=== PATIENT | male | born 1975 | race Caucasian/White ===

== ENCOUNTER 2016-08-15 06:05 | Emergency (ER) | payer SELFPAY ==
[2016-08-15 06:21] VITALS: BP 150/93
[2016-08-15] MEDS ORDERED: TETRACAINE HCL 0.5% OPH SOLN 2 ML OD ONE (06:36)
--- NOTE | 2016-08-15 06:45 | ER Document Report ---
ED General - General Chief Complaint: Eye Problem Stated Complaint: EYE SWELLING Mode of Arrival: Ambulatory Information source: Patient Notes: 41-year-old male history of styes presents with complaints of right upper eyelid swelling of the first 5 day duration. Patient notes symptoms worsen today, had improved over the past few days. Patient denies any fevers or chills denies any specific pain but notes it irritates his eye. Patient has had some drainage TRAVEL OUTSIDE OF THE [place] IN LAST 30 DAYS: No - HPI Onset: Last week Onset/Duration: Persistent Quality of pain: Burning Severity: Mild Pain Level: 1 Associated symptoms: Other Exacerbated by: Denies Relieved by: Denies Similar symptoms previously: Yes Recently seen / treated by doctor: Yes - Related Data Allergies/Adverse Reactions: No Known Allergies Allergy (Verified 04/18/15 04:47) Past Medical History - Social History Smoking Status: Current Every Day Smoker Cigarette use (# per day): Yes Chew tobacco use (# tins/day): No Smoking Education Provided: No Family History: Reviewed & Not Pertinent Patient has suicidal ideation: No Patient has homicidal ideation: No Renal/ Medical History: Denies: Hx Peritoneal Dialysis Musculoskeltal Medical History: Reports Hx Musculoskeletal Deformity, Reports Hx Musculoskeletal Trauma Psychiatric Medical History: Reports: Hx Anxiety Past Surgical History: Reports: Hx Abdominal Surgery - hernia repair, Hx Herniorrhaphy, Hx Myringotomy - Immunizations Hx Diphtheria, Pertussis, Tetanus Vaccination: Yes Review of Systems - Review of Systems Notes: REVIEW OF SYSTEMS: CONSTITUTIONAL : Denies fever, chills, or sweats. Denies recent illness. EENT: right eyelid swelling pain CARDIOVASCULAR: Denies chest pain. Denies palpitations or racing or irregular heart beat. Denies ankle edema. RESPIRATORY: Denies cough, cold, or chest congestion. Denies shortness of breath, difficulty breathing, or wheezing. GASTROINTESTINAL: Denies abdominal pain or distention. Denies nausea, vomiting , or diarrhea. Denies blood in vomitus, stools, or per rectum. Denies black, tarry stools. Denies constipation. GENITOURINARY: Denies difficulty urinating, painful urination, burning, frequency, blood in urine, or discharge. MUSCULOSKELETAL: Denies back or neck pain or stiffness. Denies joint pain or swelling. SKIN: Denies rash, lesions or sores. HEMATOLOGIC : Denies easy bruising or bleeding. LYMPHATIC: Denies swollen, enlarged glands. NEUROLOGICAL: Denies confusion or altered mental status. Denies passing out or loss of consciousness. Denies dizziness or lightheadedness. Denies headache. Denies weakness or paralysis or loss of use of either side. Denies problems with gait or speech. Denies sensory loss, numbness, or tingling. Denies seizures. PSYCHIATRIC: Denies anxiety or stress. Denies depression, suicidal ideation, or homicidal ideation. ALL OTHER SYSTEMS REVIEWED AND NEGATIVE. Dictation was performed using [employer] voice recognition software PHYSICAL EXAMINATION: GENERAL: Well-appearing, well-nourished and in no acute distress. HEAD: Atraumatic, normocephalic. EYES: Pupils equal round extraocular movements intact, conjunctiva are normal. right upper eyelid edema, tender in the lateral aspect ENT: Nares patent NECK: Normal range of motion LUNGS: No respiratory distress Musculoskeletal: Normal range of motion NEUROLOGICAL: Normal speech, normal gait. PSYCH: Normal mood, normal affect. SKIN: Warm, Dry, normal turgor, no rashes or lesions noted. Physical Exam - Vital signs Vitals: Temp Pulse Resp BP Pulse Ox 97.9 F 81 16 150/93 H 98 08/15/16 06:16 08/15/16 06:16 08/15/16 06:16 08/15/16 06:16 08/15/16 06:16 Course - Re-evaluation Re-evalutation: 08/15/16 06:46 41-year-old male presents with eyelid swelling, area was anesthetized evaluated small styes noted on the lateral aspect. Patient encouraged to do warm compress. There may be cellulitic component of the upper eyelid which would require antibiotics at this time. Patient otherwise well-appearing afebrile and stable for discharge with ophthalmology follow-up After performing a Medical Screening Examination, I estimate there is LOW risk for a RETAINED CORNEAL or LID FOREIGN BODY, DEEP SPACE INFECTION (e.g., ORBITAL CELLULITIS OR ABSCESS), ACUTE GLAUCOMA, PENETRATING GLOBE INJURY, RETINAL DETACHMENT, or MENINGITIS thus I consider the discharge disposition reasonable. I have reevaluated this patient multiple times and no significant life threatening changes are noted. Also, there is no evidence or peritonitis, sepsis , or toxicity. The patient and I have discussed the diagnosis and risks, and we agree with discharging home with outpatient follow-up with the understanding that symptoms and presentations can change. We also discussed returning to the Emergency Department immediately if new or worsening symptoms occur. We have discussed the symptoms which are most concerning (e.g., changing or worsening pain, vision changes, neck stiffness or fever) that necessitate immediate return. - Vital Signs Vital signs: Temp Pulse Resp BP Pulse Ox 97.9 F 81 16 150/93 H 98 08/15/16 06:16 08/15/16 06:16 08/15/16 06:16 08/15/16 06:16 08/15/16 06:16 Discharge - Discharge Clinical Impression: Edema of right upper eyelid Stye external Qualifiers: Laterality: right Eyelid: upper Qualified Code(s): H00.011 - Hordeolum externum right upper eyelid Condition: Stable Disposition: HOME, SELF-CARE Instructions: Srinivasan ([facility]) Prescriptions: Cephalexin Monohydrate [Keflex 500 mg Capsule] 500 mg PO QID #40 capsule Forms: Return to Work Referrals: FRANCISCA DUFFY DO [ACTIVE STAFF] - Follow up in 3-5 days
== END 2016-08-15 06:49 | disposition home or self-care (01) ==
LOC: ER 06:05
DX: H00.011 Hordeolum externum right upper eyelid (principal); H02.841 Edema of right upper eyelid; F17.210 Nicotine dependence, cigarettes, uncomplicated
CPT/HCPCS: 99283

== ENCOUNTER 2016-09-21 10:04 | Emergency (ER) | payer SELFPAY ==
--- NOTE | 2016-09-21 11:30 | ER Document Report ---
ED Eye Complaint - General Chief Complaint: Eye Pain Stated Complaint: EYE PAIN Time Seen by Provider: 09/21/16 11:18 Information source: Patient Notes: 41-year-old male who presents today with the onset yesterday of feeling some right eye upper eyelid swelling. Patient denies any foreign bodies into the eye. Patient works as a cook. Patient feels some mild irritation to his left upper eyelid, but right much greater than left. He denies any nausea, vomiting , fevers, blurry vision, or headaches. Patient wears only reading glasses. He does not wear contacts. TRAVEL OUTSIDE OF THE [place] IN LAST 30 DAYS: No - HPI Onset: Other - The above Eye location: Right Injury: No Occurred at: Home Quality of pain: Burning Severity: Mild Pain Level: 0 Exposure: Other - See above - Related Data Allergies/Adverse Reactions: No Known Allergies Allergy (Verified 09/21/16 10:21) Past Medical History - General Information source: Patient - Social History Smoking Status: Unknown if Ever Smoked Cigarette use (# per day): No Chew tobacco use (# tins/day): No Smoking Education Provided: No Frequency of alcohol use: None Family History: Reviewed & Not Pertinent Patient has suicidal ideation: No Patient has homicidal ideation: No Renal/ Medical History: Denies: Hx Peritoneal Dialysis Musculoskeltal Medical History: Reports Hx Musculoskeletal Deformity, Reports Hx Musculoskeletal Trauma Psychiatric Medical History: Reports: Hx Anxiety Past Surgical History: Reports: Hx Abdominal Surgery - hernia repair, Hx Herniorrhaphy, Hx Myringotomy - Immunizations Hx Diphtheria, Pertussis, Tetanus Vaccination: Yes Physical Exam - Vital signs Vitals: Temp Pulse Resp BP Pulse Ox 98.4 F 77 16 134/93 H 97 09/21/16 10:22 09/21/16 10:22 09/21/16 10:22 09/21/16 10:22 09/21/16 10:22 Notes: Reviewed vital signs and nursing note as charted by RN. CONSTITUTIONAL: Alert and oriented and responds appropriately to questions. Well -appearing; well-nourished HEAD: Normocephalic; atraumatic EYES: PERRL; full extraocular range of motion; patient has some erythema and swelling to the upper eyelid margin of the right eye. There was no periorbital extension, swelling, or erythema. No foreign bodies present. Fluorescein exam is unremarkable. I everted the eyelid showing no foreign bodies or abscesses present. Patient's right eye has some very minimal crusting to the left upper eyelid. No obvious swelling present. ENT: Normal nose; no rhinorrhea; moist mucous membranes; pharynx without lesions noted NEURO: CN II through XII are intact. PSYCH: The patient's mood and manner are appropriate. Grooming and personal hygiene are appropriate. - HEENT Visual acuity- Right eye: 20/15 Visual acuity- Left eye: 20/20 Visual acuity- Both eyes: 20/15 Corrective lenses worn: No Course - Re-evaluation Re-evalutation: 09/21/16 11:26 Given the above history and physical examination I believe that the patient most likely suffering from hordeolum. I have explained warm compresses. I examination as recorded with a normal visual acuity exam. We will provide strict return precautions, ophthalmology follow-up, as well as erythromycin eye ointment for comfort. - Vital Signs Vital signs: Temp Pulse Resp BP Pulse Ox 98.4 F 77 16 134/93 H 97 09/21/16 10:22 09/21/16 10:22 09/21/16 10:22 09/21/16 10:22 09/21/16 10:22 Discharge - Discharge Clinical Impression: Hordeolum external Qualifiers: Laterality: right Eyelid: upper Qualified Code(s): H00.011 - Hordeolum externum right upper eyelid Condition: Good Disposition: HOME, SELF-CARE Instructions: Srinivasan ([facility]) Additional Instructions: Please apply warm compresses to the upper eyelid for 20 minutes on 3 times a day. Come back immediately with any facial swelling, nausea, vomiting, blurry vision, or fevers. Please follow-up with ophthalmology as we have discussed. Prescriptions: Erythromycin Base [Erythromycin] 3.5 gm OP 6XD 7 Days Referrals: DAMIR SAMUELS MD [[facility]] - Follow up as needed
[2016-09-21 11:44] VITALS: BP 138/83
== END 2016-09-21 11:42 | disposition home or self-care (01) ==
LOC: ER 10:04
DX: H00.011 Hordeolum externum right upper eyelid (principal); H57.11 Ocular pain, right eye
CPT/HCPCS: 99283

== ENCOUNTER 2016-10-13 05:56 | Emergency (ER) | payer OTHER ==
[2016-10-13] MEDS ORDERED: ASPIRIN 81 MG TABLET, CHEWABLE PO ONE (07:01)
[2016-10-13 07:52] LABS: ABSOLUTE BASOPHILS # (AUTO) 0.1 10^3/uL (0.0-0.2); ABSOLUTE EOSINOPHILS # (AUTO) 0.1 10^3/uL (0.0-0.6); ABSOLUTE LYMPHOCYTES (AUTO) 1.2 10^3/uL (0.5-4.7); ABSOLUTE MONOCYTES (AUTO) 0.8 10^3/uL (0.1-1.4); ABSOLUTE NEUT (AUTO) 3.9 10^3/uL (1.7-8.2); BASOPHILS % (AUTO) 0.9 % (0-2); EOSINOPHILS % (AUTO) 0.8 % (0-6); HEMATOCRIT 54.4 % (37.9-51.0); HEMOGLOBIN 18.4 g/dL (13.5-17.0); HGB HCT DIFFERENCE 0.8; LYMPHOCYTES % (AUTO) 19.9 % (13-45); MEAN CORPUSCULAR HGB CONC 33.8 g/dL (32.0-36.0); MEAN CORPUSCULAR VOLUME 95 fl (80-97); MONOCYTES % (AUTO) 13.2 % (3-13); RED BLOOD COUNT 5.76 10^6/uL (4.35-5.55); RED CELL DISTRIBUTION WIDTH 13.2 % (11.5-14.0); SEGMENTED NEUTROPHILS % (AUTO) 65.2 % (42-78)
[2016-10-13 08:01] LABS: PROTHROMBIN TIME 12.6 SEC (11.4-15.4)
--- NOTE | 2016-10-13 08:04 | EKG REPORT ---
SEVERITY:- NORMAL ECG - SINUS RHYTHM : Confirmed by: Remi Tipton MD 13-Oct-2016 08:03:36
[2016-10-13 08:14] LABS: ALANINE AMINOTRANSFERASE 21 U/L (21-72); ALBUMIN 4.4 g/dL (3.5-5.0); ALKALINE PHOSPHATASE 99 U/L (38-126); ANION GAP 11 (5-19); ASPARTATE AMINO TRANSFERASE 35 U/L (17-59); BILIRUBIN,DIRECT 0.4 mg/dL (0.0-0.4); BILIRUBIN,TOTAL 0.7 mg/dL (0.2-1.3); BLOOD UREA NITROGEN 13 mg/dL (7-20); CALCIUM 9.7 mg/dL (8.4-10.2); CARBON DIOXIDE 25 mmol/L (22-30); CHLORIDE 103 mmol/L (98-107); CREATINE KINASE 38 U/L (55-170); CREATININE RESULT 0.93 mg/dL (0.52-1.25); GLUCOSE 103 mg/dL (75-110); POTASSIUM 4.5 mmol/L (3.6-5.0); TOTAL PROTEIN 8.2 g/dL (6.3-8.2)
[2016-10-13 08:20] LABS: CREATINE KINASE MB 0.28 ng/mL (<4.55)
[2016-10-13] MEDS ORDERED: NORMAL SALINE 1000 ML 1,000 ML IV ONE (08:20)
[2016-10-13 08:26] LABS: TROPONIN I < 0.012 ng/mL
--- NOTE | 2016-10-13 08:28 | RADIOLOGY REPORT (SQ) ---
EXAM DESCRIPTION: CERV SP 4 OR 5 VIEWS COMPLETED DATE/TIME: 10/13/2016 8:11 am REASON FOR STUDY: cp left arm pain COMPARISON: None. NUMBER OF VIEWS: Five views. TECHNIQUE: AP, lateral, obliques and odontoid radiographic images acquired of the cervical spine. LIMITATIONS: None. FINDINGS: MINERALIZATION: Normal. ALIGNMENT: Anatomic. VERTEBRAE: Vertebral bodies of normal height. DISCS: Minimal disc space loss C4-5 with minimal osteophyte formation seen at most levels. FORAMINA: Mild neural foraminal narrowing on the left at C4-5, C5-6 and C6-7. Moderate neural forami nal narrowing on the right at C4-5 with mild narrowing on the right at C6-7. LATERAL AND POSTERIOR ELEMENTS: Status post left-sided laminectomy at C4, C5 and C6 with micro screw and plate devices being noted. HARDWARE: None in the spine. SOFT TISSUES: No masses or calcifications. Lung apices clear. OTHER: No other significant finding. IMPRESSION: Postoperative changes and mild degenerative changes. TECHNICAL DOCUMENTATION: JOB ID: [id number] [employer]- All Rights Reserved
--- NOTE | 2016-10-13 08:29 | RADIOLOGY REPORT (SQ) ---
EXAM DESCRIPTION: CHEST PA/LAT COMPLETED DATE/TIME: 10/13/2016 8:11 am REASON FOR STUDY: cp COMPARISON: None. EXAM PARAMETERS: NUMBER OF VIEWS: two views TECHNIQUE: Digital Frontal and Lateral radiographic views of the chest acquired. RADIATION DOSE: NA LIMITATIONS: none FINDINGS: LUNGS AND PLEURA: No opacities, masses or pneumothorax. No pleural effusion. MEDIASTINUM AND HILAR STRUCTURES: No masses or contour abnormalities. HEART AND VASCULAR STRUCTURES: Cardiac silhouette is of normal size. Mild vascular congestion. BONES: No acute findings. HARDWARE: None in the chest. OTHER: No other significant finding. IMPRESSION: Mild vascular congestion. TECHNICAL DOCUMENTATION: JOB ID: [id number] [employer]- All Rights Reserved
[2016-10-13] MEDS ORDERED: MAG HYDROX/AL HYDROX/SIMETH SUSP 30 ML UDCUP PO ONE (10:43)
[2016-10-13] MEDS ORDERED: METOCLOPRAMIDE HCL ORAL SOLN 10 MG/10 ML UDCUP PO ONE (10:43)
[2016-10-13] MEDS ORDERED: LIDOCAINE 2% VISCOUS SOLN 20 ML UDCUP PO ONE (10:43)
--- NOTE | 2016-10-13 14:13 | ER Document Report ---
ED General - General Chief Complaint: Chest Pain Stated Complaint: CHEST PAIN/ARM NUMBNESS Time Seen by Provider: 10/13/16 07:00 TRAVEL OUTSIDE OF THE [place] IN LAST 30 DAYS: No - HPI Patient complains to provider of: Chest pain left-sided Notes: If her left-sided chest pain started this morning upon awakening. Patient also states noticing that his left arm was numb and tingling. 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 States multiple surgeries. Unclear if the numbness and tingling is new. Patient states pressure in the chest rating 2 out of 5. Denies any fevers chills nausea vomiting shortness of breath recent travel denies any trauma denies any past medical history patient does smoke denies any family medical history. - Related Data Allergies/Adverse Reactions: No Known Allergies Allergy (Verified 09/21/16 10:21) Past Medical History - Social History Smoking Status: Unknown if Ever Smoked Family History: Reviewed & Not Pertinent Patient has suicidal ideation: No Patient has homicidal ideation: No Renal/ Medical History: Denies: Hx Peritoneal Dialysis Musculoskeltal Medical History: Reports Hx Musculoskeletal Deformity, Reports Hx Musculoskeletal Trauma Psychiatric Medical History: Reports: Hx Anxiety Past Surgical History: Reports: Hx Abdominal Surgery - hernia repair, Hx Herniorrhaphy, Hx Myringotomy - Immunizations Hx Diphtheria, Pertussis, Tetanus Vaccination: Yes Review of Systems - Review of Systems Constitutional: No symptoms reported EENT: No symptoms reported Cardiovascular: Chest pain Respiratory: No symptoms reported Gastrointestinal: No symptoms reported Genitourinary: No symptoms reported Male Genitourinary: No symptoms reported Musculoskeletal: No symptoms reported Skin: No symptoms reported Hematologic/Lymphatic: No symptoms reported Neurological/Psychological: No symptoms reported Physical Exam - Vital signs Vitals: Pulse Resp BP Pulse Ox 89 19 139/87 H 100 10/13/16 06:00 10/13/16 06:00 10/13/16 06:00 10/13/16 06:00 Interpretation: Normal - General General appearance: Appears well, Alert - HEENT Head: Normocephalic, Atraumatic Eyes: Normal Pupils: PERRL - Respiratory Respiratory status: No respiratory distress Chest status: Nontender Breath sounds: Normal Chest palpation: Normal - Cardiovascular Rhythm: Regular Heart sounds: Normal auscultation Murmur: No - Abdominal Inspection: Normal Distension: No distension Bowel sounds: Normal Tenderness: Nontender Organomegaly: No organomegaly - Back Back: Normal, Nontender - Extremities General upper extremity: Normal inspection, Nontender, Normal color, Normal ROM , Normal temperature General lower extremity: Normal inspection, Nontender, Normal color, Normal ROM , Normal temperature, Normal weight bearing. No: Brisa's sign - Neurological Neuro grossly intact: Yes Cognition: Normal Orientation: AAOx4 [place] Coma Scale Eye Opening: Spontaneous [place] Coma Scale Verbal: Oriented [place] Coma Scale Motor: Obeys Commands [place] Coma Scale Total: 15 Speech: Normal Motor strength normal: LUE, RUE, LLE, RLE Sensory: Normal - Psychological Associated symptoms: Normal affect, Normal mood - Skin Skin Temperature: Warm Skin Moisture: Dry Skin Color: Normal Course - Re-evaluation Re-evalutation: 10/13/16 15:13 The patient has atypical chest pain as the patient's chest pain is not suggestive of pulmonary embolus, cardiac ischemia, aortic dissection, or other serious etiology. Given the extremely low risk of these diagnoses further testing and evaluation for these possibilities does not appear to be indicated at this time. The patient has been instructed to return if the symptoms worsen or change in any way. Heart score is 1 discussed with assistant account manager socorro agrees with outpatient workup - Vital Signs Vital signs: Temp Pulse Resp BP Pulse Ox 98.1 F 87 19 142/91 H 98 10/13/16 11:00 10/13/16 06:11 10/13/16 14:01 10/13/16 14:01 10/13/16 14:01 - Laboratory Result Diagrams: 10/13/16 07:40 10/13/16 07:40 Laboratory results interpreted by me: 10/13/16 10/13/16 07:40 07:40 RBC 5.76 H Hgb 18.4 H Hct 54.4 H Monocytes % 13.2 H Creatine Kinase 38 L Discharge - Discharge Clinical Impression: Chest pain Qualifiers: Chest pain type: unspecified Qualified Code(s): R07.9 - Chest pain, unspecified Condition: Good Disposition: HOME, SELF-CARE Instructions: Aspirin (Cardiac) ([facility]), Chest Pain of Unclear Cause ([facility]), Chest Wall Pain ([facility]) Additional Instructions: Your chest x-ray and laboratory studies today do not show any significant signs of cardiac damage no signs or clear etiology for your chest pain. He follow-up with the assistant account manager provided tomorrow. Return to the ER symptoms worsen Forms: Return to Work Referrals: NAI HYED MD [ACTIVE STAFF] - Follow up as needed
[2016-10-13 14:39] VITALS: BP 142/91
--- NOTE | 2016-10-13 18:10 | EKG REPORT ---
SEVERITY:- NORMAL ECG - SINUS RHYTHM : Confirmed by: Remi Tipton MD 13-Oct-2016 18:09:33
--- NOTE | 2016-10-15 16:38 | EKG REPORT ---
SEVERITY:- NORMAL ECG - SINUS RHYTHM : Confirmed by: Remi Tipton MD 15-Oct-2016 16:38:04
== END 2016-10-13 14:48 | disposition home or self-care (01) ==
LOC: ER 05:56
DX: R07.9 Chest pain, unspecified (principal); R20.0 Anesthesia of skin
CPT/HCPCS: 93005 ×2; 99285; 96360; 36415; 82553; 82550; 85025; 85610; 80053; 84484; 72050; 71020; 93010; J3490; J7030

== ENCOUNTER 2016-10-15 14:34 | Emergency (ER) | payer OTHER ==
--- NOTE | 2016-10-15 15:01 | ER Document Report ---
ED Medical Screen (RME) - General Chief Complaint: Chest Pain Stated Complaint: CHEST PAIN Time Seen by Provider: 10/15/16 15:01 Mode of Arrival: Ambulatory Information source: Patient Notes: 41-year-old man who presents to the emergency room with episode of left-sided chest pain associated with shortness of breath. Patient was apparently evaluated for chest pain on . TRAVEL OUTSIDE OF THE [place] IN LAST 30 DAYS: No - Related Data Allergies/Adverse Reactions: No Known Allergies Allergy (Verified 10/15/16 14:45) Past Medical History Renal/ Medical History: Denies: Hx Peritoneal Dialysis Musculoskeltal Medical History: Reports Hx Musculoskeletal Deformity, Reports Hx Musculoskeletal Trauma Psychiatric Medical History: Reports: Hx Anxiety Past Surgical History: Reports: Hx Abdominal Surgery - hernia repair, Hx Herniorrhaphy, Hx Myringotomy - Immunizations Hx Diphtheria, Pertussis, Tetanus Vaccination: Yes Physical Exam - Vital signs Vitals: Temp Pulse Resp BP Pulse Ox 98.1 F 82 18 136/87 H 98 10/15/16 14:45 10/15/16 14:45 10/15/16 14:45 10/15/16 14:45 10/15/16 14:45 Course - Vital Signs Vital signs: Temp Pulse Resp BP Pulse Ox 98.1 F 82 18 136/87 H 98 10/15/16 14:45 10/15/16 14:45 10/15/16 14:45 10/15/16 14:45 10/15/16 14:45
[2016-10-15 15:41] LABS: ABSOLUTE EOSINOPHILS # (AUTO) 0.1 10^3/uL (0.0-0.6); ABSOLUTE LYMPHOCYTES (AUTO) 1.8 10^3/uL (0.5-4.7); ABSOLUTE MONOCYTES (AUTO) 0.5 10^3/uL (0.1-1.4); ABSOLUTE NEUT (AUTO) 3.7 10^3/uL (1.7-8.2); BASOPHILS % (AUTO) 0.5 % (0-2); EOSINOPHILS % (AUTO) 2.4 % (0-6); HEMATOCRIT 52.6 % (37.9-51.0); HEMOGLOBIN 17.7 g/dL (13.5-17.0); HGB HCT DIFFERENCE 0.5; LYMPHOCYTES % (AUTO) 29.6 % (13-45); MEAN CORPUSCULAR HGB CONC 33.7 g/dL (32.0-36.0); MEAN CORPUSCULAR VOLUME 95 fl (80-97); MONOCYTES % (AUTO) 8.3 % (3-13); RED BLOOD COUNT 5.54 10^6/uL (4.35-5.55); RED CELL DISTRIBUTION WIDTH 12.9 % (11.5-14.0); SEGMENTED NEUTROPHILS % (AUTO) 59.2 % (42-78); WHITE BLOOD COUNT 6.2 10^3/uL (4.0-10.5)
[2016-10-15 15:58] LABS: ALANINE AMINOTRANSFERASE 25 U/L (21-72); ALBUMIN 4.4 g/dL (3.5-5.0); ALKALINE PHOSPHATASE 82 U/L (38-126); ANION GAP 13 (5-19); ASPARTATE AMINO TRANSFERASE 27 U/L (17-59); BILIRUBIN,DIRECT 0.3 mg/dL (0.0-0.4); BILIRUBIN,TOTAL 0.6 mg/dL (0.2-1.3); BLOOD UREA NITROGEN 14 mg/dL (7-20); CALCIUM 9.4 mg/dL (8.4-10.2); CARBON DIOXIDE 25 mmol/L (22-30); CHLORIDE 102 mmol/L (98-107); CREATINE KINASE 36 U/L (55-170); CREATININE RESULT 0.89 mg/dL (0.52-1.25); GLUCOSE 133 mg/dL (75-110); POTASSIUM 4.3 mmol/L (3.6-5.0); TOTAL PROTEIN 7.7 g/dL (6.3-8.2)
[2016-10-15 16:10] LABS: CREATINE KINASE MB 0.37 ng/mL (<4.55); TROPONIN I < 0.012 ng/mL
--- NOTE | 2016-10-15 16:17 | RADIOLOGY REPORT (SQ) ---
EXAM DESCRIPTION: CTA CHEST COMPLETED DATE/TIME: 10/15/2016 3:55 pm REASON FOR STUDY: cp COMPARISON: Chest radiograph 10/13/2016 TECHNIQUE: CT scan of the chest performed using helical scanning technique with dynamic intravenous contrast injection. Images reviewed with lung, soft tissue and bone windows. Reconstructed coronal and sagittal MPR images reviewed. Additional 3 dimensional post-processing performed to develop Maximal Intensity Projection images (CO P). All images stored on PACS. All CT scanners at this facility use dose modulation, iterative reconstruction, and/or weight based d osing when appropriate to reduce radiation dose to as low as reasonably achievable (ALARA). [facility]: Dose Right [facility]: CareDose [facility]: Dose Right [facility]: Teradose 4D [facility]: [employer] CONTRAST TYPE AND DOSE: contrast/concentration: Isovue 370.00 mg/ml; Total Contrast Delivered: 68.0 ml; Total Saline Delivered: 80.0 ml RENAL FUNCTION: None required. The patient is less than 50 years old. RADIATION DOSE: 39.42 . LIMITATIONS: None. FINDINGS: LUNGS AND PLEURA: No masses, infiltrates, pneumothorax. No pleural effusions, calcificati ons. A 6 x 5 x 4 mm parenchymal based pulmonary nodule is seen within the right middle lobe (axial i mage 64). A 3 mm rounded parenchymal based pulmonary nodule is seen within the right middle lobe (ax ial image 72). A 3 mm triangular shaped subpleural pulmonary nodule is seen within the right middle lobe (axial image 74). AORTA AND GREAT VESSELS: No aneurysm or dissection. HEART: No pericardial effusion. PULMONARY ARTERIES: No emboli visualized in the main pulmonary arteries or the segmental branches. HILAR AND MEDIASTINAL STRUCTURES: No identified masses or abnormal nodes. HARDWARE: None in the chest. UPPER ABDOMEN: No significant findings. Limited exam. THYROID AND OTHER SOFT TISSUES: No masses. No adenopathy. BONES: No acute or significant finding. 3D MIPS: Confirm above findings. OTHER: No other significant finding. IMPRESSION: NORMAL CTA OF THE CHEST. NO PULMONARY EMBOLI. INCIDENTAL NOTE IS MADE OF RIGHT MIDDLE L OBE PULMONARY NODULES DETAILED ABOVE. RECOMMEND RISK STRATIFICATION AND FOLLOW-UP IMAGING IN ACCO RDANCE WITH CURRENT [employer] SOCIETY GUIDELINES. COMMENT: [employer] CRITERIA FOR FOLLOW-UP OF PULMONARY NODULES Incidentally detected new nodules in persons 35 or older. HIGH RISK: History of smoking or other known risk factors. TECHNICAL DOCUMENTATION: JOB ID: [id number] Quality ID # [id number]: Final reports with documentation of one or more dose reduction techniques (e.g., Au tomated exposure control, adjustment of the mA and/or kV according to patient size, use of iterative reconstruction technique) 2010 [employer]- All Rights Reserved
[2016-10-15] MEDS ORDERED: NITROGLYCERIN 0.4 MG/TAB 25 TAB/BOTTLE SL PRN (16:18)
--- NOTE | 2016-10-15 16:20 | ER Document Report ---
ED General - General Chief Complaint: Chest Pain Stated Complaint: CHEST PAIN Time Seen by Provider: 10/15/16 15:01 Mode of Arrival: Ambulatory Notes: 41-year-old male with a [id number] smoking history presents to the ED with chest pain. Described as central. Started 3 days ago after her morning shower with central substernal, and was accompanied by left arm numbness in the upper arm and the fourth and fifth fingers. He was seen in the ED had a negative workup and was diagnosed with cervical radiculopathy. Since then the chest pain has persisted and worsened today and is now accompanied by shortness of breath. No nausea vomiting. No leg swelling. Other than smoking he has no risk factors for pulmonary embolism. Provider at triage ordered an EKG which is normal, set of labs showing a normal troponin, and a CT pulmonary angiogram results of which are pending on my evaluation. TRAVEL OUTSIDE OF THE [place] IN LAST 30 DAYS: No - Related Data Allergies/Adverse Reactions: No Known Allergies Allergy (Verified 10/15/16 14:45) Past Medical History - General Information source: Patient - Social History Smoking Status: Current Every Day Smoker Chew tobacco use (# tins/day): No Smoking Education Provided: Yes - The patient ED visit today was directly related to their abuse of tobacco. Frequency of alcohol use: Occasional Drug Abuse: None Family History: Reviewed & Not Pertinent Patient has suicidal ideation: No Patient has homicidal ideation: No Renal/ Medical History: Denies: Hx Peritoneal Dialysis Musculoskeltal Medical History: Reports Hx Musculoskeletal Deformity, Reports Hx Musculoskeletal Trauma Psychiatric Medical History: Reports: Hx Anxiety Past Surgical History: Reports: Hx Abdominal Surgery - hernia repair, Hx Herniorrhaphy, Hx Myringotomy - Immunizations Hx Diphtheria, Pertussis, Tetanus Vaccination: Yes Review of Systems - Review of Systems Notes: REVIEW OF SYSTEMS GEN: Denies fever, chills, weight loss ENT: Denies sore throat, nasal discharge, ear pain EYES: Denies blurry vision, eye pain, discharge CV: \ RESP: Denies cough, shortness of breath, wheezing GI: Denies abdominal pain, nausea, vomiting, diarrhea MSK: Denies joint pain/swelling, edema, SKIN: Denies rash, skin lesions LYMPH: Denies swollen glands/lymph nodes NEURO: Denies headache, focal weakness, PSYCH: Denies depression, suicidal or homicidal ideation PHYSICAL EXAMINATION General: No acute distress, well-nourished Head: Atraumatic, normocephalic ENT: Mouth normal, oropharynx moist, no exudates or tonsillar enlargement Eyes: Conjunctiva normal, pupils equal, lids normal Neck: No JVD, supple, no guarding CVS: Normal rate, regular rhythm, no murmurs Resp: No resp distress, equal and normal breath sounds bilaterally GI: Nondistended, soft, no tenderness to palpation, no rebound or guarding Ext: No deformities, no edema, normal range of motion in upper and lower ext Back: No CVA or midline TTP Skin: No rash, warm Lymphatic: No lymphadeopathy noted Neuro: Awake, alert. Face symmetric. GCS 15. Physical Exam - Vital signs Vitals: Temp Pulse Resp BP Pulse Ox 98.1 F 82 18 136/87 H 98 10/15/16 14:45 10/15/16 14:45 10/15/16 14:45 10/15/16 14:45 10/15/16 14:45 Course - Re-evaluation Re-evalutation: 10/15/16 16:19 41-year-old male presents with 2-1/2-3 days of substernal pressure-like chest pain radiating to left arm with numbness. His initial workup a few days ago in the ED was negative. He returns here with a normal EKG and a negative troponin which would rule out an STEMI, he also had a CT pulmonary angiogram ordered in triage which is normal. Given his symptoms I will try some nitroglycerin, his heart score is 4 and he is not able to follow up as an outpatient he will be admitted for stress testing tomorrow. 10/15/16 16:[address] pulmonary angiographic. Will give aspirin and nitro. Discussed case with Dr. Guo will admit overnight for a positive stress test. - Vital Signs Vital signs: Temp Pulse Resp BP Pulse Ox 98.1 F 82 18 136/87 H 100 10/15/16 14:45 10/15/16 14:45 10/15/16 14:45 10/15/16 14:45 10/15/16 16:00 - Laboratory Result Diagrams: 10/15/16 15:05 10/15/16 15:05 Laboratory results interpreted by me: 10/15/16 10/15/16 15:05 15:05 Hgb 17.7 H Hct 52.6 H Glucose 133 H Creatine Kinase 36 L - EKG Interpretation by Me EKG shows normal: Sinus rhythm Rate: Normal - Ischemic change normal ST and T waves Discharge - Discharge Clinical Impression: Chest pain Qualifiers: Chest pain type: unspecified Qualified Code(s): R07.9 - Chest pain, unspecified Condition: Good Disposition: ADMITTED OBSERVATION Admitting Provider: Hospitalist Unit Admitted: Telemetry
[2016-10-15] MEDS ORDERED: ASPIRIN 325 MG TABLET PO ONE (16:29)
[2016-10-15 17:38] VITALS: BP 135/81
--- NOTE | 2016-10-15 18:04 | PDOC CONSULTATION ---
Consultation Consult Date: 10/15/16 Attending physician:: BAILEY MAE Consult reason:: Chest pain History of Present Illness Admission Date/PCP: 10/15/16 16:39 OBI SPANGLER DO History of Present Illness: SANTI GUERRERO II is a 41 year old male with a [id number] smoking history presents to the ED with chest pain. Described as left sided parasternal. This is a dull ache and now has some sharp quality to it. Chest pain started 3 days ago after morning shower with central substernal, and was accompanied by left arm numbness in the upper arm and the fourth and fifth fingers. He was seen in the ED had a negative workup and was diagnosed with cervical radiculopathy. Since then the chest pain has persisted and worsened today and is now accompanied by shortness of breath. No nausea, vomiting, diaphoresis. No leg swelling. Other than smoking he has no risk factors. CTA was negative for PE and for pneumonia. Past Medical History Medical History: None Past Surgical History Past Surgical History: Reports: Herniorrhaphy Social History Smoking Status: Current Every Day Smoker Cigarettes Packs Per Day: 1 Frequency of Alcohol Use: Occasional Hx Recreational Drug Use: No Hx Prescription Drug Abuse: No Family History Family History: COPD, DM Parental Family History Reviewed: Yes Children Family History Reviewed: Yes Sibling(s) Family History Reviewed.: Yes Medication/Allergy Home Medications: No Home Medications 02/06/11 Amoxicillin 500 mg PO TID #21 tablet 05/11/12 Antipyrine/Benzocaine/Glycerin [Aurodex Otic Soln 10 ml] 1 dropperful AD ASDIR PRN #1 bottle 05/11/12 Ciprofloxacin HCl/Hc [Cipro Hc Otic Suspension 10 Ml Bottle] 100 drop AD BID #1 bottle 05/11/12 Ondansetron [Zofran Odt 4 mg Tablet] 1 - 2 tab PO Q4H PRN #15 tab.rapdis Cyclobenzaprine HCl [Flexeril 10 Mg Tablet] 10 mg PO TID #15 tablet 05/27/14 Hydrocodone/Acetaminophen [[place] 5-325 Tablet] 1 each PO Q4 PRN #15 tablet 05/27 Penicillin V Potassium [Penicillin Vk 500 mg Tablet] 500 mg PO BID #20 tablet Oxycodone HCl/Acetaminophen [Percocet 5-325 mg Tablet] 1 - 2 tab PO ASDIR PRN # 15 tablet 04/18/15 Cephalexin Monohydrate [Keflex 500 mg Capsule] 500 mg PO QID #40 capsule Erythromycin Base [Erythromycin] 3.5 gm OP 6XD 7 Days 09/21/16 Esomeprazole Strontium 1 cap PO DAILY #30 capsule. 10/15/16 Allergies/Adverse Reactions: No Known Allergies Allergy (Verified 10/15/16 14:45) Review of Systems Constitutional: PRESENT: weight loss. ABSENT: chills, fever(s), headache(s), weight gain Eyes: ABSENT: visual disturbances Ears: ABSENT: hearing changes Cardiovascular: PRESENT: chest pain. ABSENT: dyspnea on exertion, edema, orthropnea, palpitations Respiratory: PRESENT: as per HPI, dyspnea. ABSENT: cough, hemoptysis, sputum Gastrointestinal: PRESENT: heartburn. ABSENT: abdominal pain, coffee ground emesis, constipation, diarrhea, dysphagia, hematemesis, hematochezia, melena, nausea, vomiting Genitourinary: ABSENT: dysuria, hematuria Musculoskeletal: ABSENT: joint swelling Integumentary: ABSENT: rash, wounds Neurological: ABSENT: abnormal gait, abnormal speech, confusion, dizziness, focal weakness, syncope Psychiatric: ABSENT: anxiety, depression, homidical ideation, suicidal ideation Endocrine: PRESENT: polyuria. ABSENT: cold intolerance, heat intolerance, polydipsia Hematologic/Lymphatic: ABSENT: easy bleeding, easy bruising Physical Exam Vital Signs: Temp Pulse Resp BP Pulse Ox 98.1 F 76 21 H 135/81 H 98 10/15/16 14:45 10/15/16 16:53 10/15/16 17:00 10/15/16 17:01 10/15/16 17:01 General appearance: PRESENT: no acute distress, well-developed, well-nourished Head exam: PRESENT: atraumatic, normocephalic Eye exam: PRESENT: conjunctiva pink, EOMI, PERRLA, other - bilateral stye. ABSENT: scleral icterus Ear exam: PRESENT: normal external ear exam Mouth exam: PRESENT: moist, tongue midline Throat exam: PRESENT: other - posterior pharyngeal injection Neck exam: ABSENT: carotid bruit, JVD, lymphadenopathy, thyromegaly Respiratory exam: PRESENT: clear to auscultation cassandra, prolonged expiratory phas , unlabored. ABSENT: crackles, rales, rhonchi, tachypnea, wheezes Cardiovascular exam: PRESENT: RRR, +S1, +S2. ABSENT: diastolic murmur, rubs, systolic murmur Pulses: PRESENT: normal dorsalis pedis pul Vascular exam: PRESENT: normal capillary refill GI/Abdominal exam: PRESENT: normal bowel sounds, soft. ABSENT: distended, guarding, mass, organolmegaly, rebound, tenderness Rectal exam: PRESENT: deferred Extremities exam: PRESENT: full ROM. ABSENT: calf tenderness, clubbing, pedal edema Neurological exam: PRESENT: alert, awake, oriented to person, oriented to place , oriented to time, oriented to situation, CN II-XII grossly intact. ABSENT: motor sensory deficit Psychiatric exam: PRESENT: appropriate affect, normal mood. ABSENT: homicidal ideation, suicidal ideation Skin exam: PRESENT: dry, intact, warm. ABSENT: cyanosis, rash Results Laboratory Results: 10/13/16 10/13/16 10/15/16 07:40 11:10 15:05 WBC 6.2 Hgb 17.7 H Hct 52.6 H Plt Count 167 Creatinine Glucose Creatine Kinase CK-MB (CK-2) Troponin I < 0.012 < 0.012 10/15/16 10/15/16 15:05 15:05 WBC Hgb Hct Plt Count Creatinine 0.89 Glucose 133 H Creatine Kinase 36 L CK-MB (CK-2) 0.37 Troponin I < 0.012 Impressions: Chest/Abdomen CTA 10/15/16 15:02 IMPRESSION: NORMAL CTA OF THE CHEST. NO PULMONARY EMBOLI. INCIDENTAL NOTE IS MADE OF RIGHT MIDDLE LOBE PULMONARY NODULES DETAILED ABOVE. RECOMMEND RISK STRATIFICATION AND FOLLOW-UP IMAGING IN ACCORDANCE WITH CURRENT [employer] GUIDELINES. Assessment & Plan - Diagnosis (1) Chest pain Qualifiers: Chest pain type: unspecified Qualified Code(s): R07.9 - Chest pain, unspecified Is this a current diagnosis for this admission?: YesPlan: Patient's only risk factor for cardiac disease is smoking beyond his gender. Patient has no diagnosis of hypertension, hyperlipidemia, family history, diabetes mellitus. Had 3 negative troponins over the last 2 days. Patient has had no change in his EKG and has normal sinus rhythm without any ST segment elevation or depression. Patient does have a likely source of cervical radiculopathy. Will attempt to get outpatient stress test for patient through cardiology. Patient has been advised to undergo risk stratification with his primary care physician. Patient is also been avoiding advised to stop smoking. He is advised to continue to take 81 mg aspirin. Also suspect a possible GI source as he does some indigestion. (2) Pulmonary nodule Is this a current diagnosis for this admission?: YesPlan: Advised that he will need to follow on these within the next 3-6 months for a repeat CTA. (3) Tobacco abuse Is this a current diagnosis for this admission?: YesPlan: Been advised to stop smoking. Counseling lasted greater than 3 minutes. 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
== END 2016-10-15 17:48 | disposition home or self-care (01) ==
LOC: ER 14:34 → EH 16:39 → UNDOADMOB 16:39 → UNDODISOB 17:47
PROC: HZ31ZZZ Individual Counseling for Substance Abuse Treatment, Behavioral (ICD-10-PCS; principal; 2016-10-15)
DX: R07.9 Chest pain, unspecified (principal); R91.1 Solitary pulmonary nodule; F17.210 Nicotine dependence, cigarettes, uncomplicated; D75.1 Secondary polycythemia; R63.4 Abnormal weight loss; R35.8 Other polyuria; R06.02 Shortness of breath; M54.12 Radiculopathy, cervical region; Z68.29 Body mass index [BMI] 29.0-29.9, adult; Z79.899 Other long term (current) drug therapy; Z82.5 Family history of asthma and other chronic lower respiratory diseases
CPT/HCPCS: 36415; 71275; 80053; 82550; 82553; 84484; 85025; 99285

== ENCOUNTER → 2016-10-20 | Outpatient (CLI) | payer OTHER ==
[2016-10-20 07:23] LABS: ABSOLUTE BASOPHILS # (AUTO) 0.1 10^3/uL (0.0-0.2); ABSOLUTE EOSINOPHILS # (AUTO) 0.3 10^3/uL (0.0-0.6); ABSOLUTE LYMPHOCYTES (AUTO) 2.2 10^3/uL (0.5-4.7); ABSOLUTE MONOCYTES (AUTO) 0.6 10^3/uL (0.1-1.4); ABSOLUTE NEUT (AUTO) 5.7 10^3/uL (1.7-8.2); BASOPHILS % (AUTO) 0.9 % (0-2); EOSINOPHILS % (AUTO) 3.2 % (0-6); HEMATOCRIT 51.3 % (37.9-51.0); HEMOGLOBIN 17.2 g/dL (13.5-17.0); HGB HCT DIFFERENCE 0.3; LYMPHOCYTES % (AUTO) 24.7 % (13-45); MEAN CORPUSCULAR HEMOGLOBIN 31.7 pg (27.0-33.4); MEAN CORPUSCULAR HGB CONC 33.6 g/dL (32.0-36.0); MEAN CORPUSCULAR VOLUME 94 fl (80-97); MONOCYTES % (AUTO) 7.2 % (3-13); RED BLOOD COUNT 5.44 10^6/uL (4.35-5.55); RED CELL DISTRIBUTION WIDTH 12.8 % (11.5-14.0); WHITE BLOOD COUNT 8.8 10^3/uL (4.0-10.5)
[2016-10-20 07:41] LABS: ALANINE AMINOTRANSFERASE 33 U/L (21-72); ALBUMIN 4.5 g/dL (3.5-5.0); ALKALINE PHOSPHATASE 100 U/L (38-126); ANION GAP 12 (5-19); ASPARTATE AMINO TRANSFERASE 29 U/L (17-59); BILIRUBIN,DIRECT 0.3 mg/dL (0.0-0.4); BILIRUBIN,TOTAL 0.4 mg/dL (0.2-1.3); BLOOD UREA NITROGEN 18 mg/dL (7-20); CALCIUM 9.6 mg/dL (8.4-10.2); CARBON DIOXIDE 24 mmol/L (22-30); CHLORIDE 107 mmol/L (98-107); CHOLESTEROL 188.03 mg/dL (0-200); CREATININE RESULT 0.95 mg/dL (0.52-1.25); Direct HDL 36 mg/dL (>40); GLUCOSE 99 mg/dL (75-110); POTASSIUM 4.3 mmol/L (3.6-5.0); SODIUM 142.5 mmol/L (137-145); TOTAL PROTEIN 7.9 g/dL (6.3-8.2); TRIGLYCERIDES 294 mg/dL (<150)
[2016-10-20 07:52] LABS: DIRECT LDL 128 mg/dL (<100)
[2016-10-20 07:55] LABS: C-REACTIVE PROTEIN < 5.0 mg/L (<10.0); VLDL CHOLESTEROL 58.8 mg/dL (10-31)
[2016-10-20 08:16] LABS: ERYTHROCYTE SEDIMENTATION RATE 10 mm/hr (0-15)
[2016-10-20 08:46] LABS: THYROID STIMULATING HORMONE 3.52 uIU/mL (0.47-4.68)
== END ==
LOC: LAB 07:00
PROVIDERS: ATTEND Nurse Practitioner Family
DX: F17.210 Nicotine dependence, cigarettes, uncomplicated (principal); M94.0 Chondrocostal junction syndrome [Tietze]; R03.0 Elevated blood-pressure reading, without diagnosis of hypertension; R07.89 Other chest pain
CPT/HCPCS: 36415; 80053; 80061; 83036; 84439; 84443; 85025; 85652; 86140

== ENCOUNTER → 2016-10-26 | Outpatient (CLI) | payer OTHER ==
--- NOTE | 2016-10-30 15:11 | XCELERA REPORT ---
[address] [address] Transthoracic Echocardiogram Report Name: SANTI GUERRERO II Age: 41 yrs Gender: Male : 1975 Patient Status: Outpatient Patient Location: Study Date: 10/26/2016 12:55 PM Height: 62 in Weight: 160 lb BSA: 1.7 m2 Procedure: A complete two-dimensional transthoracic echocardiogram was performed (2D, M-mode, spectral and color flow Doppler). The study was technically adequate with some images being suboptimal in quality. Reason For Study: CP R07.9 Ordering Physician: NAI HYDE Performed By: Aggie Linn Interpretation Summary The Ejection Fraction estimate is 55-60% Doppler measurements suggest pseudonormalized left ventricular relaxation, which is associated with grade II/IV or mild to moderate diastolic dysfunction The left ventricle is grossly normal size. Wall motion cannot be accurately commented on, but no definite regional wall motion abnormalities noted. The right ventricular systolic function is normal. The left atrial size is normal. The right atrium is normal in size There is a trace amount of mitral regurgitation There is no mitral valve stenosis. No aortic regurgitation is present. There is no aortic valve stenosis There is a trace or physiologic amount of tricuspid regurgitation Tricuspid regurgitation jet envelope not well defined to measure RV systolic pressure accurately. The aortic root is not well visualized but is probably normal size. The inferior vena cava appeared normal and decreased < 50% with respiration (RAP 10-15 mmHg) There is no pericardial effusion. MMode/2D Measurements \T\ Calculations RVDd: 2.5 cm LVIDd: 5.1 cm FS: 33.0 % Ao root diam: 2.3 cm IVSd: 0.88 cm LVIDs: 3.4 cm EDV(Teich): 123.2 ml LVPWd: 0.91 cmESV(Teich): 47.7 ml Ao root area: 4.1 cm2 EF(Teich): 61.3 % LA dimension: 3.0 cm LVOT diam: 2.0 cm LVOT area: 3.0 cm2 Doppler Measurements \T\ Calculations MV E max farooq: MV P1/2t max farooq: Ao V2 max: LV V1 max P.4 cm/sec 81.4 cm/sec 117.3 cm/sec 2.8 mmHg MV A max farooq: MV P1/2t: 50.1 msec Ao max PG: LV V1 max: 49.9 cm/sec MVA(P1/2t): 4.4 cm2 5.5 mmHg 82.9 cm/sec MV E/A: 1.7 MV dec slope: DEVANG(V,D): 2.1 cm2 476.0 cm/sec2 PA V2 max: TR max farooq: 76.5 cm/sec 210.4 cm/sec PA max PG: TR max P.7 mmHg 2.3 mmHg Left Ventricle The left ventricle is grossly normal size. The Ejection Fraction estimate is 55-60%. Doppler measurements suggest pseudonormalized left ventricular relaxation, which is associated with grade II/IV or mild to moderate diastolic dysfunction. Wall motion cannot be accurately commented on, but no definite regional wall motion abnormalities noted. Right Ventricle The right ventricle is grossly normal size. There is normal right ventricular wall thickness. The right ventricular systolic function is normal. Atria The right atrium is normal in size. The left atrial size is normal. There is no Doppler evidence for an interatrial shunt. Mitral Valve The mitral valve is grossly normal. There is no mitral valve stenosis. There is a trace amount of mitral regurgitation. Aortic Valve The aortic valve is grossly normal. There is no aortic valve stenosis. No aortic regurgitation is present. Tricuspid Valve The tricuspid valve is not well visualized, but is grossly normal. There is no tricuspid stenosis. There is a trace or physiologic amount of tricuspid regurgitation. Tricuspid regurgitation jet envelope not well defined to measure RV systolic pressure accurately. Pulmonic Valve The pulmonic valve is not well visualized. Great Vessels The aortic root is not well visualized but is probably normal size. The inferior vena cava appeared normal and decreased < 50% with respiration (RAP 10-15 mmHg). Effusions There is no pericardial effusion. : NAI HYDE > Dang Awan
== END ==
LOC: SP 12:45
PROVIDERS: ATTEND Specialist
DX: R07.9 Chest pain, unspecified (principal)
CPT/HCPCS: 93306

== ENCOUNTER 2016-10-31 11:23 | Emergency (ER) | payer OTHER ==
[2016-10-31] MEDS ORDERED: KETOROLAC TROMETHAMINE INJ/PF 30 MG/1 ML SDV IV ONE (11:42)
[2016-10-31] MEDS ORDERED: NORMAL SALINE 1000 ML 1,000 ML IV ONE (11:42)
[2016-10-31] MEDS ORDERED: ONDANSETRON HCL INJ/PF 4 MG/2 ML SDV IV ONE (11:42)
--- NOTE | 2016-10-31 11:45 | ER Document Report ---
ED Medical Screen (RME) - General Chief Complaint: Headache Stated Complaint: HEADACHE,BLURRED VISION Time Seen by Provider: 10/31/16 11:40 Mode of Arrival: Ambulatory Information source: Patient - pt normally doesn't set MOODY but has had severe MOODY for the past 3 days -- today developed blurry vision and some neck stiffness. Went to see PCP earlier today and was referred here for further evaluation. TRAVEL OUTSIDE OF THE [place] IN LAST 30 DAYS: No - Related Data Allergies/Adverse Reactions: No Known Allergies Allergy (Verified 10/31/16 11:31) Past Medical History Renal/ Medical History: Denies: Hx Peritoneal Dialysis Musculoskeltal Medical History: Reports Hx Musculoskeletal Deformity, Reports Hx Musculoskeletal Trauma Psychiatric Medical History: Reports: Hx Anxiety Past Surgical History: Reports: Hx Abdominal Surgery - hernia repair, Hx Herniorrhaphy, Hx Myringotomy - Immunizations Hx Diphtheria, Pertussis, Tetanus Vaccination: Yes Physical Exam - Vital signs Vitals: Temp Pulse Resp BP Pulse Ox 98.1 F 85 16 120/89 H 98 10/31/16 11:32 10/31/16 11:32 10/31/16 11:32 10/31/16 11:32 10/31/16 11:32 Course - Vital Signs Vital signs: Temp Pulse Resp BP Pulse Ox 98.1 F 85 16 120/89 H 98 10/31/16 11:32 10/31/16 11:32 10/31/16 11:32 10/31/16 11:32 10/31/16 11:32
[2016-10-31 12:10] LABS: ABSOLUTE BASOPHILS # (AUTO) 0.1 10^3/uL (0.0-0.2); ABSOLUTE EOSINOPHILS # (AUTO) 0.1 10^3/uL (0.0-0.6); ABSOLUTE LYMPHOCYTES (AUTO) 1.3 10^3/uL (0.5-4.7); ABSOLUTE MONOCYTES (AUTO) 0.4 10^3/uL (0.1-1.4); ABSOLUTE NEUT (AUTO) 2.6 10^3/uL (1.7-8.2); EOSINOPHILS % (AUTO) 1.6 % (0-6); HEMATOCRIT 50.8 % (37.9-51.0); HEMOGLOBIN 17.8 g/dL (13.5-17.0); HGB HCT DIFFERENCE 2.6; LYMPHOCYTES % (AUTO) 29.9 % (13-45); MEAN CORPUSCULAR HEMOGLOBIN 33.1 pg (27.0-33.4); MEAN CORPUSCULAR VOLUME 95 fl (80-97); MONOCYTES % (AUTO) 8.6 % (3-13); RED BLOOD COUNT 5.37 10^6/uL (4.35-5.55); RED CELL DISTRIBUTION WIDTH 12.8 % (11.5-14.0); SEGMENTED NEUTROPHILS % (AUTO) 57.9 % (42-78); WHITE BLOOD COUNT 4.5 10^3/uL (4.0-10.5)
[2016-10-31 12:26] LABS: ALANINE AMINOTRANSFERASE 21 U/L (21-72); ALBUMIN 4.5 g/dL (3.5-5.0); ALKALINE PHOSPHATASE 84 U/L (38-126); ANION GAP 11 (5-19); ASPARTATE AMINO TRANSFERASE 38 U/L (17-59); BILIRUBIN,DIRECT 0.4 mg/dL (0.0-0.4); BILIRUBIN,TOTAL 0.7 mg/dL (0.2-1.3); BLOOD UREA NITROGEN 12 mg/dL (7-20); CALCIUM 9.6 mg/dL (8.4-10.2); CARBON DIOXIDE 25 mmol/L (22-30); CHLORIDE 104 mmol/L (98-107); GLUCOSE 104 mg/dL (75-110); POTASSIUM 4.6 mmol/L (3.6-5.0); SODIUM 139.7 mmol/L (137-145)
--- NOTE | 2016-10-31 12:26 | RADIOLOGY REPORT (SQ) ---
EXAM DESCRIPTION: CT HEAD WITHOUT COMPLETED DATE/TIME: 10/31/2016 12:11 pm REASON FOR STUDY: MOODY COMPARISON: None. TECHNIQUE: Axial images acquired through the brain without intravenous contrast. Images reviewed wi th bone, brain and subdural windows. Images stored on PACS. All CT scanners at this facility use dose modulation, iterative reconstruction, and/or weight based d osing when appropriate to reduce radiation dose to as low as reasonably achievable (ALARA). [facility]: Dose Right [facility]: CareDose [facility]: Dose Right [facility]: Teradose 4D [facility]: Smart [employer] RADIATION DOSE: Up-to-date CT equipment and radiation dose reduction techniques were employed. CTDIv ol: 64.6 mGy. DLP: 1163 mGy-cm. mGy. LIMITATIONS: None. FINDINGS: VENTRICLES: Normal size and contour. CEREBRUM: No masses. No hemorrhage. No midline shift. Normal srivastava/white matter differentiation. N o evidence for acute infarction. CEREBELLUM: No masses. No hemorrhage. No alteration of density. No evidence for acute infarction. EXTRAAXIAL SPACES: No fluid collections. No masses. ORBITS AND GLOBE: No intra- or extraconal masses. Normal contour of globe without masses. CALVARIUM: No fracture. PARANASAL SINUSES: No fluid or mucosal thickening. SOFT TISSUES: No mass or hematoma. OTHER: No other significant finding. IMPRESSION: NORMAL BRAIN CT WITHOUT CONTRAST. TECHNICAL DOCUMENTATION: JOB ID: [id number] Quality ID # [id number]: Final reports with documentation of one or more dose reduction techniques (e.g., Au tomated exposure control, adjustment of the mA and/or kV according to patient size, use of iterative reconstruction technique) 2010 [employer]- All Rights Reserved
[2016-10-31] MEDS ORDERED: DIPHENHYDRAMINE HCL 50 MG/ML VIAL IV ONE (13:43)
[2016-10-31] MEDS ORDERED: PROCHLORPERAZINE EDISYLATE INJ 10 MG/2 ML VIAL IV ONE (13:43)
--- NOTE | 2016-10-31 13:48 | ER Document Report ---
ED Headache - General Mode of Arrival: Ambulatory Information source: Patient TRAVEL OUTSIDE OF THE [place] IN LAST 30 DAYS: No - HPI Patient complains to provider of: Headache Associated symptoms: Other - See above <TINO WORTHY - Last Filed: 10/31/16 13:43> <KATINA DYSON - Last Filed: 10/31/16 15:54> - General Chief Complaint: Headache Stated Complaint: HEADACHE Time Seen by Provider: 10/31/16 11:40 Notes: Patient is a 41 year old male, with a past medical history including spinal stenosis, who presents to the emergency department complaining of a headache onset 3 days ago. Patient reports the headache came on suddenly with around a 3 out of 5 pain and gradually worsened into a 4 the following day. Patient reports that today it was around a 3 again but he started getting shooting pain into his temples that brought it back up to a 4. Patient states that the pain was so bad he had difficulty sleeping last night, states that it is exacerbated by coughing and is accompanied by some neck pain. Patient was told by his PCP, who he saw today, to come to the ED. Patient denies nausea and vomiting. (TINO WORTHY) - Related Data Allergies/Adverse Reactions: No Known Allergies Allergy (Verified 10/31/16 11:31) Home Medications: Current Home Medications Aspirin [Ecotrin 81 mg EC Tablet] 81 mg PO DAILY 10/31/16 [History] Lisinopril [Prinivil 2.5 mg Tablet] 1 tab PO DAILY 10/31/16 [History] Past Medical History - General Information source: Patient - pt normally doesn't set MOODY but has had severe MOODY for the past 3 days -- today developed blurry vision and some neck stiffness. Went to see PCP earlier today and was referred here for further evaluation. - Social History Smoking Status: Current Every Day Smoker Chew tobacco use (# tins/day): No Frequency of alcohol use: Occasional Drug Abuse: None Family History: Reviewed & Not Pertinent, COPD, DM - Past Medical History Cardiac Medical History: Reports: Hx Hypercholesterolemia Musculoskeltal Medical History: Reports Hx Musculoskeletal Deformity, Reports Hx Musculoskeletal Trauma Psychiatric Medical History: Reports: Hx Anxiety Past Surgical History: Reports: Hx Abdominal Surgery - hernia repair, Hx Herniorrhaphy, Hx Myringotomy - Immunizations Hx Diphtheria, Pertussis, Tetanus Vaccination: Yes <TINO WORTHY - Last Filed: 10/31/16 13:43> Review of Systems - Review of Systems Constitutional: No symptoms reported EENT: No symptoms reported Cardiovascular: No symptoms reported Respiratory: No symptoms reported Gastrointestinal: No symptoms reported Genitourinary: No symptoms reported Male Genitourinary: No symptoms reported Musculoskeletal: See HPI, Neck pain Skin: No symptoms reported Hematologic/Lymphatic: No symptoms reported Neurological/Psychological: See HPI, Headaches -: Yes All other systems reviewed and negative <TINO WORTHY - Last Filed: 10/31/16 13:43> Physical Exam - Vital signs Interpretation: Normal - General General appearance: Appears well, Alert - HEENT Head: Atraumatic, Tenderness - Tenderness to palpation of left frontal forehead , less tenderness in the right mormon than the left Neck: Normal - supple, chin to chest normal, Other - minimal tenderness to palpation of the cervical muscles. No: Carotid bruit - Respiratory Respiratory status: No respiratory distress Chest status: Nontender Breath sounds: Normal Chest palpation: Normal - Cardiovascular Rhythm: Regular Heart sounds: Normal auscultation Murmur: No - Back Back: Normal, Nontender - Extremities General upper extremity: Normal inspection General lower extremity: Normal inspection - Neurological Neuro grossly intact: Yes Cognition: Normal Orientation: AAOx4 [place] Coma Scale Eye Opening: Spontaneous [place] Coma Scale Verbal: Oriented [place] Coma Scale Motor: Obeys Commands [place] Coma Scale Total: 15 Speech: Normal - Psychological Associated symptoms: Normal affect, Normal mood - Skin Skin Temperature: Warm Skin Moisture: Dry Skin Color: Normal <TINO WORTHY - Last Filed: 10/31/16 13:43> Course - Laboratory Result Diagrams: 10/31/16 12:01 10/31/16 12:01 <TINO WORTHY - Last Filed: 10/31/16 13:43> - Laboratory Result Diagrams: 10/31/16 12:01 10/31/16 12:01 <KATINA DYSON - Last Filed: 10/31/16 15:54> - Re-evaluation Re-evalutation: 10/31/16 15:51 Patient reports he feels much better after the Benadryl and Compazine was administered. (KATINA DYSON) - Vital Signs Vital signs: Temp Pulse Resp BP Pulse Ox 98.2 F 78 18 113/92 H 99 10/31/16 15:41 10/31/16 15:41 10/31/16 15:41 10/31/16 15:41 10/31/16 15:41 - Laboratory Laboratory results interpreted by me: 10/31/16 12:01 Hgb 17.8 H Discharge <TINO WORTHY - Last Filed: 10/31/16 13:43> <KATINA DYSON - Last Filed: 10/31/16 15:54> - Discharge Clinical Impression: Muscle tension headache Condition: Stable Disposition: HOME, SELF-CARE Additional Instructions: Headache: The physician does not feel that the headache you are experiencing has a serious underlying cause. Most headaches are due to emotional stress, with resultant muscle tension (tension headache). Occasionally, headaches are secondary to changes in the blood vessels of the scalp (vascular headache and migraine headache). Sometimes, a headache is the first symptom of another developing illness, such as a viral infection. You have no evidence of stroke, bleeding, meningitis, or other serious cause of your headache. The treatment of headaches varies with the severity and cause of the pain. Not all headaches need pain shots. In fact, there is evidence that using narcotics for headaches may make them worse in the long run. The physician will determine the therapy that's in your best interest. If you develop a fever, if the headache is different from any you've previously experienced, or if the headache progressively worsens, then call your physician at once or go to the emergency room. TAKE TYLENOL, MOTRIN AND BENADRYL FOR HEADACHE IF NEEDED. REST TODAY. DRINK PLENTY OF FLUIDS. FOLLOW UP WITH A LOCAL MEDICAL DOCTOR IF NOT IMPROVING. RETURN TO THE EMERGENCY ROOM IF ANY NEW OR WORSENING SYMPTOMS. Forms: Return to Work, Special Work Note Scribe Attestation: 10/31/16 15:54 I personally performed the services described in the documentation, reviewed and edited the documentation which was dictated to the scribe in my presence, and it accurately records my words and actions. (KATINA DYSON) Scribe Documentation - Scribe Written by Iglesia:: iglesia Donnelly, 10/31/16, 1350 acting as scribe for :: Bill <TINO WORTHY - Last Filed: 10/31/16 13:43>
[2016-10-31 15:41] VITALS: BP 113/92
== END 2016-10-31 16:01 | disposition home or self-care (01) ==
LOC: ER 11:23
DX: G44.209 Tension-type headache, unspecified, not intractable (principal); M54.2 Cervicalgia; H53.8 Other visual disturbances; M43.6 Torticollis; F17.200 Nicotine dependence, unspecified, uncomplicated
CPT/HCPCS: 99284; 96374; 96375; 36415; 85025; 80053; 70450; J1200; J1885; J0780; J2405; J7030

== ENCOUNTER 2017-01-30 01:38 | Emergency (ER) | payer OTHER ==
[2017-01-30] MEDS ORDERED: ASPIRIN 81 MG TABLET, CHEWABLE PO ONE (03:17)
[2017-01-30] MEDS ORDERED: FAMOTIDINE 20 MG TABLET PO ONE (03:18)
[2017-01-30 03:38] LABS: ABSOLUTE BASOPHILS # (AUTO) 0.1 10^3/uL (0.0-0.2); ABSOLUTE EOSINOPHILS # (AUTO) 0.2 10^3/uL (0.0-0.6); ABSOLUTE LYMPHOCYTES (AUTO) 2.4 10^3/uL (0.5-4.7); ABSOLUTE MONOCYTES (AUTO) 0.7 10^3/uL (0.1-1.4); ABSOLUTE NEUT (AUTO) 4.6 10^3/uL (1.7-8.2); BASOPHILS % (AUTO) 0.8 % (0-2); HEMATOCRIT 46.2 % (37.9-51.0); HEMOGLOBIN 16.6 g/dL (13.5-17.0); HGB HCT DIFFERENCE 3.6; MEAN CORPUSCULAR HEMOGLOBIN 33.4 pg (27.0-33.4); MEAN CORPUSCULAR VOLUME 93 fl (80-97); MONOCYTES % (AUTO) 8.8 % (3-13); RED BLOOD COUNT 4.97 10^6/uL (4.35-5.55); RED CELL DISTRIBUTION WIDTH 12.9 % (11.5-14.0); SEGMENTED NEUTROPHILS % (AUTO) 57.4 % (42-78); WHITE BLOOD COUNT 7.9 10^3/uL (4.0-10.5)
--- NOTE | 2017-01-30 04:14 | RADIOLOGY REPORT (SQ) ---
EXAM DESCRIPTION: CHEST SINGLE VIEW COMPLETED DATE/TIME: 01/30/2017 3:42 am REASON FOR STUDY: chest pain COMPARISON: Chest x-ray 10/13/2016. CT chest 10/15/2016. EXAM PARAMETERS: NUMBER OF VIEWS: One view. TECHNIQUE: Single frontal radiographic view of the chest acquired. RADIATION DOSE: NA LIMITATIONS: None. FINDINGS: LUNGS AND PLEURA: No consolidation, pneumothorax or pleural effusion. MEDIASTINUM AND HILAR STRUCTURES: No masses. Contour normal. HEART AND VASCULAR STRUCTURES: Heart normal in size. Normal vasculature. BONES: No acute findings. HARDWARE: None in the chest. IMPRESSION: No acute radiographic finding in the chest. TECHNICAL DOCUMENTATION: JOB ID: [id number]
[2017-01-30 04:31] LABS: ALANINE AMINOTRANSFERASE 25 U/L (21-72); ALBUMIN 4.4 g/dL (3.5-5.0); ALKALINE PHOSPHATASE 95 U/L (38-126); ANION GAP 12 (5-19); ASPARTATE AMINO TRANSFERASE 25 U/L (17-59); BILIRUBIN,DIRECT 0.3 mg/dL (0.0-0.4); BILIRUBIN,TOTAL 0.4 mg/dL (0.2-1.3); BLOOD UREA NITROGEN 21 mg/dL (7-20); CALCIUM 9.9 mg/dL (8.4-10.2); CARBON DIOXIDE 25 mmol/L (22-30); CHLORIDE 106 mmol/L (98-107); CREATINE KINASE 41 U/L (55-170); CREATININE RESULT 0.89 mg/dL (0.52-1.25); GLUCOSE 103 mg/dL (75-110); POTASSIUM 4.5 mmol/L (3.6-5.0); SODIUM 143.1 mmol/L (137-145); TOTAL PROTEIN 7.2 g/dL (6.3-8.2)
--- NOTE | 2017-01-30 04:40 | ER Document Report ---
ED Cardiac - General Chief Complaint: Chest Pain Stated Complaint: CHEST PAIN Time Seen by Provider: 01/30/17 03:08 Notes: Patient is a 41-year-old male comes emergency department for chief complaint of chest pain. He states he has been having it for several days, intermittently, feels a little worse tonight, he states he feels a tickling sensation under" the left boob". He states he is taking naproxen for this, states he had a stress test within the past 3 months and it was negative, he states he was diagnosed as pain around the sternum in his chest wall. He states he has occasional cough, denies fever, he does smoke. He states he has not stopped smoking it. No first-degree family members with heart disease or OR. Denies history of family history of pulmonary embolism. Denies recent travel, surgery , lower extremity swelling. He states when the pain is sharper he feels a little bit short of breath but otherwise denies shortness of breath or dyspnea on exertion. He denies history of hypertension, diabetes, hyperlipidemia. TRAVEL OUTSIDE OF THE [place] IN LAST 30 DAYS: No - Related Data Allergies/Adverse Reactions: No Known Allergies Allergy (Verified 10/31/16 11:31) Past Medical History - General Information source: Patient - Social History Smoking Status: Current Every Day Smoker Chew tobacco use (# tins/day): No Smoking Education Provided: Yes - <3 min Frequency of alcohol use: None Drug Abuse: None Lives with: Family Family History: Reviewed & Not Pertinent, COPD, DM Patient has suicidal ideation: No Patient has homicidal ideation: No Renal/ Medical History: Denies: Hx Peritoneal Dialysis Musculoskeltal Medical History: Reports Hx Musculoskeletal Deformity, Reports Hx Musculoskeletal Trauma Psychiatric Medical History: Reports: Hx Anxiety Past Surgical History: Reports: Hx Abdominal Surgery - hernia repair, Hx Herniorrhaphy, Hx Myringotomy - Immunizations Hx Diphtheria, Pertussis, Tetanus Vaccination: Yes Review of Systems - Review of Systems Constitutional: No symptoms reported EENT: No symptoms reported Cardiovascular: See HPI Respiratory: No symptoms reported Gastrointestinal: No symptoms reported Genitourinary: No symptoms reported Male Genitourinary: No symptoms reported Musculoskeletal: See HPI Skin: No symptoms reported Hematologic/Lymphatic: No symptoms reported Neurological/Psychological: No symptoms reported Physical Exam - Vital signs Vitals: Pulse Ox 97 01/30/17 02:52 Interpretation: Normal - General General appearance: Appears well, Alert In distress: None - HEENT Head: Normocephalic, Atraumatic Eyes: Normal Pupils: PERRL - Respiratory Respiratory status: No respiratory distress Chest status: Tender - Very specific reproducible tenderness mainly over the left sternal border at the inferior aspect, otherwise very mild chest wall tenderness over the anterior chest generally, no other abnormalities noted on examination Breath sounds: Normal Chest palpation: Normal - Cardiovascular Rhythm: Regular. No: Tachycardia Heart sounds: Normal auscultation, S1 appreciated, S2 appreciated Murmur: No - Abdominal Inspection: Normal Distension: No distension Bowel sounds: Normal Tenderness: Nontender Organomegaly: No organomegaly - Back Back: Normal, Nontender - Extremities General upper extremity: Normal inspection, Nontender, Normal color, Normal ROM , Normal temperature General lower extremity: Normal inspection, Nontender, Normal color, Normal ROM , Normal temperature, Normal weight bearing. No: Brisa's sign - Neurological Neuro grossly intact: Yes Cognition: Normal Orientation: AAOx4 [place] Coma Scale Eye Opening: Spontaneous [place] Coma Scale Verbal: Oriented [place] Coma Scale Motor: Obeys Commands [place] Coma Scale Total: 15 Speech: Normal Motor strength normal: LUE, RUE, LLE, RLE Sensory: Normal - Psychological Associated symptoms: Normal affect, Normal mood - Skin Skin Temperature: Warm Skin Moisture: Dry Skin Color: Normal Course - Re-evaluation Re-evalutation: EKG sinus rhythm with no T-wave inversions or ST segment changes in consecutive leads. Normal axis. No significant change from prior. Chest x-ray unremarkable. CBC, chemistry, initial troponin unremarkable. Patient with reproducible chest wall pain on examination. His heart score is only 1 (smoking and a male less than 45 without any concerning story and no other risk factors). Troponin cycled and negative. Patient has had a recent stress test which was normal. His only risk factor smoking, he has no indicators of pulmonary embolism including no tachycardia, shortness of breath, he now has no pain unless I palpate over his chest wall. No lower extremity swelling, recent travel, surgeries, personal or family history of DVT. Discussed with patient. He states he is ready to leave, he requests prednisone, states he had prednisone for similar symptoms in the past, states this worked better than the naproxen. Giving Pepcid to avoid stomach upset while taking prednisone. I did discuss smoking cessation, patient states agreement with this plan, he states that he needs rest and he needs a couple of days off. He does agree to return if he worsens in any way. Low suspicion of ACS. Patient discharged with return precautions. - Vital Signs Vital signs: Temp Pulse Resp BP Pulse Ox 22 H 126/88 H 97 01/30/17 06:01 01/30/17 06:01 01/30/17 06:01 - Laboratory Result Diagrams: 01/30/17 03:25 01/30/17 03:25 Laboratory results interpreted by me: 01/30/17 03:25 BUN 21 H Creatine Kinase 41 L Discharge - Discharge Clinical Impression: Chest wall pain Chest pain Qualifiers: Chest pain type: unspecified Qualified Code(s): R07.9 - Chest pain, unspecified Condition: Stable Disposition: HOME, SELF-CARE Additional Instructions: Your workup today does not show any concerning abnormalities. Examination indicates chest wall pain, stop the naproxen, take the prednisone instead, apply heat to the chest wall area. Stop smoking. Follow-up closely with primary care for additional evaluation and management. Return to the emergency department for any concerning or worsening symptoms including worsening pain, difficulty breathing, fever, or any other concerning symptoms. Prescriptions: Famotidine [Pepcid 20 mg Tablet] 20 mg PO DAILY #12 tablet Prednisone [Deltasone 10 mg Tablet] 10 mg PO ASDIR PRN #21 tablet PRN Reason: Forms: Smoking Cessation Education, Return to Work Referrals: JOANN ALBERT DO [Primary Care Provider] - Follow up in 3-5 days
[2017-01-30 04:50] LABS: CREATINE KINASE MB < 0.22 ng/mL (<4.55); TROPONIN I < 0.012 ng/mL
[2017-01-30 06:48] VITALS: BP 126/88
[2017-01-30] MEDS ORDERED: PREDNISONE 20 MG TABLET PO ONE (07:07)
--- NOTE | 2017-01-30 21:42 | EKG REPORT ---
SEVERITY:- NORMAL ECG - SINUS RHYTHM : Confirmed by: Dang Awan 30-Jan-2017 21:41:13
== END 2017-01-30 07:19 | disposition home or self-care (01) ==
LOC: ER 01:38
DX: R07.89 Other chest pain (principal); R07.9 Chest pain, unspecified; F17.200 Nicotine dependence, unspecified, uncomplicated
CPT/HCPCS: 93005; 99285; 36415; 82553; 82550; 85025; 80053; 84484; 71010; 93010; J7512

== ENCOUNTER 2017-02-01 20:20 | Emergency (ER) | payer OTHER ==
[2017-02-01] MEDS ORDERED: ASPIRIN 81 MG TABLET, CHEWABLE PO ONE (23:48)
[2017-02-02 00:03] LABS: ALANINE AMINOTRANSFERASE 33 U/L (21-72); ALBUMIN 4.7 g/dL (3.5-5.0); ALKALINE PHOSPHATASE 78 U/L (38-126); ANION GAP 13 (5-19); ASPARTATE AMINO TRANSFERASE 28 U/L (17-59); BILIRUBIN,DIRECT 0.4 mg/dL (0.0-0.4); BILIRUBIN,TOTAL 0.5 mg/dL (0.2-1.3); BLOOD UREA NITROGEN 16 mg/dL (7-20); CALCIUM 9.9 mg/dL (8.4-10.2); CARBON DIOXIDE 26 mmol/L (22-30); CHLORIDE 105 mmol/L (98-107); CREATINE KINASE 37 U/L (55-170); CREATININE RESULT 0.84 mg/dL (0.52-1.25); GLUCOSE 85 mg/dL (75-110); POTASSIUM 4.3 mmol/L (3.6-5.0); SODIUM 143.5 mmol/L (137-145); TOTAL PROTEIN 7.8 g/dL (6.3-8.2)
[2017-02-02 00:14] LABS: CREATINE KINASE MB 0.47 ng/mL (<4.55)
[2017-02-02 00:17] LABS: ABSOLUTE EOSINOPHILS # (AUTO) 0.1 10^3/uL (0.0-0.6); ABSOLUTE MONOCYTES (AUTO) 0.9 10^3/uL (0.1-1.4); ABSOLUTE NEUT (AUTO) 7.5 10^3/uL (1.7-8.2); BASOPHILS % (AUTO) 0.4 % (0-2); EOSINOPHILS % (AUTO) 0.6 % (0-6); HEMATOCRIT 47.8 % (37.9-51.0); HGB HCT DIFFERENCE 3.2; LYMPHOCYTES % (AUTO) 25.9 % (13-45); MEAN CORPUSCULAR HEMOGLOBIN 33.4 pg (27.0-33.4); MEAN CORPUSCULAR HGB CONC 35.6 g/dL (32.0-36.0); MEAN CORPUSCULAR VOLUME 94 fl (80-97); MONOCYTES % (AUTO) 8.1 % (3-13); RED CELL DISTRIBUTION WIDTH 13.4 % (11.5-14.0); TROPONIN I < 0.012 ng/mL; WHITE BLOOD COUNT 11.6 10^3/uL (4.0-10.5)
--- NOTE | 2017-02-02 01:47 | ER Document Report ---
ED General - General Chief Complaint: Chest Pain Stated Complaint: FLUTTERS IN CHEST Time Seen by Provider: 02/02/17 01:06 Mode of Arrival: Ambulatory Information source: Patient Notes: 41-year-old male presents with complaints of palpitations of one-week duration. Patient denies any chest pain shortness breath difficulty breathing. He does note that he was seen here recently for chest pain which has since resolved after he took the Pepcid and prednisone as prescribed to him. Patient notes putting pressure on his chest seems to resolve the palpitations Patient notes ambulating and running did not cause any worsening symptoms Patient has had a recent normal stress test TRAVEL OUTSIDE OF THE [place] IN LAST 30 DAYS: No - HPI Onset: Last week Onset/Duration: Persistent Quality of pain: No pain Severity: Mild Pain Level: Denies Associated symptoms: Other Exacerbated by: Denies Relieved by: Other Similar symptoms previously: No Recently seen / treated by doctor: No - Related Data Allergies/Adverse Reactions: No Known Allergies Allergy (Verified 10/31/16 11:31) Past Medical History - Social History Smoking Status: Never Smoker Cigarette use (# per day): No Chew tobacco use (# tins/day): No Smoking Education Provided: No Family History: Reviewed & Not Pertinent, COPD, DM Patient has suicidal ideation: No Patient has homicidal ideation: No - Past Medical History Cardiac Medical History: Reports: Hx Hypercholesterolemia Renal/ Medical History: Denies: Hx Peritoneal Dialysis Musculoskeltal Medical History: Reports Hx Musculoskeletal Deformity, Reports Hx Musculoskeletal Trauma Psychiatric Medical History: Reports: Hx Anxiety Past Surgical History: Reports: Hx Abdominal Surgery - hernia repair, Hx Herniorrhaphy, Hx Myringotomy - Immunizations Hx Diphtheria, Pertussis, Tetanus Vaccination: Yes Review of Systems - Review of Systems Notes: REVIEW OF SYSTEMS: CONSTITUTIONAL : Denies fever, chills, or sweats. Denies recent illness. EENT: Denies eye, ear, throat, or mouth pain or symptoms. Denies nasal or sinus congestion or discharge. Denies throat, tongue, or mouth swelling or difficulty swallowing. CARDIOVASCULAR: Denies chest pain. Admits palpitations or racing or irregular heart beat. Denies ankle edema. RESPIRATORY: Denies cough, cold, or chest congestion. Denies shortness of breath, difficulty breathing, or wheezing. GASTROINTESTINAL: Denies abdominal pain or distention. Denies nausea, vomiting , or diarrhea. Denies blood in vomitus, stools, or per rectum. Denies black, tarry stools. Denies constipation. GENITOURINARY: Denies difficulty urinating, painful urination, burning, frequency, blood in urine, or discharge. MUSCULOSKELETAL: Denies back or neck pain or stiffness. Denies joint pain or swelling. SKIN: Denies rash, lesions or sores. HEMATOLOGIC : Denies easy bruising or bleeding. LYMPHATIC: Denies swollen, enlarged glands. NEUROLOGICAL: Denies confusion or altered mental status. Denies passing out or loss of consciousness. Denies dizziness or lightheadedness. Denies headache. Denies weakness or paralysis or loss of use of either side. Denies problems with gait or speech. Denies sensory loss, numbness, or tingling. Denies seizures. PSYCHIATRIC: Denies anxiety or stress. Denies depression, suicidal ideation, or homicidal ideation. ALL OTHER SYSTEMS REVIEWED AND NEGATIVE. Dictation was performed using [employer] voice recognition software PHYSICAL EXAMINATION: GENERAL: Well-appearing, well-nourished and in no acute distress. HEAD: Atraumatic, normocephalic. EYES: Pupils equal round and reactive to light, extraocular movements intact, sclera anicteric, conjunctiva are normal. ENT: Nares patent, oropharynx clear without exudates. Moist mucous membranes. NECK: Normal range of motion, supple without lymphadenopathy LUNGS: Breath sounds clear to auscultation bilaterally and equal. No wheezes rales or rhonchi. HEART: Regular rate and rhythm without murmurs ABDOMEN: Soft, nontender, nondistended abdomen. No guarding, no rebound. No masses appreciated. Musculoskeletal: Normal range of motion, no pitting or edema. No cyanosis. NEUROLOGICAL: Cranial nerves grossly intact. Normal speech, normal gait. Normal sensory, motor exams PSYCH: Normal mood, normal affect. SKIN: Warm, Dry, normal turgor, no rashes or lesions noted. Physical Exam - Vital signs Vitals: Temp Pulse Resp BP Pulse Ox 98.1 F 68 18 138/93 H 99 02/01/17 21:35 02/01/17 21:35 02/01/17 21:35 02/01/17 21:35 02/01/17 21:35 Course - Re-evaluation Re-evalutation: 02/02/17 02:20 Patient's lab work workup was quite benign, he was placed on monitor and watched continuously in the room for approximately 5 minutes and no palpitations were noted but patient continuously states that he feels like something is tickling his heart and that is racing when in fact the heart rates between 58-61 Since workup was negative I will have him follow-up with cardiology for further evaluation and care After performing a Medical Screening Examination, I estimate there is LOW risk for RUPTURED ESOPHAGUS, PNEUMOTHORAX, PULMONARY EMBOLISM, ACUTE CORONARY SYNDROME, OR THORACIC AORTIC DISSECTION, thus I consider the discharge disposition reasonable. I have reevaluated this patient multiple times and no significant life threatening changes are noted. The patient and I have discussed the diagnosis and risks, and we agree with discharging home with close follow-up. We also discussed returning to the Emergency Department immediately if new or worsening symptoms occur. We have discussed the symptoms which are most concerning (e.g., bloody sputum, worsening pain or shortness of breath) that necessitate immediate return. - Vital Signs Vital signs: Temp Pulse Resp BP Pulse Ox 98.1 F 68 18 138/93 H 99 02/01/17 21:35 02/01/17 21:35 02/01/17 21:35 02/01/17 21:35 02/01/17 21:35 - Laboratory Result Diagrams: 02/01/17 22:30 02/01/17 22:30 Laboratory results interpreted by me: 02/01/17 02/01/17 22:30 22:30 WBC 11.6 H Creatine Kinase 37 L - Diagnostic Test Radiology reviewed: Image reviewed, Reports reviewed - EKG Interpretation by Me EKG shows normal: Sinus rhythm, [place], Intervals, QRS Complexes Discharge - Discharge Clinical Impression: Palpitations Condition: Stable Disposition: HOME, SELF-CARE Instructions: Palpitations (Irregular or Rapid Heartrate) ([facility]) Additional Instructions: Please follow-up with your java jsf developer for evaluation of your palpitations. Return immediately if there is any signs of chest pain or any other concerns at all
[2017-02-02 03:17] VITALS: BP 139/94
--- NOTE | 2017-02-02 09:08 | EKG REPORT ---
SEVERITY:- ABNORMAL ECG - SINUS RHYTHM PROBABLE LEFT VENTRICULAR HYPERTROPHY : Confirmed by: Dang Awan 02-Feb-2017 09:07:55
== END 2017-02-02 03:27 | disposition home or self-care (01) ==
LOC: ER 20:20
DX: R00.2 Palpitations (principal); R07.9 Chest pain, unspecified; E78.00 Pure hypercholesterolemia, unspecified
CPT/HCPCS: 36415; 80053; 82550; 82553; 84484; 85025; 93005; 93010; 99285

== ENCOUNTER 2017-02-21 09:00 | Emergency (ER) | payer OTHER ==
[2017-02-21 09:05] VITALS: BP 145/87
--- NOTE | 2017-02-21 09:27 | ER Document Report ---
HPI - HPI Pain Level: 2 Notes: Patient is a 41-year-old male who presents the ED complaining of mild redness and swelling to the distal right posterior digit 1 day. Patient states that he did bump it on something at work which did start making it throb, but the swelling and redness was already there prior. Patient has not noticed any obvious abscess or purulent discharge or streaks. Patient states he has a medical history significant for hypertension. He denies any history of MRSA. He denies any drug allergies. Patient states he is still able to use his finger without any difficulties otherwise. Denies any headache, fever, URI, sore throat, chest pain, palpitations, syncope, cough, shortness of breath, wheeze, dyspnea, abdominal pain, nausea/vomiting/diarrhea, numbness/tingling, muscle paralysis/weakness. - ROS Notes: REVIEW OF SYSTEMS: CONSTITUTIONAL : Denies fever, chills, or sweats. Denies recent illness. EENT: Denies eye, ear, throat, or mouth pain or symptoms. Denies nasal or sinus congestion or discharge. Denies throat, tongue, or mouth swelling or difficulty swallowing. CARDIOVASCULAR: Denies chest pain. Denies palpitations or racing or irregular heart beat. RESPIRATORY: Denies cough, cold, or chest congestion. Denies shortness of breath, difficulty breathing, or wheezing. GASTROINTESTINAL: Denies abdominal pain or distention. Denies nausea, vomiting , or diarrhea. GENITOURINARY: Denies difficulty urinating, painful urination, burning, frequency, blood in urine, or discharge. MUSCULOSKELETAL: see hpi SKIN: see hpi NEUROLOGICAL: Denies confusion or altered mental status. Denies passing out or loss of consciousness. Denies dizziness or lightheadedness. Denies headache. Denies weakness or paralysis or loss of use of either side. Denies problems with gait or speech. Denies sensory loss, numbness, or tingling. ALL OTHER SYSTEMS REVIEWED AND NEGATIVE. Dictation was performed using [employer] voice recognition software - DERM Skin Color: Normal Past Medical History - Social History Smoking Status: Never Smoker Family History: Reviewed & Not Pertinent, COPD, DM Patient has suicidal ideation: No Patient has homicidal ideation: No - Past Medical History Cardiac Medical History: Reports: Hx Hypercholesterolemia Renal/ Medical History: Denies: Hx Peritoneal Dialysis Musculoskeltal Medical History: Reports Hx Musculoskeletal Deformity, Reports Hx Musculoskeletal Trauma Psychiatric Medical History: Reports: Hx Anxiety Past Surgical History: Reports: Hx Abdominal Surgery - hernia repair, Hx Herniorrhaphy, Hx Myringotomy - Immunizations Hx Diphtheria, Pertussis, Tetanus Vaccination: Yes Vertical Provider Document - CONSTITUTIONAL Agree With Documented VS: Yes Notes: PHYSICAL EXAMINATION: GENERAL: Well-appearing, well-nourished and in no acute distress. LUNGS: Breath sounds clear to auscultation bilaterally and equal. No wheezes rales or rhonchi. HEART: Regular rate and rhythm without murmurs, rubs, gallops. Musculoskeletal: Rt hand/4th digit: FROM to passive/active. Strength 5+/5. + erythema, mild swelling w/o abscess/streaks/discharge near the base of the nail. Extremities: No cyanosis, clubbing, or edema b/l. Peripheral pulses 2+. Capillary refill less than 3 seconds. NEUROLOGICAL: Normal speech, normal gait. Normal sensory, motor exams PSYCH: Normal mood, normal affect. SKIN: see MSK exam. Warm, Dry, normal turgor, no rashes or lesions noted. - INFECTION CONTROL TRAVEL OUTSIDE OF THE [place] IN LAST 30 DAYS: No - RESPIRATORY O2 Sat by Pulse Oximetry: 99 Course - Re-evaluation Re-evalutation: 02/21/17 09:30 Patient is an afebrile, well-hydrated, 41-year-old male who presents the ED with a cellulitis to the distal posterior fourth digit, possible early paronychia without any obvious abscess or incision and drainage warranted at this time. Vitals are stable. PE is otherwise unremarkable for any neurovascular compromise, obvious fx/dislocation, tenosynovitis, septic joint, sepsis, or other systemic emergent condition at this time. Conservative measures for symptoms. I will send him home with a prescription for Bactrim to take as directed. Recheck with your PCM in 3-5 days. Consider consult orthopedics and physical therapy. Return to the ED with any worsening/ concerning symptoms otherwise as reviewed in discharge. Patient is in agreement. - Vital Signs Vital signs: Temp Pulse Resp BP Pulse Ox 97.4 F 78 18 145/87 H 99 02/21/17 09:04 02/21/17 09:04 02/21/17 09:04 02/21/17 09:04 02/21/17 09:04 Discharge - Discharge Clinical Impression: Cellulitis of finger of right hand Condition: Stable Disposition: HOME, SELF-CARE Instructions: Cellulitis ([facility]), Epsom Salt Soaks ([facility]) Additional Instructions: Tylenol/ibuprofen as needed Light stretches daily Strength exercises as able Moist heat compresses Take meds as directed F/u with your PCP in 3-5 days for a recheck Consider consult(s) with Orthopedics/physical therapy for ongoing/worsening symptoms Return to the ED with any worsening symptoms and/or development of fever, headache, chest pain, palpitations, syncope, shortness of breath, trouble breathing, abdominal pain, n/v/d, muscle weakness/paralysis, numbness/tingling, swelling, redness, or other worsening symptoms that are concerning to you. Prescriptions: Sulfamethoxazole/Trimethoprim [Bactrim Ds Tablet] 1 each PO BID #20 tablet Forms: Elevated Blood Pressure, Return to Work Referrals: [facility] [Provider Group] - Follow up as needed
== END 2017-02-21 09:50 | disposition home or self-care (01) ==
LOC: ER 09:00
DX: L03.011 Cellulitis of right finger (principal); I10 Essential (primary) hypertension
CPT/HCPCS: 99283

== ENCOUNTER 2017-02-22 05:43 | Emergency (ER) | payer OTHER ==
[2017-02-22] MEDS ORDERED: NORMAL SALINE 1000 ML 1,000 ML IV ONE (06:21)
[2017-02-22 06:43] LABS: ABSOLUTE EOSINOPHILS # (AUTO) 0.2 10^3/uL (0.0-0.6); ABSOLUTE MONOCYTES (AUTO) 0.6 10^3/uL (0.1-1.4); ABSOLUTE NEUT (AUTO) 4.8 10^3/uL (1.7-8.2); BASOPHILS % (AUTO) 0.7 % (0-2); EOSINOPHILS % (AUTO) 3.1 % (0-6); HEMATOCRIT 47.7 % (37.9-51.0); HGB HCT DIFFERENCE 3.3; LYMPHOCYTES % (AUTO) 15.4 % (13-45); MEAN CORPUSCULAR HEMOGLOBIN 33.1 pg (27.0-33.4); MEAN CORPUSCULAR HGB CONC 35.7 g/dL (32.0-36.0); MEAN CORPUSCULAR VOLUME 93 fl (80-97); MONOCYTES % (AUTO) 8.9 % (3-13); RED BLOOD COUNT 5.14 10^6/uL (4.35-5.55); RED CELL DISTRIBUTION WIDTH 13.2 % (11.5-14.0); SEGMENTED NEUTROPHILS % (AUTO) 71.9 % (42-78); WHITE BLOOD COUNT 6.7 10^3/uL (4.0-10.5)
--- NOTE | 2017-02-22 06:56 | ER Document Report ---
ED GI/ - General Mode of Arrival: Ambulatory Information source: Patient TRAVEL OUTSIDE OF THE [place] IN LAST 30 DAYS: No <MAYA LUI - Last Filed: 02/22/17 12:54> <CRISTHIAN ROE - Last Filed: 02/22/17 13:57> - General Chief Complaint: Nausea/Vomiting/Diarrhea Stated Complaint: NAUSEA Time Seen by Provider: 02/22/17 06:20 Notes: Patient is a 41 year old male that presents to the emergency department today with complaints of nausea and vomiting. Patient states he was started a few days ago on Bactrim for a skin infection on his right ring finger and he isn't sure if his symptoms today are from the abx. Patient states he woke up for work at 0450 and was eating breakfast and he vomited twice. He took a shower and had multiple episodes of diarrhea after. Patient denies any focal abdominal pain. ( MAYA LUI) - Related Data Allergies/Adverse Reactions: No Known Allergies Allergy (Verified 02/21/17 09:04) Past Medical History - General Information source: Patient - Social History Smoking Status: Current Some Day Smoker Cigarette use (# per day): Yes - "quit yesterday" Chew tobacco use (# tins/day): No Frequency of alcohol use: None Drug Abuse: None Lives with: Family Family History: Reviewed & Not Pertinent, COPD, DM Patient has suicidal ideation: No Patient has homicidal ideation: No - Past Medical History Cardiac Medical History: Reports: Hx Hypercholesterolemia, Hx Hypertension Pulmonary Medical History: Reports: Hx COPD Musculoskeltal Medical History: Reports Hx Musculoskeletal Deformity, Reports Hx Musculoskeletal Trauma Psychiatric Medical History: Reports: Hx Anxiety Past Surgical History: Reports: Hx Abdominal Surgery - hernia repair, Hx Herniorrhaphy, Hx Myringotomy - Immunizations Hx Diphtheria, Pertussis, Tetanus Vaccination: Yes <MAYA LUI - Last Filed: 02/22/17 12:54> Review of Systems - Review of Systems Constitutional: No symptoms reported EENT: No symptoms reported Cardiovascular: No symptoms reported Respiratory: No symptoms reported Gastrointestinal: See HPI, Nausea, Vomiting. denies: Abdominal pain Genitourinary: No symptoms reported Male Genitourinary: No symptoms reported Musculoskeletal: No symptoms reported Skin: No symptoms reported Hematologic/Lymphatic: No symptoms reported Neurological/Psychological: No symptoms reported -: Yes All other systems reviewed and negative <MAYA LUI - Last Filed: 02/22/17 12:54> Physical Exam <SANIAMAYA MAY - Last Filed: 02/22/17 12:54> <CRISTHIAN ROE - Last Filed: 02/22/17 13:57> - Vital signs Vitals: Temp Pulse Resp BP Pulse Ox 97.7 F 91 18 150/91 H 99 02/22/17 05:52 02/22/17 05:52 02/22/17 05:52 02/22/17 05:52 02/22/17 05:52 - Notes Notes: Physical Exam: General: Alert, appears well. HEENT: Normocephalic. Atraumatic. PERRL. Extraocular movements intact. Oropharynx clear. Dry mucous membranes. Neck: Supple. Non-tender. Respiratory: No respiratory distress. Clear and equal breath sounds bilaterally. Cardiovascular: Regular rate and rhythm. Abdominal: Normal Inspection. Non-tender. No distension. Normal Bowel Sounds. Back: Non-tender. No deformity or step off. Extremities: Moves all four extremities. Upper extremities: Normal inspection. Normal ROM. Lower extremities: Normal inspection. No edema. Normal ROM. Neurological: Normal cognition. AAOx4. Normal speech. Psychological: Normal affect. Normal Mood. Skin: Warm. Dry. Normal color. (MAYA LUI) Course - Laboratory Result Diagrams: 02/22/17 06:32 02/22/17 06:32 <MAYA LUI - Last Filed: 02/22/17 12:54> - Laboratory Result Diagrams: 02/22/17 06:32 02/22/17 06:32 <CRISTHIAN ROE - Last Filed: 02/22/17 13:57> - Re-evaluation Re-evalutation: 02/22/17 Patient is a 41-year-old male who comes in with vomiting and diarrhea. Patient states that it is slowing down but he still feels nauseated. Patient was fluid resuscitated and given nausea medication. He is currently feeling much better. Patient states that he vomited his Bactrim this morning which she is taking for a paronychia. Patient was given Bactrim here to make sure he gets tolerated which she can. Finger is showing very minimal erythema at this time the patient states that it is improving. Given Zofran for discharge. Follow- up with PMD. Return if any worsening or concerning symptoms. Patient understands and agrees with plan. (CRISTHIAN ROE) - Vital Signs Vital signs: Temp Pulse Resp BP Pulse Ox 97.9 F 94 18 149/88 H 95 02/22/17 09:08 02/22/17 09:08 02/22/17 09:08 02/22/17 09:08 02/22/17 09:08 - Laboratory Laboratory results interpreted by me: 02/22/17 02/22/17 06:32 06:37 Sodium 145.5 H Chloride 109 H Carbon Dioxide 21 L Urine Urobilinogen 2.0 H Discharge <MAYA LUI - Last Filed: 02/22/17 12:54> <CRISTHIAN ROE - Last Filed: 02/22/17 13:57> - Discharge Clinical Impression: Vomiting Qualifiers: Vomiting type: unspecified Vomiting Intractability: non-intractable Nausea presence: with nausea Qualified Code(s): R11.2 - Nausea with vomiting, unspecified Diarrhea Qualifiers: Diarrhea type: unspecified type Qualified Code(s): R19.7 - Diarrhea, unspecified Condition: Stable Disposition: HOME, SELF-CARE Instructions: Diarrhea, Nonspecific ([facility]), Vomiting ([facility]) Forms: Return to Work Scribe Attestation: 02/22/17 13:57 I personally performed the services described in the documentation, reviewed and edited the documentation which was dictated to the scribe in my presence, and it accurately records my words and actions. (CRISTHIAN ROE)
[2017-02-22] MEDS ORDERED: ONDANSETRON HCL INJ/PF 4 MG/2 ML SDV IV ONE (07:00)
[2017-02-22 07:14] LABS: ALANINE AMINOTRANSFERASE 29 U/L (21-72); ALBUMIN 4.6 g/dL (3.5-5.0); ALKALINE PHOSPHATASE 114 U/L (38-126); ANION GAP 16 (5-19); ASPARTATE AMINO TRANSFERASE 30 U/L (17-59); BILIRUBIN,DIRECT 0.4 mg/dL (0.0-0.4); BILIRUBIN,TOTAL 0.5 mg/dL (0.2-1.3); BLOOD UREA NITROGEN 18 mg/dL (7-20); CALCIUM 9.9 mg/dL (8.4-10.2); CARBON DIOXIDE 21 mmol/L (22-30); CHLORIDE 109 mmol/L (98-107); CREATININE RESULT 1.15 mg/dL (0.52-1.25); GLUCOSE 106 mg/dL (75-110); LIPASE 142.8 U/L (23-300); POTASSIUM 4.5 mmol/L (3.6-5.0); SODIUM 145.5 mmol/L (137-145); TOTAL PROTEIN 7.4 g/dL (6.3-8.2)
[2017-02-22 07:17] LABS: APPEARANCE,URINE CLEAR; BILIRUBIN,URINE NEGATIVE (NEGATIVE); GLUCOSE, URINE NEGATIVE (NEGATIVE); KETONES,URINE NEGATIVE (NEGATIVE); LEUKOCYTE ESTERASE,URINE NEGATIVE (NEGATIVE); NITRITE,URINE NEGATIVE (NEGATIVE); PROTEIN,URINE NEGATIVE (NEGATIVE); URINE SPECIFIC GRAVITY 1.024
[2017-02-22] MEDS ORDERED: SULFAMETHOXAZOLE/TRIMETHOPRIM 800-160 MG TABLET PO ONE (08:15)
[2017-02-22] MEDS ORDERED: ONDANSETRON ODT 4 MG TAB (6 TAB/DSPK) PO PRN (08:38)
[2017-02-22 09:09] VITALS: BP 149/88
== END 2017-02-22 09:09 | disposition home or self-care (01) ==
LOC: ER 05:43
DX: R11.2 Nausea with vomiting, unspecified (principal); R19.7 Diarrhea, unspecified; F17.210 Nicotine dependence, cigarettes, uncomplicated
CPT/HCPCS: 99284; 96361; 96374; 36415; 83690; 85025; 80053; 81001; J2405; J7030

== ENCOUNTER → 2017-04-20 | Outpatient (CLI) | payer OTHER ==
--- NOTE | 2017-04-20 16:45 | RADIOLOGY REPORT (SQ) ---
EXAM DESCRIPTION: CT CHEST WITHOUT COMPLETED DATE/TIME: 04/20/2017 4:34 pm REASON FOR STUDY: R91.8 OTHER NONSPECIFIC ABNORMAL FINDING OF LUNG FIELD R91.8 OTHER NONSPECIFIC AB NORMAL FINDING OF LUNG FIELD COMPARISON: CT angio chest 10/15/2016 TECHNIQUE: CT scan performed of the chest without intravenous contrast. Images reviewed with lung, soft tissue and bone windows. Reconstructed coronal and sagittal MPR images reviewed. All images st ored on PACS. All CT scanners at this facility use dose modulation, iterative reconstruction, and/or weight based d osing when appropriate to reduce radiation dose to as low as reasonably achievable (ALARA). [facility]: Dose Right [facility]: CareDose [facility]: Dose Right [facility]: Teradose 4D [facility]: Smart NPM RADIATION DOSE: CT Rad equipment meets quality standard of care and radiation dose reduction techniq ues were employed. CTDIvol: 10.8 mGy. DLP: 430 mGy-cm. mGy. LIMITATIONS: No technical limitations. FINDINGS: LUNGS AND PLEURA: Tiny noncalcified 5 to 6 mm granuloma is present in the right middle lob e near the minor fissure. This is unchanged. A tiny 3 mm noncalcified granuloma is present in the right middle lobe on axial image 38 unchanged. A less than 2 mm subpleural density is present on axial image 39, of doubtful clinical significance. Remainder of the lungs are remarkable. No pleural effusions. No pneumothorax. HILAR AND MEDIASTINAL STRUCTURES: No identified masses or abnormal nodes. No obvious aneurysm. HEART AND VASCULAR STRUCTURES: No aneurysm. No pericardial effusion. UPPER ABDOMEN: No significant findings. Limited exam. THYROID AND OTHER SOFT TISSUES: No masses. No adenopathy. BONES: No significant finding. HARDWARE: None in the chest. OTHER: No other significant findings. IMPRESSION: Benign-appearing postinflammatory nodules in the right middle lobe of doubtful clinical significance. Repeat CT chest October 2018 recommended to document stability. TECHNICAL DOCUMENTATION: JOB ID: [id number] Quality ID # [id number]: Final reports with documentation of one or more dose reduction techniques (e.g., Au tomated exposure control, adjustment of the mA and/or kV according to patient size, use of iterative reconstruction technique) 2010 [employer]- All Rights Reserved
== END ==
LOC: RAD 16:52
PROVIDERS: ATTEND Internal Medicine Pulmonary Disease
DX: R91.8 Other nonspecific abnormal finding of lung field (principal)
CPT/HCPCS: 71250

== ENCOUNTER 2017-06-12 12:49 | Emergency (ER) | payer OTHER ==
--- NOTE | 2017-06-12 15:14 | RADIOLOGY REPORT (SQ) ---
EXAM DESCRIPTION: CERV SP 3 VIEW OR LESS COMPLETED DATE/TIME: 06/12/2017 2:50 pm REASON FOR STUDY: fall/pain COMPARISON: 10/13/2016 NUMBER OF VIEWS: Three views. TECHNIQUE: AP, lateral and odontoid radiographic images acquired of the cervical spine. LIMITATIONS: None. FINDINGS: MINERALIZATION: Normal. ALIGNMENT: Anatomic. VERTEBRAE: Vertebral bodies of normal height. DISCS: There is narrowing of the C4-5 disc space HARDWARE: Hardware is present on the left side of the posterior C-spine from C4-C6. SOFT TISSUES: No masses or calcifications. Lung apices clear. OTHER: No other significant finding. IMPRESSION: Stable surgical changes with no acute abnormality. TECHNICAL DOCUMENTATION: JOB ID: [id number] [employer]- All Rights Reserved Reading location - IP/workstation name: [email or web address]
--- NOTE | 2017-06-12 15:31 | ER Document Report ---
ED General - General Chief Complaint: Neck Problem Stated Complaint: NECK PAIN/ RIGHT SHOULDER PAIN/ Time Seen by Provider: 06/12/17 14:41 Mode of Arrival: Ambulatory Information source: Patient Notes: Patient states several days ago he had a fall in which he injured his right arm and neck. He states he has a previous neck surgery with some "hinges" placed in his neck by a neurosurgeon. He states that he has been having some left arm numbness and tingling as well as the left hand. He states he went to an urgent care where x-rays were obtained. He states that he was told by the provider there that she is not a radiologist but did not see anything abnormal. Patient states he tried to get into see orthopedics but could not have an appointment until tomorrow. They told him of these have any problems he should come to the emergency department. His symptoms are moderate. They are intermittent. He states they occur randomly about every 10 minutes. He states they are better when he shakes his hand and get worse when his hand is still. The sensation does not seem to radiate. TRAVEL OUTSIDE OF THE [place] IN LAST 30 DAYS: No - Related Data Allergies/Adverse Reactions: No Known Allergies Allergy (Verified 06/12/17 12:53) Past Medical History - General Information source: Patient - Social History Smoking Status: Current Every Day Smoker Chew tobacco use (# tins/day): No Frequency of alcohol use: None Drug Abuse: None Family History: Reviewed & Not Pertinent, COPD, DM Patient has suicidal ideation: No Patient has homicidal ideation: No - Past Medical History Cardiac Medical History: Reports: Hx Hypercholesterolemia, Hx Hypertension Pulmonary Medical History: Reports: Hx COPD - sleep apnea-doesn't wear machine Renal/ Medical History: Denies: Hx Peritoneal Dialysis Musculoskeltal Medical History: Reports Hx Musculoskeletal Deformity, Reports Hx Musculoskeletal Trauma Psychiatric Medical History: Reports: Hx Anxiety Past Surgical History: Reports: Hx Abdominal Surgery - hernia repair, Hx Herniorrhaphy, Hx Myringotomy, Hx Orthopedic Surgery - 06/2015, neck hinges - Immunizations Hx Diphtheria, Pertussis, Tetanus Vaccination: Yes Review of Systems - Review of Systems Constitutional: denies: Chills, Fever Cardiovascular: denies: Chest pain, Palpitations Respiratory: denies: Cough, Short of breath -: Yes All other systems reviewed and negative Physical Exam - Vital signs Vitals: Temp Pulse Resp BP Pulse Ox 98.7 F 73 16 141/91 H 98 06/12/17 13:08 06/12/17 13:08 06/12/17 13:08 06/12/17 13:08 06/12/17 13:08 Interpretation: Normal - General General appearance: Appears well, Alert - HEENT Head: Normocephalic, Atraumatic Eyes: Normal Pupils: PERRL Neck: Other - Patient C-spine is nontender to palpation without step-off or deformity - Respiratory Respiratory status: No respiratory distress Chest status: Nontender Breath sounds: Normal Chest palpation: Normal - Cardiovascular Rhythm: Regular Heart sounds: Normal auscultation Murmur: No - Abdominal Inspection: Normal Distension: No distension Bowel sounds: Normal Tenderness: Nontender Organomegaly: No organomegaly - Back Back: Normal, Nontender - Extremities General upper extremity: Normal inspection, Nontender, Normal color, Normal ROM , Normal temperature General lower extremity: Normal inspection, Nontender, Normal color, Normal ROM , Normal temperature, Normal weight bearing, Other - No apparent focal weakness could be ascertained in the left forearm hand or wrist. There is no significant color or temperature change about the hand or wrist on the left. Patient has normal capillary refill in all fingers on the left. He has a 2+ radial pulse on the left.. No: Brisa's sign - Neurological Neuro grossly intact: Yes Cognition: Normal Orientation: AAOx4 Murtaza Coma Scale Eye Opening: Spontaneous [place] Coma Scale Verbal: Oriented Murtaza Coma Scale Motor: Obeys Commands [place] Coma Scale Total: 15 Speech: Normal Motor strength normal: LUE, RUE, LLE, RLE Sensory: Normal - Psychological Associated symptoms: Normal affect, Normal mood - Skin Skin Temperature: Warm Skin Moisture: Dry Skin Color: Normal Course - Vital Signs Vital signs: Temp Pulse Resp BP Pulse Ox 98.7 F 73 16 141/91 H 98 06/12/17 13:08 06/12/17 13:08 06/12/17 13:08 06/12/17 13:08 06/12/17 13:08 - Diagnostic Test Radiology reviewed: Image reviewed, Reports reviewed - X-ray show no evidence of acute abnormality Discharge - Discharge Clinical Impression: Left hand paresthesia Condition: Stable Disposition: HOME, SELF-CARE Instructions: Numbness or Paresthesia ([facility]) Additional Instructions: Please follow-up with neurosurgery tomorrow as scheduled Prescriptions: Prednisone [Deltasone 20 mg Tablet] 3 tab PO DAILY 5 Days tablet Forms: Return to Work
[2017-06-12 15:51] VITALS: BP 145/90
== END 2017-06-12 15:50 | disposition home or self-care (01) ==
LOC: ER 12:49
DX: R20.2 Paresthesia of skin (principal); R20.0 Anesthesia of skin; I10 Essential (primary) hypertension; J44.9 Chronic obstructive pulmonary disease, unspecified; F17.200 Nicotine dependence, unspecified, uncomplicated
CPT/HCPCS: 72040; 99283

== ENCOUNTER → 2017-06-21 | Outpatient (CLI) | payer OTHER ==
--- NOTE | 2017-06-21 10:44 | RADIOLOGY REPORT (SQ) ---
EXAM DESCRIPTION: MRI CERVICAL SPINE COMBO COMPLETED DATE/TIME: 06/21/2017 10:03 am REASON FOR STUDY: CERVICALGIA M54.2 CERVICALGIA COMPARISON: Cervical spine plain films 06/12/2017, 10/13/2016 CT cervical spine 08/26/2014 TECHNIQUE: Sagittal and Axial imaging includes T1, T2, STIR and gradient echo sequences. T1 post rodrick olinium sequences. CONTRAST TYPE AND DOSE: 15 mL Multihance. RENAL FUNCTION: GFR > 60. LIMITATIONS: None. FINDINGS: ALIGNMENT: Normal. VERTEBRAE: Intact. BONE MARROW: Normal. No marrow replacement or reactive changes. DISCS: Decreased T2 weighted intervertebral disc signal from C2-3 through C6-7. No significant disc space loss of height. 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 CORD AND BASE OF BRAIN: Normal in size and signal intensity. SOFT TISSUES: No soft tissue masses. C1-C2: No significant spinal stenosis. C2-C3: No significant spinal stenosis or exit foraminal stenosis. C3-C4: Minimal posterior disc bulging, mild bilateral facet hypertrophy. No significant central or f oraminal encroachment. C4-C5: Post left laminectomy with left lamina microplate and screws. No central stenosis. High-grad e right, moderate left foraminal narrowing. C5-C6: Post left laminectomy with left lamina microplate and screws. No central stenosis. Mild righ t, moderate to high-grade left foraminal narrowing. C6-C7: Post left laminectomy with left lamina microplate and screws. No central stenosis. Mild righ t, moderate left foraminal narrowing. C7-T1: No significant spinal stenosis or exit foraminal stenosis. UPPER THORACIC: Incompletely imaged. No significant spinal stenosis or exit foraminal stenosis. ENHANCEMENT: No abnormal cervical cord, cervical nerve root, or bony enhancement. OTHER: No other significant finding. IMPRESSION: Multilevel foraminal narrowing from facet arthropathy as above. COMMENT: None. TECHNICAL DOCUMENTATION: JOB ID: [id number] [employer]- All Rights Reserved Reading location - IP/workstation name: [email or web address]
== END ==
LOC: RAD 08:51
PROVIDERS: ATTEND Family Medicine
DX: M54.2 Cervicalgia (principal); M12.88 Other specific arthropathies, not elsewhere classified, other specified site
CPT/HCPCS: 82565; 72156; A9577

== ENCOUNTER → 2017-07-08 | Outpatient (CLI) | payer OTHER | LOC: RAD 07:45 | PROVIDERS: ATTEND Family Medicine | DX: D49.2 Neoplasm of unspecified behavior of bone, soft tissue, and skin (principal) | CPT/HCPCS: 73220; A9576 ==

== ENCOUNTER 2017-10-29 21:14 | Emergency (ER) | payer OTHER ==
[2017-10-29 21:21] VITALS: BP 135/86
[2017-10-29] MEDS ORDERED: PREGABALIN 100 MG CAPSULE PO ONE (22:19)
--- NOTE | 2017-10-29 22:28 | ER Document Report ---
HPI - HPI Patient complains to provider of: Left hand pain, hand numbness Pain Level: 3 Context: Patient is a 42-year-old male comes emergency department for chief complaint of pain and numbness to his left hand. Numbness and pain are intermittent, he states he occasionally drops items. Patient has had this ongoing for months, he originally had a C4 through C6 repair in 2014, he had a fall injury in May and since that time he has had intermittently but worsening symptoms. He was seen by primary, started on Lyrica but ran out, he was supposed to have a follow-up and based guarded on 100 mg of Lyrica twice a day along with initial starting dose of Cymbalta, he has a close follow-up for this. He states that he needed to be seen because of work and he needed work release, he is to be seen tomorrow which he did not realize until he denies reinjury, numbness continues to be intermittent, denies any other complaints. Past Medical History - General Information source: Patient - Social History Smoking Status: Never Smoker Drug Abuse: None Lives with: Family Family History: Reviewed & Not Pertinent, COPD, DM - Past Medical History Cardiac Medical History: Reports: Hx Hypercholesterolemia, Hx Hypertension Pulmonary Medical History: Reports: Hx COPD - sleep apnea-doesn't wear machine Renal/ Medical History: Denies: Hx Peritoneal Dialysis Musculoskeletal Medical History: Reports Hx Musculoskeletal Deformity, Reports Hx Musculoskeletal Trauma Psychiatric Medical History: Reports: Hx Anxiety Past Surgical History: Reports: Hx Abdominal Surgery - hernia repair, Hx Herniorrhaphy, Hx Myringotomy, Hx Orthopedic Surgery - 06/2015, neck hinges - Immunizations Hx Diphtheria, Pertussis, Tetanus Vaccination: Yes Vertical Provider Document - CONSTITUTIONAL General Appearance: WD/WN, No Apparent Distress - INFECTION CONTROL TRAVEL OUTSIDE OF THE [place] IN LAST 30 DAYS: No - HEENT HEENT: Atraumatic, Normocephalic - NECK Neck: Normal Inspection - RESPIRATORY Respiratory: Breath Sounds Normal, No Respiratory Distress - CARDIOVASCULAR Cardiovascular: Regular Rate, Regular Rhythm - GI/ABDOMEN Gastrointestinal: Abdomen Soft, Abdomen Non-Tender - BACK Back: Normal Inspection - Non-tender back generally on palpation. No midline tenderness, no saddle anesthesia, no signs of trauma. Normal upper and lower extremity range of motion, normal strength, normal distal neurovascular exam. 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 Normal arm strength. Normal upper extremity examination otherwise. - NEURO Level of Consciousness: Awake, Alert, Appropriate - DERM Integumentary: Warm, Dry, No Rash Course - Re-evaluation Re-evalutation: Patient on patient's reported symptoms, intermittent symptoms, and chronic worsening symptoms I have low suspicion of acute CVA. I do not suspect WI based on his evaluation and symptoms either. Appears to be ongoing paresthesias secondary to his cervical abnormalities. Patient reporting medications that he needs, he was provided with these. Patient was surprised to find out that his follow-up was tomorrow, he will follow-up then, he will discuss repeat MRI at that time. MRI at this time does not seem indicated emergently because of no concerning deficits that have developed compared to prior. Patient was provided with a copy of his old MRI CD on request. No fever , no other concerning abnormalities. Discharged with return precautions. Patient states understanding and agreement. - Vital Signs Vital signs: Temp Pulse Resp BP Pulse Ox 98.5 F 102 H 18 135/86 H 96 10/29/17 21:20 10/29/17 21:20 10/29/17 21:20 10/29/17 21:20 10/29/17 21:20 Discharge - Discharge Clinical Impression: Numbness of left hand Condition: Stable Disposition: HOME, SELF-CARE Additional Instructions: You have been started on higher dose Lyrica and Cymbalta for your impingement pain. You have been provided with a copy of your MRI in June, because of your worsening symptoms I recommend close follow-up and possibly another MRI. Return to the emergency department for any concerning or worsening symptoms including severe headache, new numbness, fever, or any other concerning symptoms. Prescriptions: Duloxetine HCl [Cymbalta] 60 mg PO DAILY #30 capsule. Pregabalin [Lyrica 100 Mg Capsule] 100 mg PO TID #30 capsule Forms: Return to Work
== END 2017-10-29 22:35 | disposition home or self-care (01) ==
LOC: ER 21:14
DX: R20.0 Anesthesia of skin (principal); M79.642 Pain in left hand; I10 Essential (primary) hypertension; J44.9 Chronic obstructive pulmonary disease, unspecified; Z87.81 Personal history of (healed) traumatic fracture; Z98.890 Other specified postprocedural states; Z79.899 Other long term (current) drug therapy
CPT/HCPCS: 99283

== ENCOUNTER 2018-01-23 04:38 | Emergency (ER) | payer OTHER ==
[2018-01-23 04:53] VITALS: BP 133/84
[2018-01-23] MEDS ORDERED: CIPROFLOXACIN HCL 0.3% OPH SOLN 2.5 ML OU ONE (06:15)
--- NOTE | 2018-01-23 06:17 | ER Document Report ---
ED General - General Chief Complaint: Drainage from Eye Stated Complaint: BLURRY VISION Time Seen by Provider: 01/23/18 06:03 Notes: Patient is a 42-year-old male that presents to the emergency department for chief complaint of eye redness. Patient states that he thought he might of had a stye last week, and was applying warm compresses, and that seemed to get better, but he woke up this morning, he had crusty drainage in his right eye, and then did seem to move over to his left eye. Denies having any pain in his eyes. Just some crusting and drainage. He had some mild blurry vision in his right eye, he usually wears reading glasses, but does not wear contacts. Denies any recent fevers, chills, night sweats, runny nose, sore throat or cough. Denies having any seasonal allergies that he is aware of. Past Medical History: Denies chronic medical conditions Past Surgical History: Neck surgery Social History: Admits to smoking cigarettes daily, and occasional alcohol use, denies illicit drug use Family History: Reviewed and noncontributory for presenting illness Allergies: Reviewed, see documented allergy list. REVIEW OF SYSTEMS: Unless otherwise stated in this report the patient's positive and negative responses for review of systems for constitutional, eyes, ENT, cardiovascular, respiratory, gastrointestinal, neurological, genitourinary, musculoskeletal, and integumentary systems and related systems to the presenting problem are either as stated in the HPI or were not pertinent or were negative for the symptoms and/or complaints related to the presenting medical problem. PHYSICAL EXAMINATION: Vital signs reviewed, nursing noted reviewed. GENERAL: Well-appearing, well-nourished and in no acute distress. HEAD: Atraumatic, normocephalic. EYES: extraocular movements intact, sclera anicteric, mild bilateral conjunctival injection, and upper lid edema, no tenderness with palpation, no periorbital edema or injection. PERRLA, no pain with extraocular eye movement. ENT: nares patent, oropharynx clear without exudates. Moist mucous membranes. NECK: Normal range of motion, supple without lymphadenopathy LUNGS: Breath sounds clear to auscultation bilaterally and equal. No wheezes rales or rhonchi. HEART: Regular rate and rhythm without murmurs ABDOMEN: Soft, nontender, normoactive bowel sounds. No rebound, guarding, or rigidity. No masses appreciated. EXTREMITIES: Nontender, good range of motion, no pitting or edema. NEUROLOGICAL: No focal neurological deficits. Moves all extremities spontaneously Motor and sensory grossly intact on exam. PSYCH: Normal mood, normal affect. SKIN: Warm, Dry, normal turgor, no rashes or lesions noted on exposed skin TRAVEL OUTSIDE OF THE [place] IN LAST 30 DAYS: No - Related Data Allergies/Adverse Reactions: No Known Allergies Allergy (Verified 06/12/17 12:53) Past Medical History - Social History Smoking Status: Current Every Day Smoker Frequency of alcohol use: Rare Drug Abuse: None Family History: Reviewed & Not Pertinent, COPD, DM Patient has suicidal ideation: No Patient has homicidal ideation: No - Past Medical History Cardiac Medical History: Reports: Hx Hypercholesterolemia, Hx Hypertension Pulmonary Medical History: Reports: Hx COPD - sleep apnea-doesn't wear machine Renal/ Medical History: Denies: Hx Peritoneal Dialysis Musculoskeletal Medical History: Reports Hx Musculoskeletal Deformity, Reports Hx Musculoskeletal Trauma Psychiatric Medical History: Reports: Hx Anxiety Past Surgical History: Reports: Hx Abdominal Surgery - hernia repair, Hx Herniorrhaphy, Hx Myringotomy, Hx Orthopedic Surgery - 06/2015, neck hinges - Immunizations Hx Diphtheria, Pertussis, Tetanus Vaccination: Yes Physical Exam - Vital signs Vitals: Temp Pulse BP Pulse Ox 97.8 F 84 133/84 H 96 01/23/18 04:48 01/23/18 04:48 01/23/18 04:48 01/23/18 04:48 Course - Re-evaluation Re-evalutation: Patient seen and examined vital signs reviewed. Patient was evaluated and treated as appropriate for the patient's presenting symptoms and complaint, with consideration of any critical or life threatening conditions that may be associated with their obtained history and exam as noted above. Patient was treated with ciprofloxacin eyedrops The patient was re-evaluated and was stable Evaluation was most consistent with conjunctivitis, possible allergic, but will treat with ciprofloxacin eyedrops for 7 days, advised Zyrtec, allergy eyedrops for the next 7 days as well, patient was agreeable and discharged. Plan of care was discussed with the patient at this point, after careful consideration I feel that that patient can be discharged from the emergency department, the patient was educated treatments and reasons to return to the emergency department based on their presumed diagnosis as noted above, they were advised to followup with a primary care physician in 2-3 days. Patient was agreeable to plan of care. *Note is created using voice recognition software and may contain spelling, syntax or grammatical errors. - Vital Signs Vital signs: Temp Pulse Resp BP Pulse Ox 97.8 F 84 133/84 H 96 01/23/18 04:48 01/23/18 04:48 01/23/18 04:48 01/23/18 04:48 Discharge - Discharge Clinical Impression: Conjunctivitis Qualifiers: Conjunctivitis type: acute Acute conjunctivitis type: unspecified Laterality: bilateral Qualified Code(s): H10.33 - Unspecified acute conjunctivitis, bilateral Condition: Stable Disposition: HOME, SELF-CARE Instructions: Conjunctivitis ([facility]), Eyedrop Use ([facility]) Additional Instructions: PLACE 1 drop of the antibiotic eyedrop, ciprofloxacin, in each eye every 4 hours for 5 days and then stop. Please take the over the counter antihistamine such as claritin/zytec/mario. Please also consider trying the eye drop Naph-Con-A as directed on Forms: Return to Work Referrals: ANITA LARIOS MD [ACTIVE STAFF] - Follow up as needed (or your primary care)
== END 2018-01-23 06:46 | disposition home or self-care (01) ==
LOC: ER 04:38
DX: H10.33 Unspecified acute conjunctivitis, bilateral (principal); F17.210 Nicotine dependence, cigarettes, uncomplicated; I10 Essential (primary) hypertension; J44.9 Chronic obstructive pulmonary disease, unspecified
CPT/HCPCS: 99282; J3490

== ENCOUNTER 2018-01-26 05:55 | Emergency (ER) | payer OTHER ==
[2018-01-26 06:03] VITALS: BP 137/84
[2018-01-26] MEDS ORDERED: TETRACAINE HCL 0.5% OPH SOLN 4 ML OU ONE (06:09)
--- NOTE | 2018-01-26 06:33 | ER Document Report ---
ED Eye Complaint - General Chief Complaint: Eye Pain Stated Complaint: EYE PAIN Time Seen by Provider: 01/26/18 06:03 TRAVEL OUTSIDE OF THE [place] IN LAST 30 DAYS: No - HPI Patient complains to provider of: eye redness Onset: Other - 42-year-old man that presents for evaluation of eye redness in the left eye, he was evaluated 4 days prior for redness in the right eye at which time he was prescribed ciprofloxacin eyedrops as well as told to initiate treatment with an antihistamine. Since that time the vision in that eye has seemed to improve however his left eye now seems affected over the last day and yesterday he noted some blurring of his vision which improved over time. He does not wear contact lenses does wear reading glasses. - Related Data Allergies/Adverse Reactions: No Known Allergies Allergy (Verified 01/26/18 05:59) Past Medical History - General Information source: Patient - Social History Smoking Status: Current Every Day Smoker Chew tobacco use (# tins/day): No Frequency of alcohol use: Occasional Drug Abuse: None Family History: Reviewed & Not Pertinent, COPD, DM Patient has suicidal ideation: No Patient has homicidal ideation: No - Past Medical History Cardiac Medical History: Reports: Hx Hypercholesterolemia, Hx Hypertension Pulmonary Medical History: Reports: Hx COPD - sleep apnea-doesn't wear machine Renal/ Medical History: Denies: Hx Peritoneal Dialysis Musculoskeletal Medical History: Reports Hx Musculoskeletal Deformity, Reports Hx Musculoskeletal Trauma Psychiatric Medical History: Reports: Hx Anxiety Past Surgical History: Reports: Hx Abdominal Surgery - hernia repair, Hx Herniorrhaphy, Hx Myringotomy, Hx Orthopedic Surgery - 06/2015, neck hinges - Immunizations Hx Diphtheria, Pertussis, Tetanus Vaccination: Yes Review of Systems - Review of Systems -: Yes All other systems reviewed and negative Physical Exam - Vital signs Vitals: Temp Pulse Resp BP Pulse Ox 97.4 F 97 16 137/84 H 98 01/26/18 06:01 01/26/18 06:01 01/26/18 06:01 01/26/18 06:01 01/26/18 06:01 - General General appearance: Appears well In distress: None - HEENT Head: Normocephalic Conjunctiva: Injected - bilateral Cornea: Normal Extraocular movements intact: Yes Eyelashes: Normal Pupils: PERRL Visual acuity- Right eye: 20/20 Visual acuity- Left eye: 20/20 Corrective lenses worn: No Right intraocular pressure: limited exam Left intraocular pressure: limited exam Lids everted for exam: bilateral: Normal Anterior chamber: Normal - Respiratory Respiratory status: No respiratory distress Chest status: Nontender Breath sounds: Normal Chest palpation: Normal - Cardiovascular Rhythm: Regular Heart sounds: Normal auscultation Murmur: No - Abdominal Inspection: Normal Distension: No distension Tenderness: Nontender Organomegaly: No organomegaly - Back Back: Normal - Extremities General upper extremity: Normal inspection, Nontender, Normal ROM, Normal strength General lower extremity: Normal inspection, Nontender, Normal ROM, Normal strength - Neurological Neuro grossly intact: Yes Cognition: Normal Orientation: AAOx4 [place] Coma Scale Eye Opening: Spontaneous [place] Coma Scale Verbal: Oriented [place] Coma Scale Motor: Obeys Commands [place] Coma Scale Total: 15 Speech: Normal Cranial nerves: Normal Motor strength normal: LUE, RUE, LLE, RLE - Psychological Associated symptoms: Normal affect Course - Re-evaluation Re-evalutation: 01/26/18 06:41 Is a 42-year-old man that presents for injection tearing and some drainage from his left eye after previously having been evaluated for similar symptoms in the right eye and started on Cipro drops. His right eye improved then irrigated to have symptoms in his left eye. He denies any fevers or chills, denies any headache, notes that his vision seems somewhat blurred as if via film. Grossly the eyes do appear to have slight swelling in the soft tissues around the eyes. Bilaterally the eyes are injected, more prominent on the left than the right Visual acuity is intact Extraocular movements are intact staining of the eye does not demonstrate any obvious uptake of dye, there is no appreciable abrasions, no dendritic lesions, no punctate lesions. There is no appreciable hyphema. Believe this patient likely has a conjunctivitis as it is been refractory to treatment and switched eyes likely it is a viral conjunctivitis as opposed to a bacterial conjunctivitis however will transition the patient from Ciprodex drops to erythromycin ointment for coverage. He was given a work note and instructions for aggressive hand hygiene as well as a referral to an electronic data interchange specialist. - Vital Signs Vital signs: Temp Pulse Resp BP Pulse Ox 97.4 F 97 16 137/84 H 98 01/26/18 06:01 01/26/18 06:01 01/26/18 06:01 01/26/18 06:01 01/26/18 06:01 Discharge - Discharge Clinical Impression: Tobacco abuse Conjunctivitis Qualifiers: Conjunctivitis type: acute Acute conjunctivitis type: unspecified Laterality: left Qualified Code(s): H10.32 - Unspecified acute conjunctivitis, left eye Condition: Good Disposition: HOME, SELF-CARE Instructions: Conjunctivitis ([facility]) Additional Instructions: Your seen today in the emergency department for your red and itchy eye. You had an evaluation including a physical exam, dye staining of your eye. He should follow-up with the doctor provided the, or an electronic data interchange specialist of your choosing. Use the antibiotic prescribed to use as directed. Return for worsening fevers, chills, headaches or change in any other symptoms. Continue to use warm compresses twice daily. Prescriptions: Erythromycin Base [Erythromycin Oph 1 gm Oint Ud] 1 applic OP QID 5 Days #1 tube Forms: Return to Work Referrals: TIMOTEO JACQUES MD [CONSULTING STAFF] - Follow up as needed
[2018-01-26] MEDS ORDERED: ERYTHROMYCIN 0.5% OPH OINT 1 GM UNIT DOSE OU ONE (06:37)
== END 2018-01-26 06:50 | disposition home or self-care (01) ==
LOC: ER 05:55
DX: H10.32 Unspecified acute conjunctivitis, left eye (principal); H57.12 Ocular pain, left eye; J44.9 Chronic obstructive pulmonary disease, unspecified; I10 Essential (primary) hypertension; F17.200 Nicotine dependence, unspecified, uncomplicated
CPT/HCPCS: 99283; J3490

== ENCOUNTER 2018-01-28 23:06 | Emergency (ER) | payer OTHER ==
--- NOTE | 2018-01-28 23:29 | RADIOLOGY REPORT (SQ) ---
EXAM DESCRIPTION: XR CHEST 1 VIEW COMPLETED DATE/TME: 01/28/2018 23:13 CLINICAL HISTORY: 42 years, Male, CP Compared to 01/30/2017. FINDINGS: The heart is not enlarged. Aorta is within normal limits. No consolidation or pleural effusion. No pulmonary edema or pneumothorax. IMPRESSION: No acute disease.
[2018-01-28 23:40] LABS: ALANINE AMINOTRANSFERASE 25 U/L (21-72); ALBUMIN 4.7 g/dL (3.5-5.0); ALKALINE PHOSPHATASE 76 U/L (38-126); ANION GAP 13 (5-19); ASPARTATE AMINO TRANSFERASE 32 U/L (17-59); BILIRUBIN,DIRECT 0.2 mg/dL (0.0-0.4); BILIRUBIN,TOTAL 0.5 mg/dL (0.2-1.3); BLOOD UREA NITROGEN 10 mg/dL (7-20); CALCIUM 9.3 mg/dL (8.4-10.2); CARBON DIOXIDE 26 mmol/L (22-30); CHLORIDE 106 mmol/L (98-107); CREATINE KINASE 51 U/L (55-170); GLUCOSE 104 mg/dL (75-110); POTASSIUM 4.7 mmol/L (3.6-5.0); TOTAL PROTEIN 7.7 g/dL (6.3-8.2)
--- NOTE | 2018-01-28 23:41 | ER Document Report ---
ED Cardiac - General Chief Complaint: Chest Pain Stated Complaint: CHEST PAIN Time Seen by Provider: 01/28/18 23:18 Mode of Arrival: Medic Information source: Patient, Emergency Med Personnel, [facility] Records Notes: 42-year-old male patient comes emergency room by EMS complaining of left-sided chest pain going into the left upper extremity. He was sitting around when the pain started about 10 PM this evening. It has been constant since then for the past 1-1/2 hours. The pain is mostly in the left lateral chest wall and the posterior left upper arm. He describes it as a sharp tingling discomfort. He also reports mild shortness of breath with the pain. He does have a history of hypertension hyperlipidemia, does not have a history of coronary artery disease. TRAVEL OUTSIDE OF THE [place] IN LAST 30 DAYS: No - Related Data Allergies/Adverse Reactions: No Known Allergies Allergy (Verified 01/28/18 23:22) Past Medical History - General Information source: Patient, Emergency Med Personnel, [facility] Records - Social History Smoking Status: Current Every Day Smoker Cigarette use (# per day): Yes Chew tobacco use (# tins/day): No Smoking Education Provided: No Frequency of alcohol use: Occasional Drug Abuse: None Lives with: Alone Family History: Reviewed & Not Pertinent, COPD, DM Patient has suicidal ideation: No Patient has homicidal ideation: No - Past Medical History Cardiac Medical History: Reports: Hx Hypercholesterolemia, Hx Hypertension Pulmonary Medical History: Reports: Hx Sleep Apnea EENT Medical History: Reports: None Neurological Medical History: Reports: None Endocrine Medical History: Reports: None Renal/ Medical History: Reports: None GI Medical History: Reports: None Musculoskeletal Medical History: Reports Hx Musculoskeletal Deformity, Reports Hx Musculoskeletal Trauma Psychiatric Medical History: Reports: Hx Anxiety Past Surgical History: Reports: Hx Herniorrhaphy, Hx Myringotomy, Hx Orthopedic Surgery - L cervical laminectomies C4-5,5-6,6-7 with micro plates and screws 2015 - Immunizations Hx Diphtheria, Pertussis, Tetanus Vaccination: Yes Review of Systems - Review of Systems Constitutional: No symptoms reported EENT: No symptoms reported Cardiovascular: No symptoms reported Respiratory: No symptoms reported Gastrointestinal: No symptoms reported Genitourinary: No symptoms reported Musculoskeletal: Neck pain Skin: No symptoms reported Hematologic/Lymphatic: No symptoms reported Neurological/Psychological: Anxiety Physical Exam - Vital signs Vitals: Resp 9 L 01/28/18 23:12 Interpretation: Normal - General General appearance: Appears well, Alert In distress: None - HEENT Head: Normocephalic, Atraumatic Eyes: Normal Pupils: PERRL Neck: Normal - Respiratory Respiratory status: No respiratory distress Breath sounds: Normal Chest palpation: Tender - Some tenderness to the left anterior chest wall, more tender to the left lateral ribs - Cardiovascular Rhythm: Regular Heart sounds: Normal auscultation Murmur: No - Abdominal Inspection: Normal - Back Back: Normal - Extremities General upper extremity: Other - Tender to palpate the left posterior upper arm muscles General lower extremity: Normal inspection - Neurological Neuro grossly intact: Yes - Psychological Associated symptoms: Normal affect, Normal mood - Skin Skin Temperature: Warm Skin Moisture: Dry Skin Color: Normal Course - Vital Signs Vital signs: Temp Pulse Resp BP Pulse Ox 98.1 F 16 126/76 H 94 01/28/18 23:36 01/28/18 23:15 01/28/18 23:15 01/28/18 23:15 - Laboratory Result Diagrams: 01/28/18 23:07 01/28/18 23:07 Laboratory results interpreted by me: 01/28/18 01/28/18 23:07 23:07 Hgb 17.8 H Hct 51.4 H Creatine Kinase 51 L - Diagnostic Test Radiology reviewed: Image reviewed, Reports reviewed - Chest x-ray is unremarkable - EKG Interpretation by Me EKG shows normal: Sinus rhythm, Larue, Intervals, QRS Complexes. abnormal: ST-T Waves - Inferior T abnormalities Rate: Normal - 83 Rhythm: NSR Voltage: Consistant with LVH When compared to previous EKG there are: Changes noted - The T wave in leads III is inverted compared to EKG from 1 year ago Discharge - Discharge Clinical Impression: Chest wall pain Condition: Stable Disposition: HOME, SELF-CARE Additional Instructions: Chest Pain of Unclear Cause The exact cause of your chest pain isn't clear. Fortunately, there is no evidence of a dangerous medical condition. Further testing may be required to find the source of the pain. Most often, we find that this pain is coming from the chest wall -- the muscles or rib joints in the chest. But chest pain can come from the lung and lung lining, the esophagus, the heart valves or heart lining, and even the stomach or gallbladder. Rest. Eat lightly until the pain is gone. We may prescribe medicine for pain and inflammation. You should call the physician immediately if the pain radiates to the shoulder, jaw or arms; if you start to run a fever or develop a cough; or if you develop shortness of breath, or other new or alarming symptoms. Your x-ray, EKG and lab work were all unremarkable. Your examination suggest the pain is coming from the ribs and muscles in your chest wall, and the muscles in the back of your upper arm. You should take Tylenol and ibuprofen for the discomfort and rest. Follow-up with your primary care provider in the next 1-2 days if not improving. RETURN TO THE EMERGENCY ROOM IF ANY NEW OR WORSENING SYMPTOMS.
[2018-01-28 23:47] LABS: ABSOLUTE BASOPHILS # (AUTO) 0.1 10^3/uL (0.0-0.2); ABSOLUTE EOSINOPHILS # (AUTO) 0.2 10^3/uL (0.0-0.6); ABSOLUTE LYMPHOCYTES (AUTO) 2.4 10^3/uL (0.5-4.7); ABSOLUTE MONOCYTES (AUTO) 0.6 10^3/uL (0.1-1.4); ABSOLUTE NEUT (AUTO) 5.5 10^3/uL (1.7-8.2); BASOPHILS % (AUTO) 0.7 % (0-2); EOSINOPHILS % (AUTO) 2.3 % (0-6); HEMATOCRIT 51.4 % (37.9-51.0); HEMOGLOBIN 17.8 g/dL (13.5-17.0); LYMPHOCYTES % (AUTO) 27.8 % (13-45); MEAN CORPUSCULAR HEMOGLOBIN 32.7 pg (27.0-33.4); MEAN CORPUSCULAR HGB CONC 34.6 g/dL (32.0-36.0); MEAN CORPUSCULAR VOLUME 95 fl (80-97); MONOCYTES % (AUTO) 6.5 % (3-13); PLATELET COUNT 206 10^3/uL (150-450); RED BLOOD COUNT 5.43 10^6/uL (4.35-5.55); RED CELL DISTRIBUTION WIDTH 13.1 % (11.5-14.0); SEGMENTED NEUTROPHILS % (AUTO) 62.7 % (42-78); TOTAL CELLS COUNTED % (AUTO) 100 %; WHITE BLOOD COUNT 8.8 10^3/uL (4.0-10.5)
[2018-01-28 23:51] LABS: CREATINE KINASE MB 0.81 ng/mL (<4.55)
[2018-01-28 23:52] LABS: TROPONIN I < 0.012 ng/mL
[2018-01-29 01:57] VITALS: BP 127/77
--- NOTE | 2018-01-29 08:10 | EKG REPORT ---
SEVERITY:- ABNORMAL ECG - SINUS RHYTHM PROBABLE LEFT VENTRICULAR HYPERTROPHY BORDERLINE T ABNORMALITIES, INFERIOR LEADS : Confirmed by: Dang Awan 29-Jan-2018 08:09:46
== END 2018-01-29 01:57 | disposition home or self-care (01) ==
LOC: ER 23:06
DX: R07.89 Other chest pain (principal); R06.02 Shortness of breath; I10 Essential (primary) hypertension; E78.5 Hyperlipidemia, unspecified; I25.10 Atherosclerotic heart disease of native coronary artery without angina pectoris; F17.210 Nicotine dependence, cigarettes, uncomplicated
CPT/HCPCS: 36415; 71045; 80053; 82550; 82553; 84484; 85025; 93005; 93010; 99285

== ENCOUNTER 2018-02-22 20:44 | Emergency (ER) | payer OTHER ==
--- NOTE | 2018-02-22 22:22 | ER Document Report ---
ED General - General Chief Complaint: Neck and Upper Back Pain Stated Complaint: NECK PAIN/STIFFNESS Time Seen by Provider: 02/22/18 22:22 Notes: Patient with a history of cervical fusion/prosthetic disks presents with abrupt onset neck pain and stiffness worse when looking up while doing the dishes today nonradiating with no neurologic symptoms. He has no headache no fever no photophobia, and has not expressed pain like this before. He did not take anything. TRAVEL OUTSIDE OF THE [place] IN LAST 30 DAYS: No - Related Data Allergies/Adverse Reactions: No Known Allergies Allergy (Verified 01/28/18 23:22) Past Medical History - Social History Smoking Status: Never Smoker Family History: Reviewed & Not Pertinent, COPD, DM - Past Medical History Cardiac Medical History: Reports: Hx Hypercholesterolemia, Hx Hypertension Pulmonary Medical History: Reports: Hx COPD - sleep apnea-doesn't wear machine, Hx Sleep Apnea Renal/ Medical History: Denies: Hx Peritoneal Dialysis Musculoskeletal Medical History: Reports Hx Musculoskeletal Deformity, Reports Hx Musculoskeletal Trauma Psychiatric Medical History: Reports: Hx Anxiety Past Surgical History: Reports: Hx Abdominal Surgery - hernia repair, Hx Herniorrhaphy, Hx Myringotomy, Hx Orthopedic Surgery - L cervical laminectomies C4-5,5-6,6-7 with micro plates and screws 06/2015 - Immunizations Hx Diphtheria, Pertussis, Tetanus Vaccination: Yes Review of Systems - Review of Systems Notes: REVIEW OF SYSTEMS GEN: Denies fever, chills, weight loss ENT: Denies sore throat, nasal discharge, ear pain EYES: Denies blurry vision, eye pain, discharge CV: Denies chest pain, palpitations, edema RESP: Denies cough, shortness of breath, wheezing GI: Denies abdominal pain, nausea, vomiting, diarrhea MSK: Denies joint pain/swelling, edema, positive neck pain SKIN: Denies rash, skin lesions LYMPH: Denies swollen glands/lymph nodes NEURO: Denies headache, focal weakness or numbness, dizziness PSYCH: Denies depression, suicidal or homicidal ideation PHYSICAL EXAMINATION General: No acute distress, well-nourished Head: Atraumatic, normocephalic ENT: Mouth normal, oropharynx moist, no exudates or tonsillar enlargement Eyes: Conjunctiva normal, pupils equal, lids normal Neck: No JVD, supple, no guarding, posterior surgical scar well-healed, patient voluntarily moves the neck without guarding, nodding his head and shaking his head to my questions, no tenderness. CVS: Normal rate, regular rhythm, no murmurs Resp: No resp distress, equal and normal breath sounds bilaterally GI: Nondistended, soft, no tenderness to palpation, no rebound or guarding Ext: No deformities, no edema, normal range of motion in upper and lower ext Back: No CVA or midline TTP Skin: No rash, warm Lymphatic: No lymphadeopathy noted Neuro: Awake, alert. Face symmetric. GCS 15. 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 He has no neurologic deficits to suggest stroke or radiculopathy or cord compression. He is no fever or meningismus to suggest meningitis his range of motion is normal. Head CT ordered as stress protocol is negative. Patient be discharged with Robaxin after receiving Motrin in ED, he drove himself here. Follow-up primary care. I have discussed with the patient there likely diagnosis, aftercare plan, follow-up plans and my usual and customary return precautions. They verbalized understanding of this. - Vital Signs Vital signs: Temp Pulse Resp BP Pulse Ox 97.7 F 84 18 130/84 H 97 02/22/18 20:53 02/22/18 20:53 02/22/18 20:53 02/22/18 20:53 02/22/18 20:53 - Diagnostic Test Radiology reviewed: Image reviewed, Reports reviewed Discharge - Discharge Clinical Impression: Neck stiffness Condition: Good Disposition: HOME, SELF-CARE Instructions: Neck Injury (Cervical Strain) ([facility]) Prescriptions: Methocarbamol [Robaxin 500 mg Tablet] 500 mg PO BIDP PRN #14 tablet PRN Reason:
--- NOTE | 2018-02-22 22:54 | RADIOLOGY REPORT (SQ) ---
EXAM DESCRIPTION: CT HEAD WITHOUT IV CONTRAST COMPLETED DATE/TME: 02/22/2018 22:23 CLINICAL HISTORY: 42 years, Male, MOODY, atraumatic COMPARISON: 10/31/2016 CT. TECHNIQUE: 191 Images stored on PACS. All CT scanners at this facility use dose modulation, iterative reconstruction, and/or weight based dosing when appropriate to reduce radiation dose to as low as reasonably achievable (ALARA). [facility]: Dose Right [facility]: CareDose [facility]: Dose Right [facility]: Teradose 4D [facility]: [employer] LIMITATIONS: None. FINDINGS: The globes are intact. The paranasal sinuses and right mastoid air cells are unremarkable. Opacification of the left mastoid air cells with coalescence, suggesting what may be chronic left mastoiditis/otomastoiditis. Similar findings were present previously. No displaced or depressed skull fracture. No intra or extra-axial hemorrhage. CT is limited for evaluation of acute infarct. No CT evidence for large or territorial acute infarct. No mass or midline shift. IMPRESSION: Chronic opacification and coalescence of the left mastoid air cells. Otherwise unremarkable CT brain. TECHNICAL DOCUMENTATION: Quality ID # [id number]: Final reports with documentation of one or more dose reduction techniques (e.g., Automated exposure control, adjustment of the mA and/or kV according to patient size, use of iterative reconstruction technique) 2010 [employer]- All Rights Reserved
[2018-02-22] MEDS ORDERED: IBUPROFEN 600 MG TABLET PO ONE (23:00)
[2018-02-22 23:06] VITALS: BP 139/85
== END 2018-02-22 23:16 | disposition home or self-care (01) ==
LOC: ER 20:44
DX: M43.6 Torticollis (principal); M54.2 Cervicalgia; M54.9 Dorsalgia, unspecified; E78.00 Pure hypercholesterolemia, unspecified; I10 Essential (primary) hypertension
CPT/HCPCS: 70450; 99284

== ENCOUNTER 2018-05-20 19:07 | Emergency (ER) | payer OTHER ==
--- NOTE | 2018-05-20 21:10 | ER Document Report ---
Addendum entered and electronically signed by SHANELL HELM PA-C 05/20/18 21:11: Discharge - Discharge Clinical Impression: Strain of calf muscle Qualifiers: Encounter type: initial encounter Laterality: left Qualified Code(s): S86.812A - Strain of other muscle(s) and tendon(s) at lower leg level, left leg, initial encounter Disposition: HOME, SELF-CARE Instructions: Use of Crutches ([facility]), Muscle Strain ([facility]) Prescriptions: Tramadol HCl/Acetaminophen [Tramadol-Acetaminophn 37.5-325] 1 each PO Q6HP PRN #12 tablet PRN Reason: Forms: Return to Work Referrals: JUNO SHAFFER DO [ACTIVE STAFF] - Follow up in 1 week Original Note: ED General - General Chief Complaint: Leg Pain Stated Complaint: LEFT LEG PAIN Time Seen by Provider: 05/20/18 20:48 Mode of Arrival: Ambulatory Information source: Patient TRAVEL OUTSIDE OF THE [place] IN LAST 30 DAYS: No - HPI Onset: Yesterday Onset/Duration: Sudden Quality of pain: Cramping, Sharp Severity: Moderate Associated symptoms: None Exacerbated by: Movement, Walking Relieved by: Remaining still Similar symptoms previously: No Recently seen / treated by doctor: No Notes: 43-year-old male coming in today with left calf pain. Yesterday he was walking down a couple stairs at work and felt a sharp pain in his left calf. He is able to ambulate on it but it hurts. He denies having any swelling or bruising. No previous injuries - Related Data Allergies/Adverse Reactions: No Known Allergies Allergy (Verified 01/28/18 23:22) Past Medical History - General Information source: Patient - Social History Smoking Status: Current Every Day Smoker Frequency of alcohol use: Occasional Drug Abuse: None Family History: Reviewed & Not Pertinent, COPD, DM Patient has suicidal ideation: No Patient has homicidal ideation: No - Past Medical History Cardiac Medical History: Reports: Hx Hypercholesterolemia, Hx Hypertension Pulmonary Medical History: Reports: Hx COPD - sleep apnea-doesn't wear machine, Hx Sleep Apnea Renal/ Medical History: Denies: Hx Peritoneal Dialysis Musculoskeletal Medical History: Reports Hx Musculoskeletal Deformity, Reports Hx Musculoskeletal Trauma Psychiatric Medical History: Reports: Hx Anxiety Past Surgical History: Reports: Hx Abdominal Surgery - hernia repair, Hx Herniorrhaphy, Hx Myringotomy, Hx Orthopedic Surgery - L cervical laminectomies C4-5,5-6,6-7 with micro plates and screws 06/2015 - Immunizations Hx Diphtheria, Pertussis, Tetanus Vaccination: Yes Review of Systems - Review of Systems Notes: Constitutional: No fevers. No chills. EENT: Atraumatic Cardiovascular: No chest pain. No palpitations. Respiratory: No cough. No shortness of breath. No respiratory distress. Gastrointestinal: No abdominal pain. No nausea, vomiting, or diarrhea. Genitourinary: Atraumatic. No lesions. No pain. No discharge. Musculoskeletal: Left calf pain Skin: No rash or lesions. Lymphatic: No swollen lymph nodes. Neurologic: No headache. No syncope. Psychiatric: No suicidal or homicidal ideation. Physical Exam - Vital signs Vitals: Temp Pulse Resp BP Pulse Ox 97.9 F 80 18 137/91 H 98 05/20/18 19:46 05/20/18 19:46 05/20/18 19:46 05/20/18 19:46 05/20/18 19:46 - Notes Notes: General: Well-developed, well-nourished. In no acute distress. Non-toxic appearing. Cardiac: Well-perfused. Regular rate and rhythm. No murmurs, rubs, or gallops. Pulmonary: No respiratory distress. No cyanosis. Bilateral lung fiels are clear to auscultation. Abdominal: Non-distended. Non-rigid. Bowels sounds are present in all four quadrants. No guarding or rebound. HEENT: Head is atraumatic. Conjunctivae not reddened. No tearing. PERRL. EOMI. Orbits atraumatic. No periorbital swelling or erythema. Oropharynx is without erythema, swelling, or exudates. Neck: Supple. No adenopathy. No meningismus. Dermatologic: Warm with good turgor. No rash. Atraumatic. Chest: Atraumatic. No chest wall tenderness to palpation. Musculoskeletal: Left calf is not swollen or erythematous. It is slightly tender to squeeze. Distal pulses intact. Full range of motion Genitourinary: Examination deferred Neurologic: No gross neurologic deficits. Psychiatric: Normal mood. Course - Re-evaluation Re-evalutation: 05/20/18 21:08 Calf strain. Will give patient crutches a few days of pain medication and follow-up - Vital Signs Vital signs: Temp Pulse Resp BP Pulse Ox 97.9 F 80 18 137/91 H 98 05/20/18 19:46 05/20/18 19:46 05/20/18 19:46 05/20/18 19:46 05/20/18 19:46 Discharge - Discharge Clinical Impression: Strain of calf muscle Qualifiers: Encounter type: initial encounter Laterality: left Qualified Code(s): S86.812A - Strain of other muscle(s) and tendon(s) at lower leg level, left leg, initial encounter Disposition: HOME, SELF-CARE Instructions: Muscle Strain ([facility]), Use of Crutches ([facility]) Prescriptions: Tramadol HCl/Acetaminophen [Tramadol-Acetaminophn 37.5-325] 1 each PO Q6HP PRN #12 tablet PRN Reason: Referrals: JUNO SHAFFER DO [ACTIVE STAFF] - Follow up in 1 week
[2018-05-20 21:30] VITALS: BP 130/89
== END 2018-05-20 21:31 | disposition home or self-care (01) ==
LOC: ER 19:07
DX: S86.912A Strain of unspecified muscle(s) and tendon(s) at lower leg level, left leg, initial encounter (principal); X58.XXXA Exposure to other specified factors, initial encounter; M79.662 Pain in left lower leg; F17.200 Nicotine dependence, unspecified, uncomplicated; I10 Essential (primary) hypertension; J44.9 Chronic obstructive pulmonary disease, unspecified
CPT/HCPCS: 99283

== ENCOUNTER 2018-09-25 05:44 | Emergency (ER) | payer OTHER ==
[2018-09-25 06:14] LABS: APPEARANCE,URINE SLIGHTLY-CLOUDY; BILIRUBIN,URINE NEGATIVE (NEGATIVE); COLOR,URINE YELLOW; GLUCOSE, URINE NEGATIVE (NEGATIVE); KETONES,URINE NEGATIVE (NEGATIVE); LEUKOCYTE ESTERASE,URINE NEGATIVE (NEGATIVE); NITRITE,URINE NEGATIVE (NEGATIVE); PROTEIN,URINE NEGATIVE (NEGATIVE); URINE SPECIFIC GRAVITY 1.014; UROBILINOGEN,URINE NEGATIVE mg/dL (<2.0)
--- NOTE | 2018-09-25 08:48 | ER Document Report ---
ED General - General Chief Complaint: Urinary Problem Stated Complaint: URINARY COMPLAINTS Time Seen by Provider: 09/25/18 08:29 Primary Care Provider: FRANCISCA WEAVER MD [[facility]] - Follow up in 1 week (For follow up of blood in your urine) Information source: Patient TRAVEL OUTSIDE OF THE [place] IN LAST 30 DAYS: No - HPI Notes: 43-year-old male to the emergency department with complaints of dark urine, vomiting, nausea, and headache that began this morning at 4:30 AM. States that he was concerned that perhaps he was dehydrated. 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 States that since he has been here in the emergency department has headache, vomiting, and dark urine have resolved. Denies pain with urination, abdominal pain, diarrhea, chest pain, shortness of breath, leg pain, frequent urination. He does smoke - Related Data Allergies/Adverse Reactions: No Known Allergies Allergy (Verified 09/25/18 05:45) Past Medical History - General Information source: Patient - Social History Smoking Status: Current Every Day Smoker Chew tobacco use (# tins/day): No Frequency of alcohol use: Occasional Drug Abuse: None Family History: Reviewed & Not Pertinent, COPD, DM Patient has suicidal ideation: No Patient has homicidal ideation: No - Past Medical History Cardiac Medical History: Reports: Hx Hypercholesterolemia, Hx Hypertension Pulmonary Medical History: Reports: Hx COPD - sleep apnea-doesn't wear machine, Hx Sleep Apnea Renal/ Medical History: Denies: Hx Peritoneal Dialysis Musculoskeletal Medical History: Reports Hx Musculoskeletal Deformity, Reports Hx Musculoskeletal Trauma Psychiatric Medical History: Reports: Hx Anxiety Past Surgical History: Reports: Hx Abdominal Surgery - hernia repair, Hx Herniorrhaphy, Hx Myringotomy, Hx Orthopedic Surgery - L cervical laminectomies C4-5,5-6,6-7 with micro plates and screws 06/2015 - Immunizations Hx Diphtheria, Pertussis, Tetanus Vaccination: Yes Review of Systems - Review of Systems Constitutional: denies: Chills, Fever EENT: No symptoms reported Cardiovascular: denies: Chest pain, Palpitations, Heart racing, Dizziness, Lightheaded Respiratory: denies: Cough, Short of breath Gastrointestinal: Nausea, Vomiting. denies: Abdominal pain Genitourinary: Other - Urine. denies: Dysuria, Frequency, Flank pain, Pain, Urgency, Retention Musculoskeletal: No symptoms reported Skin: No symptoms reported Neurological/Psychological: No symptoms reported -: Yes All other systems reviewed and negative Physical Exam - Vital signs Vitals: Temp Pulse Resp BP Pulse Ox 97.8 F 93 18 123/88 H 97 09/25/18 05:47 09/25/18 05:47 09/25/18 05:47 09/25/18 05:47 09/25/18 05:47 Interpretation: Normal - General General appearance: Appears well, Alert In distress: None - HEENT Head: Normocephalic, Atraumatic Eyes: Normal Pupils: PERRL - Respiratory Respiratory status: No respiratory distress Chest status: Nontender Breath sounds: Normal Chest palpation: Normal - Cardiovascular Rhythm: Regular Heart sounds: Normal auscultation Murmur: No - Abdominal Inspection: Normal Distension: No distension Bowel sounds: Normal Tenderness: Nontender Organomegaly: No organomegaly - Back Back: Normal, Nontender. No: CVA tenderness - Extremities General upper extremity: Normal inspection, Nontender, Normal color, Normal ROM, Normal temperature General lower extremity: Normal inspection, Nontender, Normal color, Normal ROM, Normal temperature, Normal weight bearing. No: Brisa's sign - Neurological Neuro grossly intact: Yes Cognition: Normal Orientation: AAOx4 Dexter Coma Scale Eye Opening: Spontaneous Dexter Coma Scale Verbal: Oriented Murtaza Coma Scale Motor: Obeys Commands Dexter Coma Scale Total: 15 Speech: Normal Motor strength normal: LUE, RUE, LLE, RLE Sensory: Normal - Psychological Associated symptoms: Normal affect, Normal mood - Skin Skin Temperature: Warm Skin Moisture: Dry Skin Color: Normal Course - Vital Signs Vital signs: Temp Pulse Resp BP Pulse Ox 97.9 F 90 16 126/89 H 99 09/25/18 08:58 09/25/18 08:58 09/25/18 08:58 09/25/18 08:58 09/25/18 08:58 - Laboratory Laboratory results interpreted by me: 09/25/18 05:50 Urine Blood MODERATE H 09/25/18 09/25/18 05:50 Urine Blood MODERATE H Urine WBC (Auto) 3 Urine RBC (Auto) 11 - Transfer of Care Notes: 09/25/18 Impression: Hematuria. States he feels better now that he has been in the ER. Offered blood work but he does not believe he needs any. Did discuss hematuria in his blood. He has no pain with this. Will have him follow with Urology for follow up of this blood in his urine as he is a smoker. Patient agrees with the plan. Discharge - Discharge Clinical Impression: Hematuria, Headache Condition: Good Disposition: HOME, SELF-CARE Instructions: Headache ([facility]), Hematuria ([facility]) Additional Instructions: PUSH FLUIDS. FOLLOW UP WITH UROLOGY FOR PAINLESS BLOOD IN YOUR URINE. DECREASE SMOKING. RETURN IF WORSE. Forms: Return to Work Referrals: FRANCISCA WEAVER MD [[facility]] - Follow up in 1 week (For follow up of blood in your urine)
[2018-09-25 08:59] VITALS: BP 126/89
== END 2018-09-25 08:59 | disposition home or self-care (01) ==
LOC: ER 05:44
DX: R31.9 Hematuria, unspecified (principal); R51 Headache; R11.2 Nausea with vomiting, unspecified; E78.00 Pure hypercholesterolemia, unspecified; I10 Essential (primary) hypertension; J44.9 Chronic obstructive pulmonary disease, unspecified; F17.200 Nicotine dependence, unspecified, uncomplicated
CPT/HCPCS: 81001; 99283

== ENCOUNTER 2018-09-27 05:07 | Emergency (ER) | payer OTHER ==
--- NOTE | 2018-09-27 09:56 | ER Document Report ---
ED General - General Chief Complaint: Nausea/Vomiting/Diarrhea Stated Complaint: DIAHRREA/VOMITING Time Seen by Provider: 09/27/18 09:50 Notes: Patient presents with nausea vomiting diarrhea. He woke up this morning at 4 AM had one episode of vomiting and 4 episodes of loose stool. No blood no mucus. No belly pain. No fever. No one about to travel. Recent episode of dark urine with some blood microscopic Wesley referred to urology but had back pain yesterday for several seconds but that is now gone. TRAVEL OUTSIDE OF THE [place] IN LAST 30 DAYS: No - Related Data Allergies/Adverse Reactions: No Known Allergies Allergy (Verified 09/27/18 05:11) Past Medical History - Social History Smoking Status: Current Every Day Smoker Family History: Reviewed & Not Pertinent, COPD, DM Patient has suicidal ideation: No Patient has homicidal ideation: No - Past Medical History Cardiac Medical History: Reports: Hx Hypercholesterolemia, Hx Hypertension Pulmonary Medical History: Reports: Hx COPD - sleep apnea-doesn't wear machine, Hx Sleep Apnea Renal/ Medical History: Denies: Hx Peritoneal Dialysis Musculoskeletal Medical History: Reports Hx Musculoskeletal Deformity, Reports Hx Musculoskeletal Trauma Psychiatric Medical History: Reports: Hx Anxiety Past Surgical History: Reports: Hx Abdominal Surgery - hernia repair, Hx Herniorrhaphy, Hx Myringotomy, Hx Orthopedic Surgery - L cervical laminectomies C4-5,5-6,6-7 with micro plates and screws 06/2015 - Immunizations Hx Diphtheria, Pertussis, Tetanus Vaccination: Yes Review of Systems - Review of Systems Notes: REVIEW OF SYSTEMS REVIEW OF SYSTEMS GEN: Denies fever, chills, weight loss positive fatigue. ENT: Denies sore throat, nasal discharge, ear pain EYES: Denies blurry vision, eye pain, discharge CV: Denies chest pain, palpitations, edema RESP: Denies cough, shortness of breath, wheezing GI: vomiting, diarrhea MSK: Resolved back pain SKIN: Denies rash, skin lesions LYMPH: Denies swollen glands/lymph nodes NEURO: Denies headache, focal weakness or numbness, dizziness PSYCH: Denies depression, suicidal or homicidal ideation PHYSICAL EXAMINATION General: No acute distress, well-nourished Head: Atraumatic, normocephalic ENT: Mouth normal, oropharynx moist, no exudates or tonsillar enlargement Eyes: Conjunctiva normal, pupils equal, lids normal Neck: No JVD, supple, no guarding CVS: Normal rate, regular rhythm, no murmurs Resp: No resp distress, equal and normal breath sounds bilaterally GI: Nondistended, soft, no tenderness to palpation, no rebound or guarding Ext: No deformities, no edema, normal range of motion in upper and lower ext Back: No CVA or midline TTP Skin: No rash, warm Lymphatic: No lymphadeopathy noted Neuro: Awake, alert. Face symmetric. GCS 15. Physical Exam - Vital signs Vitals: Temp Pulse Resp BP Pulse Ox 97.8 F 86 18 147/89 H 96 09/27/18 05:13 09/27/18 05:13 09/27/18 05:13 09/27/18 05:13 09/27/18 05:13 Course - Re-evaluation Re-evalutation: 09/27/18 10:02 Well-appearing patient presents with resolved vomiting and diarrhea no abdominal tenderness, had a small amount of back pain yesterday but that is gone so I doubt stone. Does not appear dry and is tolerating p.o. Stable for discharge home with Zofran prescription. I have discussed with the patient there likely diagnosis, aftercare plan, follow-up plans and my usual and customary return precautions. They verbalized understanding of this. - Vital Signs Vital signs: Temp Pulse Resp BP Pulse Ox 97.8 F 86 18 147/89 H 96 09/27/18 05:13 09/27/18 05:13 09/27/18 05:13 09/27/18 05:13 09/27/18 05:13 Critical Care Note - Critical Care Note Total time excluding time spent on procedures (mins): 34 Comments: The above patient is critically ill. Not including procedures, but including direct re-evaluations, speaking with patient and/or consultants, interpreting results, and documenting, I spent the total amount of minute listed listed above on critical care time the above patient is critically ill. Not including procedures, but including direct re-evaluations, speaking with patient and/or consultants, interpreting results, and documenting, I spent the total amount of minute listed listed above on critical care time Discharge - Discharge Clinical Impression: Diarrhea Qualifiers: Diarrhea type: unspecified type Qualified Code(s): R19.7 - Diarrhea, unspecified Nausea & vomiting Qualifiers: Vomiting type: unspecified Vomiting Intractability: non-intractable Qualified Code(s): R11.2 - Nausea with vomiting, unspecified Condition: Good Disposition: HOME, SELF-CARE Instructions: Antinausea Medication ([facility]), Vomiting ([facility]), Diarrhea, Nonspecific ([facility]) Additional Instructions: These continue follow-up with primary care and urology as previously specified Prescriptions: Ondansetron [Zofran Odt 4 mg Tablet] 1 - 2 tab PO Q4H PRN #15 tab.rapdis PRN Reason: For Nausea/Vomiting Forms: Return to Work
[2018-09-27 10:14] VITALS: BP 133/82
== END 2018-09-27 10:30 | disposition home or self-care (01) ==
LOC: ER 05:07
DX: R11.2 Nausea with vomiting, unspecified (principal); R19.7 Diarrhea, unspecified; F17.200 Nicotine dependence, unspecified, uncomplicated; E78.00 Pure hypercholesterolemia, unspecified; I10 Essential (primary) hypertension
CPT/HCPCS: 99283

== ENCOUNTER 2018-11-02 00:07 | Emergency (ER) | payer OTHER ==
--- NOTE | 2018-11-02 00:45 | ER Document Report ---
ED General - General Chief Complaint: Headache Stated Complaint: HEADACHE Time Seen by Provider: 11/02/18 00:30 Primary Care Provider: BRIANA AGARWAL MD [NO LOCAL MD] - Follow up in 3-5 days Notes: Patient is a pleasant 43-year-old male who presents with complaint of headache and feeling weak. Patient says the headache has been intermittent for a month. He says that she when he wakes in the morning. He does have a previous history of neck surgery. Says the pain is at the base of his head on the right side and occurs every day. Currently does not a headache and feels well. Patient also has that is been for a week fatigue. This is been ongoing for approximately month as well. He says that he does have a job that makes him stressed. Says it is possible that the job itself in a stressful job is making him feel fatigued. Currently he says he actually feels well enough fatigue because "I am giving myself energy". He denies having CT scan of his head last 2 years. Denies any weakness or numbness to extremities. No fevers. No vomiting. No other complaints at this time. TRAVEL OUTSIDE OF THE [place] IN LAST 30 DAYS: No - Related Data Allergies/Adverse Reactions: No Known Allergies Allergy (Verified 09/27/18 05:11) Past Medical History - Social History Smoking Status: Current Every Day Smoker Frequency of alcohol use: Occasional Drug Abuse: None Family History: Reviewed & Not Pertinent, COPD, DM - Past Medical History Cardiac Medical History: Reports: Hx Hypercholesterolemia, Hx Hypertension Pulmonary Medical History: Reports: Hx COPD - sleep apnea-doesn't wear machine, Hx Sleep Apnea Renal/ Medical History: Denies: Hx Peritoneal Dialysis Musculoskeletal Medical History: Reports Hx Musculoskeletal Deformity, Reports Hx Musculoskeletal Trauma Psychiatric Medical History: Reports: Hx Anxiety Past Surgical History: Reports: Hx Abdominal Surgery - hernia repair, Hx Herniorrhaphy, Hx Myringotomy, Hx Orthopedic Surgery - L cervical laminectomies C4-5,5-6,6-7 with micro plates and screws 06/2015 - Immunizations Hx Diphtheria, Pertussis, Tetanus Vaccination: Yes Review of Systems - Review of Systems Notes: My Normal Review Basic REVIEW OF SYSTEMS: CONSTITUTIONAL : Denies fever, chills, or sweats. Denies recent illness. EENT: Denies eye, ear, throat, or mouth pain or symptoms. Denies nasal or sinus congestion. RESPIRATORY: Denies cough, cold, or chest congestion. Denies shortness of breath, difficulty breathing, or wheezing. GASTROINTESTINAL: Denies abdominal pain. Denies nausea, vomiting, or diarrhea. GENITOURINARY: Denies difficulty urinating, painful urination, burning, frequency, or blood in urine. MUSCULOSKELETAL: Denies neck or back pain or joint pain or swelling. SKIN: Denies rash or skin lesions. NEUROLOGICAL: Denies altered mental status or loss of consciousness. Intermittent headache. Denies weakness or paralysis or loss of use of either side. Denies problems with gait or speech. Denies sensory or motor loss. ALL OTHER SYSTEMS REVIEWED AND NEGATIVE. Physical Exam - Vital signs Vitals: Temp Pulse BP Pulse Ox 97.4 F 77 144/88 H 98 11/02/18 00:12 11/02/18 00:12 11/02/18 00:12 11/02/18 00:12 - Notes Notes: General Appearance: Well nourished, alert, cooperative, no acute distress, no obvious discomfort. Well-appearing. Vitals: reviewed, See vital signs table. Head: no swelling or tenderness to the head Eyes: PERRL, EOMI, Conjuctiva clear Mouth: No decreasd moisture Neck: Supple, no neck tenderness, No thyromegaly Lungs: No wheezing, No rales, No rhonci, No accessory muscle use, good air exchange bilaterally. Heart: Normal rate, Regular rythm, No murmur, no rub Abdomen: Normal BS, soft, No rigidity, No abdominal tenderness, No guarding, no rebound, no abdominal masses, no organomegaly Extremities: strength 5/5 in all extremities, good pulses in all extremities, no swelling or tenderness in the extremities, no edema. Skin: warm, dry, appropriate color, no rash Neuro: speech clear, oriented x 3, normal affect, responds appropriately to questions. Hernial nerves II through XII are intact. Distal sensation intact. Patient moves all extremities without difficulty. Course - Re-evaluation Re-evalutation: 11/02/18 05:31 Patient's TSH was normal. Reviewed his other blood work from 2 days ago and is all normal. CT scan of the head was obtained as patient has had chronic recurrent headaches now for a month and is felt unwell. CT scan did not show any evidence of mass or bleeding. I do not suspect subarachnoid hemorrhage as the headache is currently gradual onset not sudden onset. Patient has no focal neurologic deficits and is actually headache free at this time. I suspect this headache could be related to stress being that the patient says his job is been very stressful recently and that he is been working very hard. He also mentions there is a history of cervical spine surgery and the headache could also relate to a tension headache due to starting at the base of his occiput. This time for the patient safe to be discharged home. Patient says he is taken to 2 weeks of medical from work and is going to rest and relax. I encouraged him to follow-up with a primary care physician for for reevaluation continued management of his chronic medical problems. Patient requests referral to a neurologist. I will refer him to a local neurologist, Dr. Agarwal. Patient encouraged to return to ER if his worsening of symptoms or has any further concerns. Patient agrees with plan and will be discharged home. Dictation of this chart was performed using voice recognition software; therefore, there may be some unintended grammatical errors. - Vital Signs Vital signs: Temp Pulse Resp BP Pulse Ox 97.8 F 70 18 118/70 96 11/02/18 04:39 11/02/18 04:39 11/02/18 04:39 11/02/18 04:39 11/02/18 04:39 Discharge - Discharge Clinical Impression: Headache Qualifiers: Headache type: unspecified Headache chronicity pattern: episodic headache Intractability: not intractable Qualified Code(s): R51 - Headache Fatigue Qualifiers: Fatigue type: unspecified Qualified Code(s): R53.83 - Other fatigue Condition: Good Disposition: HOME, SELF-CARE Additional Instructions: Your CT scan did not show any evidence of concerning findings. No evidence of large masses or tumors on your scan. No evidence of active bleeding. I suspect your headache could be related to tension headache that is related to stress and your history of surgery on your neck. Your thyroid function was normal. I do not see any obvious evidence of a serious or life threatening cause of your fatigue. I suspect your stress and work environment could be playing a role in your fatigue. Please follow-up with a primary care doctor to get established for management of your chronic care. I have also referred you to the neurologist due to your recurrent headaches just for further work-up and reevaluation. Please return to ER if you have worsening of your symptoms or h ave any further concerns. Forms: Return to Work Referrals: BRIANA AGARWAL MD [NO LOCAL MD] - Follow up in 3-5 days
[2018-11-02 01:34] LABS: FREE T4 (FREE THYROXINE) 1.11 ng/dL (0.78-2.19)
[2018-11-02 01:48] LABS: THYROID STIMULATING HORMONE 3.54 uIU/mL (0.47-4.68)
--- NOTE | 2018-11-02 03:15 | RADIOLOGY REPORT (SQ) ---
EXAM DESCRIPTION: CT HEAD WITHOUT IV CONTRAST COMPLETED DATE/TME: 11/02/2018 00:42 CLINICAL HISTORY: 43 years, Male, recurrent headaches for 1 month COMPARISON: October 31, 2016 Technique: Contiguous axial images of the brain were obtained without the administration of intravenous contrast. Coronal and sagittal reformats obtained and reviewed. This exam was performed according to our departmental dose-optimization program which includes use of Automated Exposure Control, adjustment of the mA and/or kV according to patient size and/or use of iterative reconstruction technique. Findings: Brain: No hemorrhage. No territorial infarct. No mass effect. No herniation. Ventricles: Within normal limits for patient's age. Bones: No acute osseous abnormality. Paranasal sinuses: Unremarkable. Mastoid air cells: Chronic left otomastoiditis.. Soft tissues: No acute abnormality. IMPRESSION: No acute intracranial abnormalities.
[2018-11-02 04:40] VITALS: BP 118/70
== END 2018-11-02 04:46 | disposition home or self-care (01) ==
LOC: ER 00:07
DX: R51 Headache (principal); R53.83 Other fatigue; R53.1 Weakness; F17.200 Nicotine dependence, unspecified, uncomplicated; I10 Essential (primary) hypertension; J44.9 Chronic obstructive pulmonary disease, unspecified
CPT/HCPCS: 36415; 70450; 84439; 84443; 99284

== ENCOUNTER 2018-12-13 08:55 | Emergency (ER) | payer SELFPAY ==
[2018-12-13 09:32] LABS: ABSOLUTE BASOPHILS # (AUTO) 0.1 10^3/uL (0.0-0.2); ABSOLUTE EOSINOPHILS # (AUTO) 0.1 10^3/uL (0.0-0.6); ABSOLUTE LYMPHOCYTES (AUTO) 1.4 10^3/uL (0.5-4.7); ABSOLUTE MONOCYTES (AUTO) 0.7 10^3/uL (0.1-1.4); ABSOLUTE NEUT (AUTO) 5.7 10^3/uL (1.7-8.2); BASOPHILS % (AUTO) 0.7 % (0-2); HEMATOCRIT 49.5 % (37.9-51.0); HEMOGLOBIN 17.1 g/dL (13.5-17.0); LYMPHOCYTES % (AUTO) 17.9 % (13-45); MEAN CORPUSCULAR HEMOGLOBIN 32.6 pg (27.0-33.4); MEAN CORPUSCULAR HGB CONC 34.6 g/dL (32.0-36.0); MEAN CORPUSCULAR VOLUME 94 fl (80-97); MONOCYTES % (AUTO) 8.4 % (3-13); PLATELET COUNT 189 10^3/uL (150-450); RED BLOOD COUNT 5.26 10^6/uL (4.35-5.55); RED CELL DISTRIBUTION WIDTH 13.1 % (11.5-14.0); TOTAL CELLS COUNTED % (AUTO) 100 %; WHITE BLOOD COUNT 7.9 10^3/uL (4.0-10.5)
[2018-12-13 09:50] LABS: ALBUMIN 4.7 g/dL (3.5-5.0); ALKALINE PHOSPHATASE 85 U/L (38-126); ANION GAP 12 (5-19); ASPARTATE AMINO TRANSFERASE 40 U/L (17-59); BILIRUBIN,DIRECT 0.5 mg/dL (0.0-0.4); BILIRUBIN,TOTAL 0.9 mg/dL (0.2-1.3); BLOOD UREA NITROGEN 15 mg/dL (7-20); CALCIUM 9.9 mg/dL (8.4-10.2); CARBON DIOXIDE 22 mmol/L (22-30); CHLORIDE 104 mmol/L (98-107); GLUCOSE 123 mg/dL (75-110); POTASSIUM 4.4 mmol/L (3.6-5.0)
--- NOTE | 2018-12-13 10:02 | RADIOLOGY REPORT (SQ) ---
EXAM DESCRIPTION: CHEST SINGLE VIEW COMPLETED DATE/TIME: 12/13/2018 9:40 am REASON FOR STUDY: SOB COMPARISON: 01/28/2018 EXAM PARAMETERS: NUMBER OF VIEWS: One view. TECHNIQUE: Single frontal radiographic view of the chest acquired. RADIATION DOSE: NA LIMITATIONS: None. FINDINGS: LUNGS AND PLEURA: No opacities, masses or pneumothorax. No pleural effusion. MEDIASTINUM AND HILAR STRUCTURES: No masses. Contour normal. HEART AND VASCULAR STRUCTURES: Heart normal in size. Normal vasculature. BONES: No acute findings. HARDWARE: None in the chest. OTHER: No other significant finding. IMPRESSION: NO ACUTE RADIOGRAPHIC FINDING IN THE CHEST. TECHNICAL DOCUMENTATION: JOB ID: [id number] [employer]- All Rights Reserved Reading location - IP/workstation name: [email or web address]
[2018-12-13 10:05] LABS: AMORPHOUS SEDIMENT,URINE TRACE /HPF; APPEARANCE,URINE CLOUDY; BILIRUBIN,URINE NEGATIVE (NEGATIVE); COLOR,URINE AMBER; GLUCOSE, URINE NEGATIVE (NEGATIVE); KETONES,URINE NEGATIVE (NEGATIVE); LEUKOCYTE ESTERASE,URINE NEGATIVE (NEGATIVE); NITRITE,URINE NEGATIVE (NEGATIVE); PROTEIN,URINE NEGATIVE (NEGATIVE)
[2018-12-13 10:16] LABS: URINE AMPHETAMINES SCREEN NEGATIVE; URINE BARBITURATES SCREEN NEGATIVE; URINE BENZODIAZEPINES SCREEN NEGATIVE; URINE COCAINE SCREEN NEGATIVE; URINE MARIJUANA (THC) SCREEN NEGATIVE; URINE METHADONE SCREEN NEGATIVE; URINE PHENCYCLIDINE SCREEN NEGATIVE
--- NOTE | 2018-12-13 10:44 | RADIOLOGY REPORT (SQ) ---
EXAM DESCRIPTION: CT HEAD WITHOUT COMPLETED DATE/TIME: 12/13/2018 10:34 am REASON FOR STUDY: MOODY COMPARISON: None. TECHNIQUE: Axial images acquired through the brain without intravenous contrast. Images reviewed wi th bone, brain and subdural windows. Additional sagittal and coronal reconstructions were generated. Images stored on PACS. All CT scanners at this facility use dose modulation, iterative reconstruction, and/or weight based d osing when appropriate to reduce radiation dose to as low as reasonably achievable (ALARA). [facility]: Dose Right [facility]: CareDose [facility]: Dose Right [facility]: Teradose 4D [facility]: [employer] RADIATION DOSE: CT Rad equipment meets quality standard of care and radiation dose reduction techniq ues were employed. CTDIvol: 53.2 mGy. DLP: 937 mGy-cm. mGy. LIMITATIONS: None. FINDINGS: VENTRICLES: Normal size and contour. CEREBRUM: No masses. No hemorrhage. No midline shift. No evidence for acute infarction. Normal gra y/white matter differentiation. No areas of low density in the white matter. CEREBELLUM: No masses. No hemorrhage. No alteration of density. No evidence for acute infarction. EXTRAAXIAL SPACES: No fluid collections. No masses. ORBITS AND GLOBE: No intra- or extraconal masses. Normal contour of globe without masses. CALVARIUM: No fracture. PARANASAL SINUSES: No fluid or mucosal thickening. SOFT TISSUES: No mass or hematoma. OTHER: No other significant finding. IMPRESSION: NORMAL BRAIN CT WITHOUT CONTRAST. EVIDENCE OF ACUTE STROKE: NO. COMMENT: Quality ID # [id number]: Final reports with documentation of one or more dose reduction techniques (e.g., Automated exposure control, adjustment of the mA and/or kV according to patient size, use of iterative reconstruction technique) TECHNICAL DOCUMENTATION: JOB ID: [id number] [employer]- All Rights Reserved Reading location - IP/workstation name: [email or web address]
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
[2018-12-13 12:57] VITALS: BP 138/87
--- NOTE | 2018-12-13 14:24 | EKG REPORT ---
SEVERITY:- NORMAL ECG - SINUS RHYTHM : Confirmed by: Dang Awan 13-Dec-2018 14:23:26
== END 2018-12-13 12:57 | disposition home or self-care (01) ==
LOC: ER 08:55
DX: R07.9 Chest pain, unspecified (principal); R51 Headache; R06.02 Shortness of breath; F41.9 Anxiety disorder, unspecified; R20.0 Anesthesia of skin; R11.0 Nausea; F17.200 Nicotine dependence, unspecified, uncomplicated; I10 Essential (primary) hypertension; J44.9 Chronic obstructive pulmonary disease, unspecified
CPT/HCPCS: 36415; 70450; 71045; 80053; 80307; 81001; 83690; 84484; 85025; 93005; 93010; 99285

== ENCOUNTER 2019-03-23 18:51 | Emergency (ER) | payer SELFPAY ==
--- NOTE | 2019-03-23 19:09 | ER Document Report ---
HPI - HPI Patient complains to provider of: Left-sided ear pain Time Seen by Provider: 03/23/19 18:59 Onset: Just prior to arrival Onset/Duration: Sudden Severity: Moderate Pain Level: 3 Context: 44-year-old male with history of ear infections being treated by ENT and is supposed to follow-up with [facility] for surgery presents to the emergency department with complaints of pain when he opens his mouth wide to the area right below his left ear. Denies fever vomiting diarrhea. Patient's looks nontoxic laughing happy no distress. Reports he has been treated with gold dust irrigation in his left ear he forgets why he is being treated with that. Associated Symptoms: None Exacerbated by: Other - Opening his mouth wide Relieved by: Denies Similar symptoms previously: No Recently seen / treated by doctor: No Past Medical History - General Information source: Patient - Social History Smoking Status: Current Every Day Smoker Chew tobacco use (# tins/day): No Frequency of alcohol use: Occasional Drug Abuse: None Lives with: Family Family History: Reviewed & Not Pertinent, COPD, DM Patient has suicidal ideation: No Patient has homicidal ideation: No - Past Medical History Cardiac Medical History: Reports: Hx Hypercholesterolemia, Hx Hypertension Pulmonary Medical History: Reports: Hx COPD - sleep apnea-doesn't wear machine, Hx Sleep Apnea EENT Medical History: Reports: Ears - Numerous surgeries Renal/ Medical History: Denies: Hx Peritoneal Dialysis Musculoskeletal Medical History: Reports Hx Musculoskeletal Deformity, Reports Hx Musculoskeletal Trauma Psychiatric Medical History: Reports: Hx Anxiety Past Surgical History: Reports: Hx Abdominal Surgery - hernia repair, Hx Herniorrhaphy, Hx Myringotomy, Hx Orthopedic Surgery - L cervical laminectomies C4-5,5-6,6-7 with micro plates and screws 06/2015, Other - 2 Ear surgeries due to infection - Immunizations Hx Diphtheria, Pertussis, Tetanus Vaccination: Yes Vertical Provider Document - CONSTITUTIONAL Agree With Documented VS: Yes Exam Limitations: No Limitations General Appearance: WD/WN, No Apparent Distress - INFECTION CONTROL TRAVEL OUTSIDE OF THE [place] IN LAST 30 DAYS: No - HEENT HEENT: Atraumatic, Normocephalic. negative: Conjuctival Injection, Pharyngeal Erythema, Tympanic Membrane Red - No pain to the mastoid area, no erythema no warmth no swelling - NECK Neck: Normal Inspection, Supple. negative: Lymphadenopathy-Left, Lymphadenopathy-Right - RESPIRATORY Respiratory: Breath Sounds Normal, No Respiratory Distress - CARDIOVASCULAR Cardiovascular: Regular Rate, Regular Rhythm - GI/ABDOMEN Gastrointestinal: Abdomen Soft - MUSCULOSKELETAL/EXTREMETIES Musculoskeletal/Extremeties: MONA RASMUSSEN - NEURO Level of Consciousness: Awake, Alert, Appropriate - DERM Integumentary: Warm, Dry Course - Re-evaluation Re-evalutation: 03/23/19 19:08 This 44-year-old male presents to the emergency department with complaints of pain under his left ear. Reports he has had multiple ear surgeries. Also reports he is under the care of ENT right now and is supposed to follow-up with [facility] for surgery to his ears. 03/23/19 19:[address] 03/23/19 19:04 IMPRESSION: No acute findings. Atypical appearance of the left mastoid air cells may represent previous instrumentation; recommend correlation with history. CT completed no mastoiditis. Patient was instructed on importance of follow-up with ENT on Monday. He verbalized understanding to all instructions. Dictation of this chart was performed using voice recognition software; therefore, there may be some unintended grammatical errors. - Vital Signs Vital signs: Temp Pulse Resp BP Pulse Ox 97.8 F 95 18 145/81 H 96 03/23/19 18:56 03/23/19 18:56 03/23/19 18:56 03/23/19 18:56 03/23/19 18:56 - Diagnostic Test Radiology reviewed: Reports reviewed Discharge - Discharge Clinical Impression: left sided mastoid pain Condition: Stable Disposition: HOME, SELF-CARE Additional Instructions: *You have been evaluated for left-sided mastoid pain *Follow up with your ENT Monday for recheck Take Tylenol Motrin as indicated for pain *Return to ED for worsening condition, changes, needs, concerns Monitor your blood pressure. Your blood pressure was elevated today. This may be because you were anxious, in pain or because you need medication. It is important to follow up with your primary care provider for full evaluation. Forms: Elevated Blood Pressure
--- NOTE | 2019-03-23 19:49 | RADIOLOGY REPORT (SQ) ---
EXAM DESCRIPTION: CT ORBIT/SELLA WITHOUT COMPLETED DATE/TIME: 03/23/2019 7:31 pm REASON FOR STUDY: ear pain, hx infections COMPARISON: 12/13/2018 and 11/02/2018 TECHNIQUE: Noncontrasted images through the orbits windowed for bone and soft tissue. Additional co dexter and sagittal reconstructed images reviewed. All images stored on PACS. All CT scanners at this facility use dose modulation, iterative reconstruction, and/or weight based d osing when appropriate to reduce radiation dose to as low as reasonably achievable (ALARA). [facility]: Dose Right [facility]: CareDose [facility]: Dose Right [facility]: Teradose 4D [facility]: [employer] RADIATION DOSE: CT Rad equipment meets quality standard of care and radiation dose reduction techniq ues were employed. CTDIvol: 30.4 mGy. DLP: 378 mGy-cm. mGy. LIMITATIONS: None. FINDINGS: FACIAL BONES: No fracture or bone lesion. ORBITS: Intact. No fracture. Symmetric intact globes and retroorbital soft tissues. PARANASAL SINUSES: Clear. No significant mucosal thickening, mass or fluid. No nasal polyps. Maxilla ry sinus outlets are patent. SOFT TISSUES: No mass or edema. INFERIOR BRAIN: Limited view. No acute findings. OTHER: There is a stable atypical appearance of the left mastoid air cells likely on the basis of pre vious instrumentation; this is retrospectively present on comparison noncontrast head CTs. IMPRESSION: No acute findings. Atypical appearance of the left mastoid air cells may represent prev ious instrumentation; recommend correlation with history. TECHNICAL DOCUMENTATION: JOB ID: [id number] Quality ID # [id number]: Final reports with documentation of one or more dose reduction techniques (e.g., Au tomated exposure control, adjustment of the mA and/or kV according to patient size, use of iterative reconstruction technique) 2010 [employer]- All Rights Reserved Reading location - IP/workstation name: [email or web address]
[2019-03-23 20:37] VITALS: BP 138/78
== END 2019-03-23 20:43 | disposition home or self-care (01) ==
LOC: ER 18:51
DX: H92.02 Otalgia, left ear (principal); F17.200 Nicotine dependence, unspecified, uncomplicated; I10 Essential (primary) hypertension; J44.9 Chronic obstructive pulmonary disease, unspecified
CPT/HCPCS: 70480; 99283

== ENCOUNTER 2019-05-16 18:35 | Emergency (ER) | payer SELFPAY ==
--- NOTE | 2019-05-16 19:30 | ER Document Report ---
HPI - HPI Time Seen by Provider: 05/16/19 19:23 Pain Level: 3 Context: CHIEF COMPLAINT: Numbness and tingling the arms for several months HPI: 44-year-old male presenting for numbness and tingling in the arms for several months. Patient reports history of neck injury several years ago which caused ongoing chronic numbness issues in the left arm. States over the last 2 to 3 months he has noticed increasing numbness and tingling now in the right arm. Denies chest pain shortness of breath. States he has been working with specialists through [facility] but is waiting on referrals. States that he does have some difficulty grasping fine objects with the fingers of the left hand but this is an ongoing problem. Denies new trauma. Denies fevers. ROS: See HPI - all other systems were reviewed and are otherwise negative Constitutional: no fever Eyes: no drainage, no blurred vision ENT: no runny nose, no sore throat Cardiovascular: no chest pain Resp: no SOB, no cough GI: no vomiting, no diarrhea, no abdominal pain : no dysuria Integumentary: no rash Allergy: no hives Musculoskeletal: no extremity pain or swelling Neurological: numbness/tingling, no weakness MEDICATIONS: I agree with the patient medications as charted by the RN. ALLERGIES: I agree with the allergies as charted by the RN. PAST MEDICAL HISTORY/PAST SURGICAL HISTORY: Reviewed and agree as charted by RN. SOCIAL HISTORY: Reviewed and agree as charted by RN. FAMILY HISTORY: No significant familial comorbid conditions directly related to patient complaint EXAM: Reviewed vital signs as charted by RN. CONSTITUTIONAL: Alert and oriented and responds appropriately to questions. Well-appearing; well-nourished HEAD: Normocephalic; atraumatic EYES: PERRL; Conjunctivae clear, sclerae non-icteric ENT: normal nose; no rhinorrhea; moist mucous membranes; pharynx without lesions noted, no uvula edema or deviation, no tonsillar hypertrophy, phonation normal NECK: Supple without meningismus; non-tender; no cervical lymphadenopathy, no masses CARD: RRR; no murmurs, no clicks, no rubs, no gallops; symmetric distal pulses RESP: Normal chest excursion without splinting or tachypnea; breath sounds clear and equal bilaterally; no wheezes, no rhonchi, no rales, pulse oximetry ABD/GI: Normal bowel sounds; non-distended; soft, non-tender, no rebound, no guarding; no palpable organomegaly or masses. BACK: The back appears normal and is non-tender to palpation, there is no CVA tenderness EXT: Normal ROM in all joints; non-tender to palpation; no cyanosis, no effusions, no edema SKIN: Normal color for age and race; warm; dry; good turgor; no acute lesions noted NEURO: Moves all extremities equally; Motor function intact. Subjectively decreased sensation in the bilateral upper shoulders, left arm to touch. [employer] are equal 5/5 strength PSYCH: The patient's mood and manner are appropriate. Grooming and personal hygiene are appropriate. MDM: 44-year-old male with chronic numbness tingling in the arms from cervical stenosis and disc issues from prior injury. Does not have specific new symptoms in the last week has had ongoing symptoms over the last several months that concerned him and brought him to the emergency department today. Discussed at length with the patient. He would prefer imaging studies do not feel emergent MRI is warranted at this time. Will obtain CT imaging to evaluate prior surgical site and hardware. If no acute findings will discharge home on Voltaren, steroids, referral back to specialist at [facility] - REPRODUCTIVE Reproductive: DENIES: : Past Medical History - Social History Smoking Status: Current Every Day Smoker Family History: Reviewed & Not Pertinent, COPD, DM Patient has suicidal ideation: No Patient has homicidal ideation: No - Past Medical History Cardiac Medical History: Reports: Hx Hypercholesterolemia, Hx Hypertension Pulmonary Medical History: Reports: Hx COPD - sleep apnea-doesn't wear machine, Hx Sleep Apnea Renal/ Medical History: Denies: Hx Peritoneal Dialysis Musculoskeletal Medical History: Reports Hx Musculoskeletal Deformity, Reports Hx Musculoskeletal Trauma Psychiatric Medical History: Reports: Hx Anxiety Past Surgical History: Reports: Hx Abdominal Surgery - hernia repair, Hx Herniorrhaphy, Hx Myringotomy, Hx Orthopedic Surgery - L cervical laminectomies C4-5,5-6,6-7 with micro plates and screws 06/2015, Other - 2 Ear surgeries due to infection - Immunizations Hx Diphtheria, Pertussis, Tetanus Vaccination: Yes Vertical Provider Document - INFECTION CONTROL TRAVEL OUTSIDE OF THE [place] IN LAST 30 DAYS: No Course - Re-evaluation Re-evalutation: 05/16/19 21:09 CT imaging does not show any new fractures. Will discharge home follow-up with his specialists at outside facility - Vital Signs Vital signs: Temp Pulse Resp BP Pulse Ox 98.0 F 83 18 165/89 H 98 05/16/19 19:21 05/16/19 19:21 05/16/19 19:21 05/16/19 19:21 05/16/19 19:21 Discharge - Discharge Clinical Impression: Radiculopathy, cervical Condition: Stable Disposition: HOME, SELF-CARE Instructions: Radiculopathy (OM) Additional Instructions: Take the medications as prescribed. Follow-up closely with your specialists at [facility] for further evaluation and treatment call tomorrow for appt Prescriptions: Prednisone [Deltasone 20 mg Tablet] 2 tab PO DAILY 5 Days tablet Diclofenac Sodium [Voltaren 50 Mg Tablet.] 50 mg PO BID #20 tablet.
[2019-05-16] MEDS ORDERED: PREDNISONE 20 MG TABLET PO ONE (21:04)
--- NOTE | 2019-05-16 21:09 | RADIOLOGY REPORT (SQ) ---
EXAM DESCRIPTION: CT scan of the cervical spine without contrast CLINICAL HISTORY: 44 years Male; numbness TECHNIQUE: Noncontrast cervical spine CT with sagittal and coronal reconstructions. All CT scans at this facility use dose modulation, iterative reconstruction, and/or weight based dosing when appropriate to reduce radiation dose to as low as reasonably achievable. COMPARISON: MRI of the cervical spine June 21, 2017 FINDINGS: General: Cervical spine is visualized from the skull base through T1 . There is straightening of the normal cervical lordosis. No listhesis. Vertebral body heights are preserved. Subtle disc height narrowing is noted predominantly at C4-5. There is minimal multilevel endplate spondylosis. Unilateral fracture fixation is present on the left at C4, C5 and C6. This predominantly involves placement of small screw plate assemblies across the lamina. There is right-sided lamina fractures which have healed at C4 and C5. There is persistent visualization of fracture on both the right and left side of the ring at C6. There is no fracture of the cervical spine. The skull base is intact. Mastoid air cell opacification is present on the left. Soft tissues of the neck are unremarkable. Lung apices are clear.. C1-2:Unremarkable C2-3: Unremarkable C3-4: Unremarkable C4-5: Mild endplate spondylosis and uncovertebral hypertrophy may results in mild neural foraminal narrowing. C5-6: Unremarkable C6-7: Unremarkable C7-T1: Unremarkable IMPRESSION: 1. Fracture stabilization at C4, C5 and C6. At C4 and C5 fractures have healed. There is persistent visualization fracture line at C6. 2. No acute fractures identified. 3. No definitive foraminal narrowing or spinal stenosis.
[2019-05-16] MEDS: KETOROLAC TROMETHAMINE 60 MG/2 ML SDV IM ONE ×2 (21:13→21:17)
[2019-05-16 21:30] VITALS: BP 160/86
== END 2019-05-16 21:30 | disposition home or self-care (01) ==
LOC: ER 18:35
DX: M54.12 Radiculopathy, cervical region (principal); M48.02 Spinal stenosis, cervical region; S19.9XXS Unspecified injury of neck, sequela; X58.XXXS Exposure to other specified factors, sequela; F17.200 Nicotine dependence, unspecified, uncomplicated; I10 Essential (primary) hypertension; J44.9 Chronic obstructive pulmonary disease, unspecified; Z98.890 Other specified postprocedural states
CPT/HCPCS: 72125; J7512; 99283; J1885

== ENCOUNTER 2019-08-12 14:43 | Emergency (ER) | payer SELFPAY ==
[2019-08-12 14:48] VITALS: BP 130/84
--- NOTE | 2019-08-12 15:18 | ER Document Report ---
ED Headache - General Chief Complaint: Headache >24 hrs old Stated Complaint: HEADACHE Time Seen by Provider: 08/12/19 15:05 Primary Care Provider: FRANCISCA MYERS MD [Primary Care Provider] - Follow up as needed Mode of Arrival: Ambulatory Information source: Patient Notes: 4-year-old male presented to ED for complaint of a headache today temporal area that is come and gone since Monday. He states it is not sudden is intermittent there is no nausea vomiting there is no neurological deficits. He does smoke 1/2 pack a day drinks socially he does have a history of neck problems with neck surgery in 2016. He states he took some Tylenol before coming to the emergency room now and his pain is now a 2 out of 5. TRAVEL OUTSIDE OF THE [place] IN LAST 30 DAYS: No - HPI Patient complains to provider of: Headache Patient reports: Other Onset: Other Onset was: Gradual - Monday Timing: Better Quality of pain: Achy Severity: Mild Pain Level: 2 Associated symptoms: Other - Headache. denies: Confusion, Dizzy, Double/blurred vision, Lightheaded, Motion sickness, Motor/sensory loss to leg, Nausea/v omiting, Tingling/numb sensation, Trouble walking Similar symptoms previously: Yes Recently seen / treated by doctor: No - Related Data Allergies/Adverse Reactions: No Known Allergies Allergy (Verified 08/12/19 15:05) Past Medical History - General Information source: Patient - Social History Smoking Status: Current Every Day Smoker Cigarette use (# per day): Yes - Half pack per day Chew tobacco use (# tins/day): No Smoking Education Provided: Yes - 4 minutes Frequency of alcohol use: Social Drug Abuse: None Lives with: Family Family History: Reviewed & Not Pertinent, COPD, DM Patient has homicidal ideation: No - Past Medical History Cardiac Medical History: Reports: Hx Hypercholesterolemia, Hx Hypertension Pulmonary Medical History: Reports: Hx COPD - sleep apnea-doesn't wear machine, Hx Sleep Apnea EENT Medical History: Reports: None Neurological Medical History: Reports: None Endocrine Medical History: Reports: None Renal/ Medical History: Reports: None Malignancy Medical History: Reports None GI Medical History: Reports: None Musculoskeletal Medical History: Reports Hx Musculoskeletal Deformity, Reports Hx Musculoskeletal Trauma Skin Medical History: Reports None Psychiatric Medical History: Reports: Hx Anxiety Traumatic Medical History: Reports: None Infectious Medical History: Reports: None Past Surgical History: Reports: Hx Abdominal Surgery - hernia repair, Hx Herniorrhaphy, Hx Myringotomy, Hx Orthopedic Surgery - L cervical laminectomies C4-5,5-6,6-7 with micro plates and screws 06/2015, Other - 2 Ear surgeries due to infection - Immunizations Hx Diphtheria, Pertussis, Tetanus Vaccination: Yes Review of Systems - Review of Systems Constitutional: No symptoms reported EENT: No symptoms reported Cardiovascular: No symptoms reported Respiratory: No symptoms reported Gastrointestinal: No symptoms reported Genitourinary: No symptoms reported Male Genitourinary: No symptoms reported Musculoskeletal: No symptoms reported Skin: No symptoms reported Hematologic/Lymphatic: No symptoms reported Neurological/Psychological: Headaches -: Yes All other systems reviewed and negative Physical Exam - Vital signs Vitals: Temp Pulse Resp BP Pulse Ox 97.8 F 95 20 130/84 H 99 08/12/19 14:47 08/12/19 14:47 08/12/19 14:47 08/12/19 14:47 08/12/19 14:47 Interpretation: Normal - General General appearance: Appears well, Alert - HEENT Head: Normocephalic, Atraumatic Eyes: Normal Pupils: PERRL - Respiratory Respiratory status: No respiratory distress Chest status: Nontender Breath sounds: Normal Chest palpation: Normal - Cardiovascular Rhythm: Regular Heart sounds: Normal auscultation Murmur: No - Abdominal Inspection: Normal Distension: No distension Bowel sounds: Normal Tenderness: Nontender Organomegaly: No organomegaly - Back Back: Normal, Nontender - Extremities General upper extremity: Normal inspection, Nontender, Normal color, Normal ROM, Normal temperature General lower extremity: Normal inspection, Nontender, Normal color, Normal ROM, Normal temperature, Normal weight bearing. No: Brisa's sign - Neurological Neuro grossly intact: Yes Cognition: Normal Orientation: AAOx4 [place] Coma Scale Eye Opening: Spontaneous [place] Coma Scale Verbal: Oriented [place] Coma Scale Motor: Obeys Commands [place] Coma Scale Total: 15 Speech: Normal Cranial nerves: Normal Cerebellar coordination: Normal Motor strength normal: LUE, RUE, LLE, RLE Additional motor exam normals: Equal cartridge loader Babinski reflex: Normal (flexor plantar) Sensory: Normal - Psychological Associated symptoms: Normal affect, Normal mood - Skin Skin Temperature: Warm Skin Moisture: Dry Skin Color: Normal Course - Re-evaluation Re-evalutation: 08/12/19 15:20 After performing a Medical Screening Examination, I estimate there is LOW risk for ACUTE GLAUCOMA, TEMPORAL ARTERITIS, MENINGITIS, INCRANIAL HEMORRHAGE, or ISCHEMIC STROKE thus I consider the discharge disposition reasonable. I have reevaluated this patient multiple times and no significant life threatening changes are noted. The patient and I have discussed the diagnosis and risks, and we agree with discharging home with close follow-up with the understanding that symptoms and presentations can change. We also discussed returning to the Emergency Department immediately if new or worsening symptoms occur. We have discussed the symptoms which are most concerning (e.g., changing or worsening symptoms, new numbness or weakness, vomiting, fever) that necessitate immediate return. - Vital Signs Vital signs: Temp Pulse Resp BP Pulse Ox 97.8 F 95 20 130/84 H 99 08/12/19 15:05 08/12/19 14:47 08/12/19 14:47 08/12/19 14:47 08/12/19 14:47 Discharge - Discharge Clinical Impression: Headache Qualifiers: Headache type: unspecified Headache chronicity pattern: unspecified pattern Intractability: not intractable Qualified Code(s): R51 - Headache Condition: Stable Disposition: HOME, SELF-CARE Additional Instructions: HEADACHE: The physician does not feel that the headache you are experiencing has a serious underlying cause. Most headaches are due to emotional stress, with resultant muscle tension (tension headache). Occasionally, headaches are secondary to changes in the blood vessels of the scalp (vascular headache and migraine headache). Sometimes, a headache is the first symptom of another developing illness, such as a viral infection. You have no evidence of stroke, bleeding, meningitis, or other serious cause of your headache. The treatment of headaches varies with the severity and cause of the pain. Not all headaches need pain shots. In fact, there is evidence that using narcotics for headaches may make them worse in the long run. The physician will determine the therapy that's in your best interest. If you develop a fever, if the headache is different from any you've previously experienced, or if the headache progressively worsens, then call your physician at once or go to the emergency room. USE OF DIPHENHYDRAMINE: Diphenhydramine (Benadryl) is an antihistamine and has been recommended to help treat your headache and to prevent side effects of other medications used to treat headaches. The medication can be repeated four times daily. Age Elixir (12.5 mg/tsp) 25 mg pill adult 1-2 tabs Antihistamines may cause drowsiness, especially with the first dose. Do not operate machinery or drive while under the effects of the medication. Do not combine the medication with alcohol, or with any other medication without talking to your doctor. ANTINAUSEA MEDICATION: You have been given a medication to suppress nausea and vomiting. This type of medication can be given as a shot, pill, or suppository. It will usually last for many hours. Pills and shots usually last six to eight hours, suppositories last about 12 hours. For the typical illness, only one or two doses of the medication may be necessary. Mild lightheadedness may occur. This type of medicine can cause drowsiness. Do not drive or operate dangerous machinery while under its influence. Do not mix with alcohol. See your doctor at once if you have muscle spasms or tightness, or uncontrollable motions (particularly of the neck, mouth, or jaw). Persistent vomiting or severe lightheadedness should also be evaluated by the physician. COMPAZINE FOR HEADACHE: You have received prescription for headaches, usingCompazine. This treatment is dramatically successful in relieving the headache in about 50 per cent of cases. When it works, it provides a rapid method of eliminating the headache without resorting to narcotics (and the problems associated with them). Most patients still feel fully alert after the Compazine, but others may be slightly drowsy. It's best not to drive or work with machinery for six to eight hours. Do not take alcohol or other medication unless you discuss it with the xuan walters. If you develop tightness and spasms in your muscles, especially the neck and tongue, you should return. This is a side effect which can be treated. Ibuprofen Ibuprofen is an excellent, safe drug for pain control. In addition, it has potent antiinflammatory effects which are beneficial, especially in the treatment of injuries, arthritis, or tendonitis. It's best to take ibuprofen with food. Persons with ulcer disease or allergy to aspirin should notify their physician of this before taking ibuprofen. Take the medication exactly as prescribed. Don't take additional doses unless instructed to do so by your doctor. If you develop wheezing, shortness of breath, hives, faintness, stomach pain, vomiting, or dark black stools, return for re-evaluation at once. FOLLOW-UP CARE: If you have been referred to a physician for follow-up care, call the physicians office for an appointment as you were instructed or within the next two days. If you experience worsening or a significant change in your symptoms, notify the physician immediately or return to the Emergency Department at any time for re-evaluation. Call your doctor tomorrow and schedule a follow-up appointment for outpatient evaluation of your headaches. You have no neurological deficits today. He states the headache is getting better with the Tylenol you took at home. Prescriptions: Prochlorperazine Maleate [Compazine 10 mg Tablet] 10 mg PO ASDIR PRN #10 tablet PRN Reason: Forms: Elevated Blood Pressure, Smoking Cessation Education Referrals: FRANCISCA MYERS MD [Primary Care Provider] - Follow up as needed
== END 2019-08-12 15:19 | disposition home or self-care (01) ==
LOC: ER 14:43
DX: R51 Headache (principal); F17.210 Nicotine dependence, cigarettes, uncomplicated; E78.00 Pure hypercholesterolemia, unspecified; I10 Essential (primary) hypertension
CPT/HCPCS: 99283; 99406

== ENCOUNTER 2019-09-03 19:44 | Emergency (ER) | payer SELFPAY ==
--- NOTE | 2019-09-03 20:32 | ER Document Report ---
ED Medical Screen (RME) - General Chief Complaint: Neck and Upper Back Pain Stated Complaint: NECK,ARM,LEG PAIN Time Seen by Provider: 09/03/19 20:23 Primary Care Provider: FRANCISCA MYERS MD [Primary Care Provider] - Follow up as needed Mode of Arrival: Ambulatory Information source: Patient Notes: 44-year-old male presented to ED for complaint of pain that went from his neck to his left arm this evening. He was seen in 2016 and had hinges placed in his spinal column C4-5 and 6 due to a stenosis and cord compression. He states in 2018 he had another injury and went and saw Dr. Jhaveri because he was having weakness and dropping things with his left arm. He states today he mowed his yard he states he stopped multiple times because he just does not have the energy to do it all months and when he finished mowing his yard he went to take his clothes off and he had a pain from his l neck down to his left arm to his hand. He states it was very sharp like when they did a throat injection and touched the nerve. He states he thought maybe he could get a hot shower and it would feel better so when he was drying his hair he had a similar incident exce pt this time the pain went from his his neck to his left arm and his left leg. He states this scared him so he came to the emergency room to have this checked out. He states he is not having any pain at this moment. Patient is alert oriented respirations regular and unlabored speaking in full sentences. He had his surgery in [address] [facility] [address] Jhaveri. Patient denies any new injuries or falls today. I have greeted and performed a rapid initial assessment of this patient. A comprehensive ED assessment and evaluation of the patient, analysis of test results and completion of medical decision making process will be conducted by an additional ED providers. TRAVEL OUTSIDE OF THE [place] IN LAST 30 DAYS: No - Related Data Allergies/Adverse Reactions: No Known Allergies Allergy (Verified 09/03/19 20:20) Past Medical History - Past Medical History Cardiac Medical History: Reports: Hx Hypercholesterolemia, Hx Hypertension Pulmonary Medical History: Reports: Hx COPD - sleep apnea-doesn't wear machine, Hx Sleep Apnea Renal/ Medical History: Denies: Hx Peritoneal Dialysis Musculoskeltal Medical History: Reports Hx Musculoskeletal Deformity, Reports Hx Musculoskeletal Trauma Psychiatric Medical History: Reports: Hx Anxiety Past Surgical History: Reports: Hx Abdominal Surgery - hernia repair, Hx Herniorrhaphy, Hx Myringotomy, Hx Orthopedic Surgery - L cervical laminectomies C4-5,5-6,6-7 with micro plates and screws 06/2015, Other - 2 Ear surgeries due to infection - Immunizations Hx Diphtheria, Pertussis, Tetanus Vaccination: Yes Physical Exam - Vital signs Vitals: Temp Pulse Resp BP Pulse Ox 98.5 F 97 18 136/100 H 99 09/03/19 19:49 09/03/19 19:49 09/03/19 19:49 09/03/19 19:49 09/03/19 19:49 Course - Vital Signs Vital signs: Temp Pulse Resp BP Pulse Ox 98.5 F 97 18 136/100 H 99 09/03/19 19:49 09/03/19 19:49 09/03/19 19:49 09/03/19 19:49 09/03/19 19:49 Doctor's Discharge - Discharge Referrals: FRANCISCA MYERS MD [Primary Care Provider] - Follow up as needed
--- NOTE | 2019-09-03 21:16 | RADIOLOGY REPORT (SQ) ---
EXAM DESCRIPTION: CT CERVICAL SPINE WITHOUT IV CONTRAST COMPLETED DATE/TME: 09/03/2019 20:36 CLINICAL HISTORY: 44 years Male Pain from neck down to hand COMPARISON: None. TECHNIQUE: Contiguous axial images obtained through the cervical spine without IV contrast. Coronal and sagittal reformatted images obtained. This exam was performed according to our department optimization program which includes automated exposure control, adjustment of the mA and/or kv according to patient size and/or use of iterative reconstruction technique. FINDINGS: Vertebral body alignment is unremarkable. No acute fractures. Abnormal soft tissue in the left mastoid air cells and middle ear with partial destruction of the mastoid air cells. This appears unchanged when compared to prior exams. Plate and screw fixation of the lamina on the left at C4-C5 and C6. Healed fractures of the right C4 and C5 laminae with ununited fracture at C6 which is stable. Severe bilateral neural foraminal stenosis at C4-5, C5-6 and moderate stenosis at C6-7. IMPRESSION: No acute cervical spinal fracture is identified.
--- NOTE | 2019-09-03 21:19 | RADIOLOGY REPORT (SQ) ---
EXAM DESCRIPTION: CT HEAD WITHOUT IV CONTRAST COMPLETED DATE/TME: 09/03/2019 20:36 CLINICAL HISTORY: Sharp pain from head neck down to foot COMPARISON: December 13, 2018 TECHNIQUE: Contiguous axial images of the brain were obtained without the administration of intravenous contrast. This exam was performed according to our departmental dose-optimization program, which includes automated exposure control, adjustment of the mA and/or kV according to patient size and/or use of iterative reconstruction technique. FINDINGS: There is no acute intracranial hemorrhage or mass effect. Ventricular system is within normal limits. There is adequate srivastava-white matter differentiation. There is no skull fracture. Abnormal opacification of the left middle ear could be secondary to prior surgery versus infectious /inflammatory process. The left ear ossicles were not visualized. There is evidence of prior surgery at the left mastoid bone. These findings are unchanged compared with the prior exam. IMPRESSION: No acute intracranial abnormalities.
--- NOTE | 2019-09-04 00:50 | ER Document Report ---
ED General - General Chief Complaint: Neck Pain < 24hrs old Stated Complaint: NECK,ARM,LEG PAIN Time Seen by Provider: 09/03/19 20:23 Primary Care Provider: FRANCISCA MYERS MD [Primary Care Provider] - Follow up as needed Mode of Arrival: Ambulatory TRAVEL OUTSIDE OF THE [place] IN LAST 30 DAYS: No - HPI Notes: This is a 44-year-old gentleman with a history of cervical spinal stenosis status post laminectomy who presents to the emergency department for evaluation of pain out of his left arm. He states that he has had this pain in the past. He has chronic numbness in his left hand, and has had a evaluation for the fact that his knee seems to have weakening. He had laminectomy performed in 2016 and was released from neurosurgery. He states that he feels that his function has decreased, and he is [id number]. He states today he was able to mow his lawn. He could only work for a few minutes at a time. Just after completing that he had pain that was sharp and electrical, down his entire left arm. He went to get in the shower, thinking that hot water would be helpful. He states that shortly after that he developed the same pain down his left arm and his left leg. He has chronic neck pain. He rates it a 2 out of 10, he he states it was worsened earlier. He denies any bowel or bladder incontinence, no saddle anesthesia, no focal numbness or weakness. - Related Data Allergies/Adverse Reactions: No Known Allergies Allergy (Verified 09/03/19 20:20) Home Medications: None Past Medical History - General Information source: Patient - Social History Smoking Status: Current Every Day Smoker Frequency of alcohol use: Occasional Drug Abuse: None Family History: Reviewed & Not Pertinent, COPD, DM Patient has homicidal ideation: No - Past Medical History Cardiac Medical History: Reports: Hx Hypercholesterolemia, Hx Hypertension Pulmonary Medical History: Reports: Hx COPD - sleep apnea-doesn't wear machine, Hx Sleep Apnea EENT Medical History: Reports: Ears - States "needs surgery to fix them" but cannot clarify Neurological Medical History: Reports: Hx Migraine Renal/ Medical History: Denies: Hx Peritoneal Dialysis Musculoskeletal Medical History: Reports Hx Musculoskeletal Deformity, Reports Hx Musculoskeletal Trauma Psychiatric Medical History: Reports: Hx Anxiety Past Surgical History: Reports: Hx Abdominal Surgery - hernia repair, Hx Herniorrhaphy, Hx Myringotomy, Hx Orthopedic Surgery - L cervical laminectomies C4-5,5-6,6-7 with micro plates and screws 06/2015, Other - 2 Ear surgeries due to infection - Immunizations Hx Diphtheria, Pertussis, Tetanus Vaccination: Yes Review of Systems - Review of Systems Musculoskeletal: See HPI Neurological/Psychological: See HPI -: Yes All other systems reviewed and negative Physical Exam - Vital signs Vitals: Temp Pulse Resp BP Pulse Ox 98.5 F 97 18 136/100 H 99 09/03/19 19:49 09/03/19 19:49 09/03/19 19:49 09/03/19 19:49 09/03/19 19:49 - Notes Notes: Vital signs reviewed, please refer to chart. Head is normocephalic, atraumatic. Pupils equal round, reactive to light. Oral mucosa moist, uvula midline. Examination of the spine yields a well-healed surgical scar from lower cervical to upper thoracic spine. He has paraspinal musculature tenderness noted throughout the cervical and thoracic spine with associated spasm. Strength is 4+ out of 5 bilateral upper extremities. He has 2+ brachial radialis reflexes bilaterally, 2+ biceps on the right, 1+ biceps on the left. Neurovascularly intact distally. Examination of lower extremities yields negative straight leg raise bilaterally. Strength is +5-5 bilateral lower extremities. Heart is regular rate and rhythm. Lungs are clear to auscultation bilaterally. Abdomen is soft, nontender, normoactive bowel sounds throughout. Extremities without cyanosis, clubbing. Posterior calves are nontender. Peripheral pulses are equal. Skin is warm and dry. Patient is awake, alert, neurological exam is nonfocal. Course - Re-evaluation Re-evalutation: 09/04/19 00:52 Patient presents to the emergency department for evaluation. He has known cervical spine disease. He has known weakness in his left hand. He is actually seeking out disability and Medicaid at this time because of these problems. He states his pain was worsened but only momentarily, and it radiated into his left leg. I explained to the patient that I cannot find a clear etiology for this pain today. He is not showing any red flag symptoms. His work-up here did not show anything emergent. At this point his pain is back to baseline. I will go ahead and send him home with close follow-up. He is to return to the ED with worsening. - Vital Signs Vital signs: Temp Pulse Resp BP Pulse Ox 97.9 F 80 18 148/97 H 97 09/03/19 22:49 09/03/19 22:49 09/03/19 19:49 09/03/19 22:49 09/03/19 22:49 Discharge - Discharge Clinical Impression: Cervical radiculopathy Condition: Stable Disposition: HOME, SELF-CARE Instructions: Radiculopathy ([facility]) Additional Instructions: Follow-up with your primary care provider. You may wish to seek out a second opinion in regards to your pain and weakness. Return to the emergency department with worsening or new concerning symptoms of any sort. Referrals: FRANCISCA MYERS MD [Primary Care Provider] - Follow up as needed
[2019-09-04 01:06] VITALS: BP 135/95
== END 2019-09-04 01:13 | disposition home or self-care (01) ==
LOC: ER 19:44
DX: M54.12 Radiculopathy, cervical region (principal); M54.2 Cervicalgia; G89.29 Other chronic pain; M79.602 Pain in left arm; R20.0 Anesthesia of skin; M62.81 Muscle weakness (generalized); M79.605 Pain in left leg; F17.200 Nicotine dependence, unspecified, uncomplicated; I10 Essential (primary) hypertension; J44.9 Chronic obstructive pulmonary disease, unspecified
CPT/HCPCS: 70450; 72125; 99283

== ENCOUNTER 2019-11-15 21:18 | Emergency (ER) | payer SELFPAY ==
--- NOTE | 2019-11-15 23:18 | ER Document Report ---
HPI - HPI Patient complains to provider of: Headache, ear pain Time Seen by Provider: 11/15/19 23:10 Pain Level: 2 Context: 44-year-old male presents to the emergency room finding of a headache, neck pain, and right ear pressure for the past 2 days. Patient states that he took Tylenol earlier today and his head and neck pain have resolved. No trauma or head injury. History of recurrent bilateral ear infections. No recent swimming or flying. No fevers. Eyes any nausea, vomiting, denies worst headache of his life. No sudden thunderclap. Associated Symptoms: None Exacerbated by: Denies Relieved by: Other - Tylenol Similar symptoms previously: Yes - History of recurrent ear infections Recently seen / treated by doctor: No - ROS Systems Reviewed and Negative: Yes All other systems reviewed and negative - CONSTITUTIONAL Constitutional: DENIES: Fever - EENT EENT: REPORTS: Ear Pain - NEURO Neurology: REPORTS: Headache - REPRODUCTIVE Reproductive: DENIES: : - MUSCULOSKELETAL Musculoskeletal: REPORTS: Neck Pain - DERM Skin Color: Normal Skin Problems: None Past Medical History - General Information source: Patient - Social History Smoking Status: Current Every Day Smoker Family History: Reviewed & Not Pertinent, COPD, DM - Past Medical History Cardiac Medical History: Reports: Hx Hypercholesterolemia, Hx Hypertension Pulmonary Medical History: Reports: Hx COPD - sleep apnea-doesn't wear machine, Hx Sleep Apnea Neurological Medical History: Reports: Hx Migraine Renal/ Medical History: Denies: Hx Peritoneal Dialysis Musculoskeletal Medical History: Reports Hx Musculoskeletal Deformity, Reports Hx Musculoskeletal Trauma Psychiatric Medical History: Reports: Hx Anxiety Past Surgical History: Reports: Hx Abdominal Surgery - hernia repair, Hx Herniorrhaphy, Hx Myringotomy, Hx Orthopedic Surgery - L cervical laminectomies C4-5,5-6,6-7 with micro plates and screws 06/2015, Other - 2 Ear surgeries due to infection - Immunizations Hx Diphtheria, Pertussis, Tetanus Vaccination: Yes Vertical Provider Document - CONSTITUTIONAL Agree With Documented VS: Yes Exam Limitations: No Limitations - INFECTION CONTROL TRAVEL OUTSIDE OF THE [place] IN LAST 30 DAYS: No - HEENT HEENT: Atraumatic, Normocephalic, PERRLA. negative: Tympanic Membrane Bulging Notes: Tympanic membrane is dull and retracted. There is clear fluid noted behind the right tympanic membrane. Moderate scarring from previous ear infections noted. No erythema or swelling noted to the tympanic membrane. Right outer ear canal without erythema or swelling. Left outer ear canal with moderate scarring noted. No swelling noted to the tympanic membrane. - NECK Neck: Normal Inspection, Supple Notes: Non-tender to the cervical spine. No obvious deformity noted. Full range of motion with flexion, extension and lateral movement to the neck. - RESPIRATORY Respiratory: Breath Sounds Normal, No Respiratory Distress - CARDIOVASCULAR Cardiovascular: Regular Rate, Regular Rhythm, No Murmur - NEURO Level of Consciousness: Awake, Alert, Appropriate Motor/Sensory: No Motor Deficit, No Sensory Deficit - DERM Integumentary: Warm, Dry, No Rash Course - Re-evaluation Re-evalutation: 11/15/19 23:15 Patient stated during triage that his headache and neck pain have fully resolved.. States he really just wants to be seen for his ear. Reviewed diagnosis with patient. Counseled on fluid to the ear but no signs of a ear infection. Will discharge home on nasal spray. Outpatient follow-up with primary care physician if not improving in 2 to 3 days. Patient was given strict return to the emergency room guidelines. Return for any new or worsening symptoms. All questions were answered. Patient verbalized understanding and agrees with plan of care. 11/16/19 01:03 - Vital Signs Vital signs: Temp Pulse Resp BP Pulse Ox 99.0 F 86 18 151/92 H 98 11/15/19 21:18 11/15/19 21:18 11/15/19 21:18 11/15/19 21:18 11/15/19 21:18 Discharge - Discharge Clinical Impression: Eustachian tube dysfunction Qualifiers: Laterality: right Qualified Code(s): H69.81 - Other specified disorders of Eustachian tube, right ear Condition: Stable Disposition: HOME, SELF-CARE Instructions: Ear Barotrauma ([facility]) Additional Instructions: Use Tylenol as prescribed. Can take Tylenol and or Motrin as needed for pain. Outpatient follow-up primary care physician if not improving in 2 to 3 days. Return to the emergency room for any new or worsening symptoms. Prescriptions: Fluticasone Propionate [Flonase Nasal Bonner 50 Mcg/Bonner 16 gm] 2 spray NASL DAILY #1 inhaler Referrals: FRACNISCA MYERS MD [Primary Care Provider] - Follow up as needed
[2019-11-15 23:29] VITALS: BP 145/92
== END 2019-11-15 23:20 | disposition home or self-care (01) ==
LOC: ER 21:18
DX: H69.81 Other specified disorders of Eustachian tube, right ear (principal); R51 Headache; H92.01 Otalgia, right ear; F17.200 Nicotine dependence, unspecified, uncomplicated; E78.00 Pure hypercholesterolemia, unspecified; I10 Essential (primary) hypertension
CPT/HCPCS: 99282

== ENCOUNTER 2019-12-17 06:24 | Emergency (ER) | payer SELFPAY ==
--- NOTE | 2019-12-17 07:18 | ER Document Report ---
ED General - General Chief Complaint: Tremor Stated Complaint: SHORTNESS OF BREATH Time Seen by Provider: 12/17/19 07:05 Primary Care Provider: FRANCISCA MYERS MD [Primary Care Provider] - Follow up as needed Notes: HPI: 44-year-old male who presents today stating this morning he woke up and after 1/2-hour felt some "shakiness" to bilateral legs and arms. He also felt a "gas-like feeling" without pain to the abdomen. He denies to me any chest pain, shortness of breath, calf pain or leg swelling, fevers, vomiting, or diarrhea. No recent trips or travel. Patient states that he sees his 11-year-old daughter intermittently and she was to go home today so he started to get some anxiety yesterday. He states he drank 3 beers. He denies any drug abuse. ROS: See HPI All other review of systems reviewed and otherwise negative Reviewed vital signs and nursing note as charted by RN. PHYSICAL EXAM: CONSTITUTIONAL: Alert and oriented and responds appropriately to questions. Well-appearing; well-nourished HEAD: Normocephalic; atraumatic EYES: PERRL; sclerae non-icteric ENT: Normal nose; no rhinorrhea; moist mucous membranes; pharynx without lesions noted NECK: Supple without meningismus; non-tender; no cervical lymphadenopathy, no masses CARD: Regular rate and rhythm; no murmurs; symmetric distal pulses RESP: Normal chest excursion without splinting or tachypnea; breath sounds clear and equal bilaterally; no wheezes, no rhonchi, no rales ABD/GI: Normal bowel sounds; non-distended; soft, non-tender to deep palpation of all 4 quadrants of the abdomen BACK: The back appears normal and is non-tender to palpation EXT: Normal ROM in all joints; non-tender to palpation; no edema SKIN: No acute lesions noted NEURO: CN 2-12 intact; 5/5 bilateral upper and lower extremity strength with sensation intact to light touch PSYCH: The patient's mood and manner are appropriate. Grooming and personal hygiene are appropriate. TRAVEL OUTSIDE OF THE [place] IN LAST 30 DAYS: No - Related Data Allergies/Adverse Reactions: No Known Allergies Allergy (Verified 12/17/19 07:52) Past Medical History - Social History Smoking Status: Current Every Day Smoker Family History: Reviewed & Not Pertinent, COPD, DM - Past Medical History Cardiac Medical History: Reports: Hx Hypercholesterolemia, Hx Hypertension Pulmonary Medical History: Reports: Hx COPD - sleep apnea-doesn't wear machine, Hx Sleep Apnea Neurological Medical History: Reports: Hx Migraine Renal/ Medical History: Denies: Hx Peritoneal Dialysis Musculoskeletal Medical History: Reports Hx Musculoskeletal Deformity, Reports Hx Musculoskeletal Trauma Psychiatric Medical History: Reports: Hx Anxiety Past Surgical History: Reports: Hx Abdominal Surgery - hernia repair, Hx Herniorrhaphy, Hx Myringotomy, Hx Orthopedic Surgery - L cervical laminectomies C4-5,5-6,6-7 with micro plates and screws 06/2015, Other - 2 Ear surgeries due to infection - Immunizations Hx Diphtheria, Pertussis, Tetanus Vaccination: Yes Physical Exam - Vital signs Vitals: Temp Pulse Resp BP Pulse Ox 97.8 F 101 H 16 165/88 H 98 12/17/19 06:47 12/17/19 06:47 12/17/19 06:47 12/17/19 06:47 12/17/19 06:47 Course - Re-evaluation Re-evalutation: 12/17/19 07:17 Given the above history and physical examination in this well-appearing male who denies to me any and all chest pain and shortness of breath, with no focal logical deficits, increased anxiety secondary to the above discussion, I will obtain a cardiac panel including an x-ray of the chest and EKG. I do have a low pretest probability for ACS, PE, or dissection. Patient is oriented x4 and has no obvious asterixis, sclera icterus, or other signs of alcohol withdrawal/abuse. 12/17/19 08:10 EKG shows a heart rate of 77, normal sinus rhythm, normal axis, no ST elevation or depression. 12/17/19 08:40 Labs and imaging as recorded. Patient still denies any pain. No change in neurologic exam. Patient will be discharged home with strict return precautions and follow-up with the primary care physician. Patient feels very comfortable with this plan. - Vital Signs Vital signs: Temp Pulse Resp BP Pulse Ox 97.8 F 101 H 12 157/104 H 98 12/17/19 06:47 12/17/19 06:47 12/17/19 08:07 12/17/19 08:07 12/17/19 08:07 - Laboratory Result Diagrams: 12/17/19 07:37 12/17/19 07:37 Laboratory results interpreted by me: 12/17/19 07:37 Hgb 17.6 H MCH 33.9 H MCHC 36.3 H Discharge - Discharge Clinical Impression: Occasional tremors Condition: Good Disposition: HOME, SELF-CARE Additional Instructions: Come back immediately for any chest pain, fever, weakness or numbness, worsening tremors, or any other acute problems. Please follow-up with your primary care physician for reassessment as discussed. Referrals: FRANCISCA MYERS MD [Primary Care Provider] - Follow up as needed
--- NOTE | 2019-12-17 07:45 | RADIOLOGY REPORT (SQ) ---
CLINICAL HISTORY: 3; sob COMPARISON: 12/13/2018. TECHNIQUE: XR CHEST 1 VIEW 12/17/2019 7:10 AM CDT FINDINGS: Cardiac silhouette is normal in size. Lungs are clear without consolidation, atelectasis, mass or edema. There is no pleural effusion. There is no pneumothorax. There are no acute osseous findings. IMPRESSION: Clear lungs.
[2019-12-17 07:48] LABS: ABSOLUTE BASOPHILS # (AUTO) 0.1 10^3/uL (0.0-0.2); ABSOLUTE EOSINOPHILS # (AUTO) 0.1 10^3/uL (0.0-0.6); ABSOLUTE MONOCYTES (AUTO) 0.7 10^3/uL (0.1-1.4); ABSOLUTE NEUT (AUTO) 5.9 10^3/uL (1.7-8.2); BASOPHILS % (AUTO) 0.7 % (0-2); EOSINOPHILS % (AUTO) 1.5 % (0-6); HEMATOCRIT 48.6 % (37.9-51.0); HEMOGLOBIN 17.6 g/dL (13.5-17.0); LYMPHOCYTES % (AUTO) 22.7 % (13-45); MEAN CORPUSCULAR HEMOGLOBIN 33.9 pg (27.0-33.4); MEAN CORPUSCULAR HGB CONC 36.3 g/dL (32.0-36.0); MEAN CORPUSCULAR VOLUME 93 fl (80-97); MONOCYTES % (AUTO) 8.2 % (3-13); PLATELET COUNT 198 10^3/uL (150-450); SEGMENTED NEUTROPHILS % (AUTO) 66.9 % (42-78); TOTAL CELLS COUNTED % (AUTO) 100 %; WHITE BLOOD COUNT 8.9 10^3/uL (4.0-10.5)
[2019-12-17 08:18] LABS: ANION GAP 11 (5-19); BLOOD UREA NITROGEN 14 mg/dL (7-20); CALCIUM 9.6 mg/dL (8.4-10.2); CARBON DIOXIDE 22 mmol/L (22-30); CHLORIDE 107 mmol/L (98-107); GLUCOSE 109 mg/dL (75-110); POTASSIUM 4.3 mmol/L (3.6-5.0)
--- NOTE | 2019-12-17 08:51 | EKG REPORT ---
SEVERITY:- NORMAL ECG - SINUS RHYTHM PROBABLE LVH : Confirmed by: Morgan Mares MD 17-Dec-2019 08:50:58
[2019-12-17 08:52] VITALS: BP 167/96
== END 2019-12-17 08:53 | disposition home or self-care (01) ==
LOC: ER 06:24
DX: R25.1 Tremor, unspecified (principal); R06.02 Shortness of breath; F17.200 Nicotine dependence, unspecified, uncomplicated; E78.00 Pure hypercholesterolemia, unspecified; I10 Essential (primary) hypertension; J44.9 Chronic obstructive pulmonary disease, unspecified
CPT/HCPCS: 36415; 71045; 80048; 84484; 85025; 93005; 93010; 99285

== ENCOUNTER 2019-12-17 12:01 | Emergency (ER) | payer SELFPAY ==
--- NOTE | 2019-12-17 12:34 | ER Document Report ---
ED Medical Screen (RME) - General Chief Complaint: Chest Pain Stated Complaint: CHEST PAIN Time Seen by Provider: 12/17/19 12:29 Primary Care Provider: FRANCISCA MYERS MD [Primary Care Provider] - Follow up as needed Mode of Arrival: Ambulatory Information source: Patient Notes: 44-year-old male presented to ED for complaint of shaking "cramping in his left breast "and high blood pressure. He states he was seen here and discharged this morning for similar symptoms. He told him that he had indigestion and he was sent home. He states he has not had anything to eat or drink since he was seen here seen here and he is having the symptoms again. He states he normally smokes 1/2 pack a day but has not even had a half a cigarette today he drinks once a week and has not had anything to drink today and does not use any illicit drugs. He would like to be reexamined. I have greeted and performed a rapid initial assessment of this patient. A comprehensive ED assessment and evaluation of the patient, analysis of test results and completion of medical decision making process will be conducted by an additional ED providers. TRAVEL OUTSIDE OF THE [place] IN LAST 30 DAYS: No - Related Data Allergies/Adverse Reactions: No Known Allergies Allergy (Verified 12/17/19 12:25) Home Medications: denies Past Medical History - Social History Chew tobacco use (# tins/day): No Frequency of alcohol use: Occasional Drug Abuse: None - Past Medical History Cardiac Medical History: Reports: Hx Hypercholesterolemia, Hx Hypertension Pulmonary Medical History: Reports: Hx COPD - sleep apnea-doesn't wear machine, Hx Sleep Apnea Neurological Medical History: Reports: Hx Migraine Renal/ Medical History: Denies: Hx Peritoneal Dialysis Musculoskeltal Medical History: Reports Hx Musculoskeletal Deformity, Reports Hx Musculoskeletal Trauma Psychiatric Medical History: Reports: Hx Anxiety Past Surgical History: Reports: Hx Abdominal Surgery - hernia repair, Hx Hernio rrhaphy, Hx Myringotomy, Hx Orthopedic Surgery - L cervical laminectomies C4-5,5-6,6-7 with micro plates and screws 06/2015, Other - 2 Ear surgeries due to infection - Immunizations Hx Diphtheria, Pertussis, Tetanus Vaccination: Yes Physical Exam - Vital signs Vitals: Temp Pulse Resp BP Pulse Ox 98.4 F 95 16 180/93 H 100 12/17/19 12:05 12/17/19 12:05 12/17/19 12:05 12/17/19 12:05 12/17/19 12:05 Course - Vital Signs Vital signs: Temp Pulse Resp BP Pulse Ox 98.4 F 95 16 152/84 H 100 12/17/19 12:05 12/17/19 12:05 12/17/19 12:05 12/17/19 12:30 12/17/19 12:05 Doctor's Discharge - Discharge Referrals: FRANCISCA MYERS MD [Primary Care Provider] - Follow up as needed
[2019-12-17 12:48] LABS: ABSOLUTE LYMPHOCYTES (AUTO) 1.4 10^3/uL (0.5-4.7); ABSOLUTE MONOCYTES (AUTO) 0.5 10^3/uL (0.1-1.4); BASOPHILS % (AUTO) 0.5 % (0-2); EOSINOPHILS % (AUTO) 0.2 % (0-6); HEMOGLOBIN 17.4 g/dL (13.5-17.0); LYMPHOCYTES % (AUTO) 14.2 % (13-45); MEAN CORPUSCULAR HEMOGLOBIN 33.5 pg (27.0-33.4); MEAN CORPUSCULAR HGB CONC 35.5 g/dL (32.0-36.0); MEAN CORPUSCULAR VOLUME 94 fl (80-97); MONOCYTES % (AUTO) 5.2 % (3-13); PLATELET COUNT 197 10^3/uL (150-450); RED BLOOD COUNT 5.19 10^6/uL (4.35-5.55); RED CELL DISTRIBUTION WIDTH 13.1 % (11.5-14.0); SEGMENTED NEUTROPHILS % (AUTO) 79.9 % (42-78); TOTAL CELLS COUNTED % (AUTO) 100 %
[2019-12-17 13:20] LABS: NT PRO BNP 49 pg/mL (<125)
[2019-12-17 13:32] LABS: TROPONIN I < 0.012 ng/mL
--- NOTE | 2019-12-17 13:44 | RADIOLOGY REPORT (SQ) ---
EXAM DESCRIPTION: CHEST 2 VIEWS IMAGES COMPLETED DATE/TIME: 12/17/2019 1:32 pm REASON FOR STUDY: Chest pain again COMPARISON: 12/17/2019 EXAM PARAMETERS: NUMBER OF VIEWS: two views TECHNIQUE: Digital Frontal and Lateral radiographic views of the chest acquired. RADIATION DOSE: NA LIMITATIONS: none FINDINGS: LUNGS AND PLEURA: There is increased pulmonary vascular congestion not seen on the earlier study. No pulmonary edema is present. MEDIASTINUM AND HILAR STRUCTURES: No masses or contour abnormalities. HEART AND VASCULAR STRUCTURES: Heart normal size. No evidence for failure. BONES: No acute findings. HARDWARE: None in the chest. OTHER: No other significant finding. IMPRESSION: Increased pulmonary vascular congestion compared to the earlier study. No surekha pulmona ry edema. TECHNICAL DOCUMENTATION: JOB ID: [id number] 2010 [employer]- All Rights Reserved Reading location - IP/workstation name: [email or web address]
--- NOTE | 2019-12-17 15:09 | ER Document Report ---
ED General - General Chief Complaint: Chest Pain Stated Complaint: CHEST PAIN Time Seen by Provider: 12/17/19 12:29 Primary Care Provider: DESIREE RIVERA MD [ACTIVE STAFF] - Follow up as needed FRANCISCA MYERS MD [Primary Care Provider] - Follow up as needed Mode of Arrival: Ambulatory Notes: 44-year-old male history of smoking presents with left chest pain x2 days. Patient says he woke up yesterday morning and felt a pinching cramping pain in his lower left breast/chest without radiation without associated symptoms aggravated by certain movements without any prior episodes. Patient says that he is able to exert himself without any chest pain or any other symptoms. Patient denies trauma although says he has been taking an engine repair course that may have caused an injury. Patient denies any recent travel, lower extremity edema, DVT/PE history in self or family, exogenous estrogen, alcohol or other drug use, exertional chest pain, cardiac history, hypertension, hyperlipidemia, diabetes, family history, fever, cough, myalgia, sick contacts, dizziness, syncope, cancer history, bleeding diatheses, anticoagulation. Previous chart says patient has history of hypertension hyperlipidemia COPD and sleep apnea but patient is confused by this being present in his chart and den ies all of his medical issues, unknown what source was. TRAVEL OUTSIDE OF THE [place] IN LAST 30 DAYS: No - Related Data Allergies/Adverse Reactions: No Known Allergies Allergy (Verified 12/17/19 12:25) Home Medications: denies Past Medical History - General Information source: Patient, [facility] Records - Social History Smoking Status: Current Every Day Smoker Chew tobacco use (# tins/day): No Frequency of alcohol use: Occasional Drug Abuse: None Family History: Reviewed & Not Pertinent, COPD, DM Patient has homicidal ideation: No Neurological Medical History: Reports: Hx Migraine Renal/ Medical History: Denies: Hx Peritoneal Dialysis Musculoskeletal Medical History: Reports Hx Musculoskeletal Deformity, Reports Hx Musculoskeletal Trauma Psychiatric Medical History: Reports: Hx Anxiety Past Surgical History: Reports: Hx Abdominal Surgery - hernia repair, Hx Herniorrhaphy, Hx Myringotomy, Hx Orthopedic Surgery - L cervical laminectomies C4-5,5-6,6-7 with micro plates and screws 06/2015, Other - 2 Ear surgeries due to infection - Immunizations Hx Diphtheria, Pertussis, Tetanus Vaccination: Yes Review of Systems - Review of Systems Notes: REVIEW OF SYSTEMS: CONSTITUTIONAL : Denies fever, chills, or sweats. EENT: Denies recent cold/sinus symptoms, denies throat pain CARDIOVASCULAR: + chest pain, -SERINA RESPIRATORY: Denies cough, denies shortness of breath. GASTROINTESTINAL: Denies abdominal pain, nausea/vomiting. GENITOURINARY: Denies difficulty urinating, painful urination. FEMALE GENITOURINARY: Denies abnormal vaginal bleeding, vaginal discharge. MUSCULOSKELETAL: Denies neck pain, back pain. SKIN: Denies rash or skin lesions. HEMATOLOGIC : Denies easy bruising or bleeding. LYMPHATIC: Denies swollen, enlarged glands. NEUROLOGICAL: Denies headache, denies change in gait. PSYCHIATRIC: Denies anxiety or stress or depression. Physical Exam - Vital signs Vitals: Temp Pulse Resp BP Pulse Ox 98.4 F 95 16 180/93 H 100 12/17/19 12:05 12/17/19 12:05 12/17/19 12:05 12/17/19 12:05 12/17/19 12:05 - Notes Notes: PHYSICAL EXAMINATION: GENERAL: Very well-appearing, well-nourished middle-aged man appearing stated age sitting up in stretcher with pleasant affect, talkative, with no visible signs of discomfort and in no acute distress. HEAD: Atraumatic, normocephalic. EYES: Pupils equal round and appropriate constriction, sclera anicteric, conjunctiva are normal. ENT: nares patent, moist mucous membranes. NECK: Normal range of motion, supple without lymphadenopathy LUNGS: Breath sounds clear to auscultation bilaterally and equal. No wheezes rales or rhonchi. HEART: Regular rate and rhythm with very faint diastolic murmur over mitral area CHEST: No chest tenderness, normal inspection, no breast masses, no edema, no bony deformity no erythema, no rash ABDOMEN: Soft, nontender, no guarding, no masses, no CVAT EXTREMITIES: Normal range of motion, no pitting or edema. No cyanosis. NEUROLOGICAL: Awake, alert, conversing appropriately, moves all extremities spontaneously. PSYCH: Normal mood, normal affect. SKIN: Warm, Dry, normal turgor, no rashes or lesions noted. Course - Re-evaluation Re-evalutation: 12/17/19 15:27 Very well patient Patient with history only of smoking without any other cardiac risk factors presents to ED with continued mild soreness in left lower chest. Patient says that he did not have any worsening symptoms since he left and only returned because he thought that pain was going to have gone away when he was discharged from the ED but the pain was still present. Patient story is very low suspicion for ACS. Patient has no PE risk factors but given on his prior visit today he was borderline tachycardic I obtain d-dimer. D-dimer appropriate to rule out PE in this patient as he is low Wells score and d-dimer was negative. Patient given extensive education as to following up with histotechnician, informed of mild murmur which may be related to his symptoms but is very likely incidental. Patient repeat troponin negative. Repeat chest x-ray read as increased vascular congestion from previous x-ray but on my personal review of these x-rays this appears to be secondary to underexposed film on repeat x-ray. BNP remains normal. No signs of COVID-19 infection. Gave patient extensive instruction on need to follow-up with PCP and histotechnician, blood pressure was elevated in ED mildly but will need to have blood pressure rechecked in the office. Gave patient extensive return to ED precautions for any worsening symptoms or new symptoms which she demonstrated understanding of. Patient given a copy of all results and instructed to bring them when he follows up with his PCP and histotechnician. Patient to trial ibuprofen until he follows up, given instructions to DC if he has any GI discomfort. No breast masses on exam and pain below margin of breast but will instruct patient to discuss mammography with PCP. - Vital Signs Vital signs: Temp Pulse Resp BP Pulse Ox 98.4 F 95 20 178/95 H 96 12/17/19 12:05 12/17/19 12:05 12/17/19 16:01 12/17/19 16:01 12/17/19 16:01 - Laboratory Result Diagrams: 12/17/19 12:35 Laboratory results interpreted by me: 12/17/19 12:35 Hgb 17.4 H MCH 33.5 H Seg Neutrophils % 79.9 H - EKG Interpretation by Me Additional EKG results interpreted by me: 12/18/19 02:16 Heart rate 96, sinus rhythm, no significant ST elevations or depressions, no significant T wave abnormalities, borderline prolonged QT Discharge - Discharge Clinical Impression: Murmur Chest pain Qualifiers: Chest pain type: unspecified Qualified Code(s): R07.9 - Chest pain, unspecified Disposition: HOME, SELF-CARE Instructions: Chest Pain of Unclear Cause ([facility]) Additional Instructions: Follow-up with your primary doctor and histotechnician within 1 week. Have your blood pressure repeated at the primary doctor's office. Your blood pressure was 152/84 in the emergency department. Discuss with your primary doctor whether you should have a mammogram. You had a slight murmur on my exam which she should follow-up with the histotechnician. Bring all of your test results with you when you follow-up with your primary doctor and histotechnician. If you should have any worsening pain, trouble breathing, dizziness, fainting, fever, cough, lower leg swelling, abdominal pain, bloody stool or black stool, vomiting, or an y other worsening or alarming symptoms return to the emergency department immediately. Prescriptions: Ibuprofen [Ibu] 600 mg PO Q6HP PRN #20 tablet PRN Reason: Referrals: FRANCISCA MYERS MD [Primary Care Provider] - Follow up as needed DESIREE RIVERA MD [ACTIVE STAFF] - Follow up as needed
[2019-12-17] MEDS ORDERED: IBUPROFEN 600 MG TABLET PO ONE (15:31)
[2019-12-17 16:12] VITALS: BP 178/95
--- NOTE | 2019-12-18 09:42 | EKG REPORT ---
SEVERITY:- BORDERLINE ECG - SINUS RHYTHM LVH BORDERLINE PROLONGED QT INTERVAL : Confirmed by: Morgan Mares MD 18-Dec-2019 09:41:53
== END 2019-12-17 16:21 | disposition home or self-care (01) ==
LOC: ER 12:01
DX: R01.1 Cardiac murmur, unspecified (principal); R07.9 Chest pain, unspecified; F17.200 Nicotine dependence, unspecified, uncomplicated
CPT/HCPCS: 36415; 71046; 82550; 83735; 83880; 84443; 84484; 85379; 93005; 93010; 99285

== ENCOUNTER 2019-12-21 23:53 | Emergency (ER) | payer SELFPAY ==
[2019-12-22 00:32] LABS: ABSOLUTE EOSINOPHILS # (AUTO) 0.1 10^3/uL (0.0-0.6); ABSOLUTE LYMPHOCYTES (AUTO) 2.2 10^3/uL (0.5-4.7); ABSOLUTE MONOCYTES (AUTO) 0.8 10^3/uL (0.1-1.4); ABSOLUTE NEUT (AUTO) 7.3 10^3/uL (1.7-8.2); BASOPHILS % (AUTO) 0.3 % (0-2); EOSINOPHILS % (AUTO) 0.9 % (0-6); HEMATOCRIT 48.7 % (37.9-51.0); HEMOGLOBIN 17.2 g/dL (13.5-17.0); LYMPHOCYTES % (AUTO) 21.1 % (13-45); MEAN CORPUSCULAR HEMOGLOBIN 33.9 pg (27.0-33.4); MEAN CORPUSCULAR HGB CONC 35.3 g/dL (32.0-36.0); MEAN CORPUSCULAR VOLUME 96 fl (80-97); MONOCYTES % (AUTO) 7.4 % (3-13); PLATELET COUNT 207 10^3/uL (150-450); RED BLOOD COUNT 5.08 10^6/uL (4.35-5.55); RED CELL DISTRIBUTION WIDTH 13.1 % (11.5-14.0); SEGMENTED NEUTROPHILS % (AUTO) 70.3 % (42-78); TOTAL CELLS COUNTED % (AUTO) 100 %; WHITE BLOOD COUNT 10.4 10^3/uL (4.0-10.5)
[2019-12-22] MEDS ORDERED: LIDOCAINE 2% VISCOUS SOLN 15 ML UDCUP PO ONE (01:08)
[2019-12-22] MEDS ORDERED: METOCLOPRAMIDE HCL ORAL SOLN 10 MG/10 ML UDCUP PO ONE (01:09)
[2019-12-22] MEDS ORDERED: MAG HYDROX/AL HYDROX/SIMETH SUSP 30 ML UDCUP PO ONE (01:09)
--- NOTE | 2019-12-22 01:11 | ER Document Report ---
ED General - General Chief Complaint: Chest Pain Stated Complaint: CHEST PAIN Time Seen by Provider: 12/22/19 00:57 Primary Care Provider: FRANCISCA MYERS MD [Primary Care Provider] - Follow up as needed TRAVEL OUTSIDE OF THE [place] IN LAST 30 DAYS: No - HPI Context: This is a 44-year-old male who presents complaining of chest pain. Patient has had several trips to the emergency department with the same chief complaint. Patient was actually seen here twice on the eighth of this month which is approximately 4 days ago, once with a chief complaint of shortness of breath and the second time with a chief complaint of chest pain. Both evaluations here in the ED were essentially unremarkable. Patient states his most recent episode of chest pain started today around 1:00 in the afternoon. Patient states he was not really doing anything when the pain started. However, the patient states that he ate 80 sub-sandwich approximately 1 hour prior to the onset of symptoms. He localizes the discomfort as being inferior to his pectoralis on the left side and states he also has somewhat of a bubbling sensation with that. Patient describes the pain as burning and sharp and intermittent. Patient states the pain eventually went away after taking some Motrin but came back this evening around 2200 hrs. the patient states that the last time his chest pain started it was approximately 6:00 in the morning, he was drinking coffee. The patient states that he had had ribs for dinner the night before. Patient denies any prior history of gastritis, reflux disease, peptic ulcer. Patient states his symptoms have never been treated with a "GI cocktail." Patient states he is a smoker but denies other medical problems. Patient denies any prior diagnosed cardiac history. Patient denies any exacerbating factors in terms of his pain and other than the use of Motrin denies any alleviating factors. Associated symptoms: Other - See HPI Exacerbated by: Other - See HPI Relieved by: Other - See HPI Similar symptoms previously: Yes Recently seen / treated by doctor: Yes - Related Data Allergies/Adverse Reactions: No Known Allergies Allergy (Verified 12/17/19 12:25) Home Medications: motrin Past Medical History - General Information source: Patient - Social History Smoking Status: Current Every Day Smoker Chew tobacco use (# tins/day): No Frequency of alcohol use: Occasional Drug Abuse: None Family History: Reviewed & Not Pertinent, COPD, DM Patient has suicidal ideation: No Patient has homicidal ideation: No - Past Medical History Cardiac Medical History: Reports: Hx Hypercholesterolemia, Hx Hypertension Pulmonary Medical History: Reports: Hx COPD - sleep apnea-doesn't wear machine, Hx Sleep Apnea Neurological Medical History: Reports: Hx Migraine Renal/ Medical History: Denies: Hx Peritoneal Dialysis Musculoskeletal Medical History: Reports Hx Musculoskeletal Deformity, Reports Hx Musculoskeletal Trauma Psychiatric Medical History: Reports: Hx Anxiety Past Surgical History: Reports: Hx Abdominal Surgery - hernia repair, Hx Herniorrhaphy, Hx Myringotomy, Hx Orthopedic Surgery - L cervical laminectomies C4-5,5-6,6-7 with micro plates and screws 06/2015, Other - 2 Ear surgeries due to infection - Immunizations Hx Diphtheria, Pertussis, Tetanus Vaccination: Yes Review of Systems - Review of Systems Constitutional: No symptoms reported EENT: No symptoms reported Cardiovascular: Chest pain Respiratory: No symptoms reported Gastrointestinal: No symptoms reported Genitourinary: No symptoms reported Male Genitourinary: No symptoms reported Musculoskeletal: No symptoms reported Skin: No symptoms reported Hematologic/Lymphatic: No symptoms reported Neurological/Psychological: No symptoms reported -: Yes All other systems reviewed and negative Physical Exam - Vital signs Vitals: Temp Resp 98.6 F 10 L 12/22/19 00:09 12/22/19 00:09 - Notes Notes: CONSTITUTIONAL [Vital signs reviewed, Patient appears comfortable, Alert and oriented X 3, Normal stature.] HEAD [Atraumatic, Normocephalic.] EYES [Eyes are normal to inspection, No discharge from eyes, Extraocular muscles intact, Sclera are normal, Conjunctiva are normal.] NECK [Normal ROM, No jugular venous distention, No meningeal signs, no carotid bruit.] RESPIRATORY CHEST [Chest is nontender, Breath sounds normal, No respiratory distress.] CARDIOVASCULAR [RRR, No murmurs, Normal S1 S2, No rub, No gallop.] ABDOMEN [Abdomen is nontender, No pulsatile masses, No other masses, Bowel sounds normal, No distension, No peritoneal signs, No hernias.] BACK [There is no CVA Tenderness, There is no tenderness to palpation, Normal inspection.] UPPER EXTREMITY [Inspection normal, No cyanosis, No clubbing, No edema, 2+ radial pulses.] LOWER EXTREMITY [Inspection normal, No cyanosis, No clubbing, No edema, No calf tenderness, 2+ femoral pulses.] NEURO [No focal motor deficits, No focal sensory deficits, Speech normal.] SKIN [Skin is warm, Skin is dry, Skin is normal color.] LYMPHATIC [No adenopathy in neck.] PSYCHIATRIC [Normal affect. ] Course - Re-evaluation Re-evalutation: 12/22/19 02:45 Patient states his pain is completely resolved after receiving the GI cocktail. Results of ED MSE discussed with patient. Results of ED MSE also discussed with patient's Nell by phone at 0245 hrs. all questions were answered prior to discharge. Emergency signs and symptoms, reasons to return to the emergency department discussed with patient and patient's significant other. - Vital Signs Vital signs: Temp Pulse Resp BP Pulse Ox 98.6 F 16 142/91 H 98 12/22/19 00:09 12/22/19 02:01 12/22/19 02:01 12/22/19 02:01 - Laboratory Result Diagrams: 12/22/19 00:13 12/22/19 00:13 Laboratory results interpreted by me: 12/22/19 12/22/19 00:13 00:13 Hgb 17.2 H MCH 33.9 H Creatine Kinase 51 L - Diagnostic Test Radiology reviewed: Reports reviewed - EKG Interpretation by Me Additional EKG results interpreted by me: 12/22/19 01:22 EKG obtained on 12/22/2019 at 00 05 hours was interpreted by this MD. Findings: Normal sinus rhythm, rate 73, normal axis, ND intervals are within normal limits, P waves proceed QRS complexes, QRS complexes appear narrow, QTc interval was within normal limits, there are no obvious patterns of ST segment elevation or depression present to suggest acute myocardial ischemia or infarction. This EKG is compared to prior EKG done 12/17/2019. Gross morphology is similar and there do not appear to be any acute changes present on the current EKG. Impression: Normal sinus rhythm with nonspecific ST segments. 12/22/19 01:29 Discharge - Discharge Clinical Impression: Gastritis Qualifiers: Gastritis type: unspecified gastritis Chronicity: unspecified Gastritis bleedin g: presence of bleeding unspecified Qualified Code(s): K29.70 - Gastritis, unspecified, without bleeding Condition: Stable Disposition: HOME, SELF-CARE Additional Instructions: Return to the Emergency Department without delay if any worse. Purchase some Zegerid from your local drugstore or [facility] and use as directed. The other medication you can use is four 20mg famotidine tablets (generic Pepcid) if you have an episode of gastritis and have forgotten to take your Zegerid. HOME CARE INSTRUCTIONS & INFORMATION: Thank you for choosing us for your m edical needs. We hope you're satisfied with the care you received. After you leave, you must properly care for your problem and, at the same time, observe its progress. Any condition can change. Some illnesses can change rapidly over hours or days. If your condition worsens, return to the Emergency Department or see your physician promptly. ABOUT YOUR X-RAYS AND EKG'S: If you had an EKG or X-rays taken, they have been read by the Emergency Physician. The X-rays and EKG's will also be read by a Radiologist or [employer] Division Manager within 24 hours. If discrepancies are noted, you will be notified by telephone. Please be certain the ED has a correct telephone number & address where you can be reached. Also, realize that some fractures or abnormalities do not show up on initial X-rays. If your symptoms continue, see your physician. ABOUT YOUR LABORATORY TEST: If you had laboratory tests, the results have been reviewed by the Emergency Physician. Some test results (for example cultures) may not be available for several days. You will be contacted if any test result shows you need additional treatment. Please be certain the ED has a correct telephone number and address where you can be reached. ABOUT YOUR MEDICATIONS: You will receive instructions on how to take your medicine on the prescription label you receive. Additional information may be provided by the Pharmacy. If you have questions afterwards, call the ED for clarification or further instructions. Some prescribed medications may cause drowsiness. Do not perform tasks such as driving a car or operating machinery without consulting your Pharmacist. If you feel you need a refill of pain medication, your condition will need re-evaluation. Please do not call for a refill of any medication. ABOUT YOUR SIGNATURE: Signature of this document acknowledges to followin. Understanding that you received emergency treatment and that you may be released before al medical problems are known or treated. Please be certain the ED has a correct phone number & address where you can be reached. 2. Acknowledgement that you will arrange for follow-up care as recommended. 3. Authorization for the Emergency Physician to provide information to your follow-up Physician in order to maximize your care. AT ANY TIME, IF YOUR SYMPTOMS CHANGE SIGNIFICANTLY OR WORSEN OR YOU DEVELOP NEW SYMPTOMS, RETURN TO THE EMERGENCY DEPARTMENT IMMEDIATELY FOR RE-EVALUATION. OUR GOAL IS TO PROVIDE EXCELLENT MEDICAL CARE! WE HOPE THAT WE HAVE MET YOUR EXPECTATIONS DURING YOUR EMERGENCY DEPARTMENT VISIT AND THAT YOU FEEL YOU HAVE RECEIVED EXCELLENT CARE! Gastritis You have an inflammation of the stomach called gastritis. This commonly causes upper abdominal pain, nausea, and vomiting. In severe cases, bleeding of the stomach lining can occur. Gastritis can be caused by bacteria or viruses, alcohol, or stomach-irritating drugs. Begin with sips of clear liquids. Take increasing amounts of fluid over the first 24 hours. Then start small amounts of bland foods (such as dry toast, applesauce, mashed potato). Gradually resume your usual diet. You should take antacids every two hours until the pain has subsided. Acid-suppressing drugs may be prescribed as well. Avoid aspirin, caffeine, tobacco, and alcohol. If the abdominal pain worsens, or there is evidence of major bleeding in the stomach (such as black, tarry stool, bloody or black vomit, or lightheadedness), you should return immediately. Call the doctor if you aren't improved in 24 to 36 hours. Referrals: FRANCISCA MYERS MD [Primary Care Provider] - Follow up as needed
[2019-12-22 01:57] LABS: ALBUMIN 4.7 g/dL (3.5-5.0); ALKALINE PHOSPHATASE 91 U/L (38-126); ANION GAP 10 (5-19); ASPARTATE AMINO TRANSFERASE 35 U/L (17-59); BILIRUBIN,DIRECT 0.4 mg/dL (0.0-0.4); BILIRUBIN,TOTAL 0.7 mg/dL (0.2-1.3); BLOOD UREA NITROGEN 20 mg/dL (7-20); CARBON DIOXIDE 23 mmol/L (22-30); CHLORIDE 107 mmol/L (98-107); CREATINE KINASE 51 U/L (55-170); GLUCOSE 106 mg/dL (75-110); POTASSIUM 4.2 mmol/L (3.6-5.0); TOTAL PROTEIN 7.8 g/dL (6.3-8.2)
[2019-12-22 02:19] LABS: CREATINE KINASE MB 0.46 ng/mL (<4.55)
[2019-12-22 02:20] LABS: TROPONIN I < 0.012 ng/mL
--- NOTE | 2019-12-22 02:32 | RADIOLOGY REPORT (SQ) ---
EXAM DESCRIPTION: XR CHEST 1 VIEW COMPLETED DATE/TME: 12/22/2019 01:10 CLINICAL HISTORY: 44 years, Male, chest pain COMPARISON: None. NUMBER OF VIEWS: TECHNIQUE: LIMITATIONS: None. FINDINGS: There is possible mild pulmonary vascular congestion. The heart is normal in size. No evidence of pulmonary infiltrate or pleural effusion. The mediastinum is unremarkable. IMPRESSION: Possible mild pulmonary vascular congestion. copyright 2010 [employer]- All Rights Reserved
[2019-12-22] MEDS ORDERED: FAMOTIDINE 20 MG TABLET PO ONE (02:44)
[2019-12-22 03:13] VITALS: BP 146/95
--- NOTE | 2019-12-23 02:51 | EKG REPORT ---
SEVERITY:- NORMAL ECG - SINUS RHYTHM : Confirmed by: Morgan Mares MD 23-Dec-2019 02:50:59
== END 2019-12-22 03:21 | disposition home or self-care (01) ==
LOC: ER 23:53
DX: K29.70 Gastritis, unspecified, without bleeding (principal); R07.9 Chest pain, unspecified; Z79.899 Other long term (current) drug therapy; F17.200 Nicotine dependence, unspecified, uncomplicated; I10 Essential (primary) hypertension; J44.9 Chronic obstructive pulmonary disease, unspecified
CPT/HCPCS: 93005; 99285; 36415; 82553; 82550; 85025; 80053; 84484; 71045; 93010; J3490

== ENCOUNTER 2019-12-25 17:05 | Emergency (ER) | payer SELFPAY ==
--- NOTE | 2019-12-25 17:46 | ER Document Report ---
ED Medical Screen (RME) - General Chief Complaint: Abdominal Pain Stated Complaint: ABDOMINAL PAIN Time Seen by Provider: 12/25/19 17:39 Primary Care Provider: FRANCISCA MYERS MD [Primary Care Provider] - Follow up as needed Notes: Patient is a 44-year-old male presents emergency department with a chief complaint of left upper quadrant pain. Patient reports that he was seen here 3 times over the past week. Patient reports that they did a chest x-ray and some blood work without any abnormality. Patient reports he feels like he is belching and having abdominal bloating. Patient reports he is having bowel mo vements. Denies vomiting. States that this pain started today, there is no activity or eating of food prior to this pain. TRAVEL OUTSIDE OF THE [place] IN LAST 30 DAYS: No - Related Data Allergies/Adverse Reactions: No Known Allergies Allergy (Verified 12/17/19 12:25) Past Medical History - Past Medical History Cardiac Medical History: Reports: Hx Hypercholesterolemia, Hx Hypertension Pulmonary Medical History: Reports: Hx COPD - sleep apnea-doesn't wear machine, Hx Sleep Apnea Neurological Medical History: Reports: Hx Migraine Renal/ Medical History: Denies: Hx Peritoneal Dialysis Musculoskeltal Medical History: Reports Hx Musculoskeletal Deformity, Reports Hx Musculoskeletal Trauma Psychiatric Medical History: Reports: Hx Anxiety Past Surgical History: Reports: Hx Abdominal Surgery - hernia repair, Hx Herniorrhaphy, Hx Myringotomy, Hx Orthopedic Surgery - L cervical laminectomies C4-5,5-6,6-7 with micro plates and screws 06/2015, Other - 2 Ear surgeries due to infection - Immunizations Hx Diphtheria, Pertussis, Tetanus Vaccination: Yes Physical Exam - Vital signs Vitals: Temp Pulse Resp BP Pulse Ox 98.6 F 82 20 156/91 H 99 12/25/19 17:09 12/25/19 17:09 12/25/19 17:09 12/25/19 17:09 12/25/19 17:09 - Abdominal Inspection: Normal Bowel sounds: Normal Tenderness: Nontender Organomegaly: No organomegaly Course - Re-evaluation Re-evalutation: 12/25/19 17:[address] basic labs. I have greeted and performed a rapid initial assessment of this patient. A comprehensive ED assessment and evaluation of the patient, analysis of test results and completion of the medical decision making process will be conducted by additional ED providers. - Vital Signs Vital signs: Temp Pulse Resp BP Pulse Ox 98.6 F 82 20 156/91 H 99 12/25/19 17:09 12/25/19 17:09 12/25/19 17:09 12/25/19 17:09 12/25/19 17:09 Doctor's Discharge - Discharge Referrals: FRANCISCA MYERS MD [Primary Care Provider] - Follow up as needed
[2019-12-25 18:22] LABS: ABSOLUTE EOSINOPHILS # (AUTO) 0.1 10^3/uL (0.0-0.6); ABSOLUTE LYMPHOCYTES (AUTO) 1.5 10^3/uL (0.5-4.7); ABSOLUTE MONOCYTES (AUTO) 0.7 10^3/uL (0.1-1.4); ABSOLUTE NEUT (AUTO) 5.5 10^3/uL (1.7-8.2); BASOPHILS % (AUTO) 0.5 % (0-2); EOSINOPHILS % (AUTO) 0.7 % (0-6); HEMATOCRIT 47.3 % (37.9-51.0); HEMOGLOBIN 16.8 g/dL (13.5-17.0); LYMPHOCYTES % (AUTO) 18.8 % (13-45); MEAN CORPUSCULAR HEMOGLOBIN 33.9 pg (27.0-33.4); MEAN CORPUSCULAR HGB CONC 35.6 g/dL (32.0-36.0); MEAN CORPUSCULAR VOLUME 95 fl (80-97); MONOCYTES % (AUTO) 8.8 % (3-13); PLATELET COUNT 197 10^3/uL (150-450); RED BLOOD COUNT 4.97 10^6/uL (4.35-5.55); RED CELL DISTRIBUTION WIDTH 12.8 % (11.5-14.0); SEGMENTED NEUTROPHILS % (AUTO) 71.2 % (42-78); TOTAL CELLS COUNTED % (AUTO) 100 %; WHITE BLOOD COUNT 7.7 10^3/uL (4.0-10.5)
[2019-12-25 18:28] LABS: APPEARANCE,URINE CLEAR; BILIRUBIN,URINE NEGATIVE (NEGATIVE); COLOR,URINE COLORLESS; GLUCOSE, URINE NEGATIVE (NEGATIVE); KETONES,URINE NEGATIVE (NEGATIVE); LEUKOCYTE ESTERASE,URINE NEGATIVE (NEGATIVE); NITRITE,URINE NEGATIVE (NEGATIVE); PROTEIN,URINE NEGATIVE (NEGATIVE); URINE SPECIFIC GRAVITY 1.001; UROBILINOGEN,URINE NEGATIVE mg/dL (<2.0)
[2019-12-25 18:49] LABS: ALBUMIN 4.7 g/dL (3.5-5.0); ALKALINE PHOSPHATASE 82 U/L (38-126); ANION GAP 9 (5-19); ASPARTATE AMINO TRANSFERASE 29 U/L (17-59); BILIRUBIN,DIRECT 0.3 mg/dL (0.0-0.4); BILIRUBIN,TOTAL 0.6 mg/dL (0.2-1.3); BLOOD UREA NITROGEN 11 mg/dL (7-20); CALCIUM 9.7 mg/dL (8.4-10.2); CARBON DIOXIDE 26 mmol/L (22-30); CHLORIDE 104 mmol/L (98-107); GLUCOSE 101 mg/dL (75-110); POTASSIUM 4.1 mmol/L (3.6-5.0); TOTAL PROTEIN 7.7 g/dL (6.3-8.2)
[2019-12-25] MEDS ORDERED: SIMETHICONE 80 MG TAB.CHEW PO ONE (21:57)
--- NOTE | 2019-12-25 21:58 | ER Document Report ---
ED GI/ - General Chief Complaint: Abdominal Pain Stated Complaint: ABDOMINAL PAIN Time Seen by Provider: 12/25/19 17:39 Primary Care Provider: FRANCISCA MYERS MD [NO LOCAL MD] - Follow up as needed Mode of Arrival: Ambulatory Information source: Patient Notes: Patient presents complaining of left upper quadrant tenderness for the past 8 days. Patient states he was recently treated here for gastritis and was placed on omeprazole. Patient is concerned that he may be having adverse side effects to this medication. Patient states his pain is actually improved today although he feels bloated. Patient reports last bowel movement was tonight and was normal. Patient reports increased belching. Patient denies any fever. Patient denies any chest pain cough or shortness of breath. TRAVEL OUTSIDE OF THE [place] IN LAST 30 DAYS: No - HPI Patient complains to provider of: Abdominal pain, Other - Abdominal distention, belching Onset: This afternoon Timing/Duration: Gradual Quality of pain: Pressure Pain Level: 1 Location: LUQ Associated symptoms: denies: Constipation, Diarrhea, Nausea, Vomiting Exacerbated by: Denies Relieved by: Denies Similar symptoms previously: No Recently seen / treated by doctor: Yes - Related Data Allergies/Adverse Reactions: No Known Allergies Allergy (Verified 12/17/19 12:25) Past Medical History - General Information source: Patient - Social History Smoking Status: Current Every Day Smoker Chew tobacco use (# tins/day): No Frequency of alcohol use: None Drug Abuse: None Occupation: None Lives with: Spouse/Significant other Family History: Reviewed & Not Pertinent, COPD, DM - Past Medical History Cardiac Medical History: Reports: Hx Hypercholesterolemia, Hx Hypertension Pulmonary Medical History: Reports: Hx COPD - sleep apnea-doesn't wear machine, Hx Sleep Apnea Neurological Medical History: Reports: Hx Migraine Renal/ Medical History: Denies: Hx Peritoneal Dialysis Musculoskeletal Medical History: Reports Hx Musculoskeletal Deformity, Reports Hx Musculoskeletal Trauma Psychiatric Medical History: Reports: Hx Anxiety Past Surgical History: Reports: Hx Abdominal Surgery - hernia repair, Hx Herniorrhaphy, Hx Myringotomy, Hx Orthopedic Surgery - L cervical laminectomies C4-5,5-6,6-7 with micro plates and screws 06/2015, Other - 2 Ear surgeries due to infection - Immunizations Hx Diphtheria, Pertussis, Tetanus Vaccination: Yes Review of Systems - Review of Systems Constitutional: No symptoms reported. denies: Fever EENT: No symptoms reported Cardiovascular: No symptoms reported. denies: Chest pain Respiratory: No symptoms reported. denies: Cough, Short of breath Gastrointestinal: Abdominal pain - Abdominal distention, Last bowel movement - This evening, Other - Frequent belching. denies: Vomiting Genitourinary: No symptoms reported Male Genitourinary: No symptoms reported Musculoskeletal: No symptoms reported. denies: Back pain Skin: No symptoms reported Hematologic/Lymphatic: No symptoms reported Neurological/Psychological: No symptoms reported Physical Exam - Vital signs Vitals: Temp Pulse Resp BP Pulse Ox 98.6 F 82 20 156/91 H 99 12/25/19 17:09 12/25/19 17:09 12/25/19 17:12/25/19 17:12/25/19 17:09 - Notes Notes: PHYSICAL EXAMINATION: GENERAL: Well-appearing and in no acute distress. HEAD: Atraumatic, normocephalic. EYES: sclera anicteric, conjunctiva are normal. ENT: nares patent. Moist mucous membranes. NECK: Normal range of motion, supple without lymphadenopathy LUNGS: CTAB and equal. No wheezes rales or rhonchi. HEART: Regular rate and rhythm without murmurs ABDOMEN: Soft, tympanic over epigastrium and left upper quadrant, nontender, normal bowel sounds, no guarding. EXTREMITIES: Normal range of motion, no pitting edema. No cyanosis. BACK: No midline tenderness, no step-off or deformity. No CVA tenderness NEUROLOGICAL: Cranial nerves grossly intact. Normal speech. Normal gait. PSYCH: Normal mood, normal affect. SKIN: Warm, Dry, normal turgor, no rashes or lesions noted Course - Re-evaluation Re-evalutation: 12/26/19 00:10 Patient's abdomen soft, nontender, no guarding. Patient states he feels much better after taking the Mylicon tablets. Patient with large amount of stool and gas noted on x-ray, will give patient a laxative to help with the symptoms. - Vital Signs Vital signs: Temp Pulse Resp BP Pulse Ox 97.8 F 64 18 150/89 H 100 12/26/19 00:19 12/26/19 00:19 12/26/19 00:19 12/26/19 00:19 12/26/19 00:19 - Laboratory Result Diagrams: 12/25/19 18:05 12/25/19 18:05 Laboratory results interpreted by me: 12/25/19 18:05 MCH 33.9 H 12/25/19 23:03 Labs- All tests 24 hr 12/25/19 12/25/19 12/25/19 17:35 18:05 18:05 WBC 7.7 RBC 4.97 Hgb 16.8 Hct 47.3 MCV 95 MCH 33.9 H MCHC 35.6 RDW 12.8 Plt Count 197 Lymph % (Auto) 18.8 [place] % (Auto) 8.8 Eos % (Auto) 0.7 Baso % (Auto) 0.5 Absolute Neuts (auto) 5.5 Absolute Lymphs (auto) 1.5 Absolute Monos (auto) 0.7 Absolute Eos (auto) 0.1 Absolute Basos (auto) 0.0 Seg Neutrophils % 71.2 Sodium 139.3 Potassium 4.1 Chloride 104 Carbon Dioxide 26 Anion Gap 9 BUN 11 Creatinine 0.90 Est GFR ( Amer) > 60 Est GFR (MDRD) Non-Af > 60 Glucose 101 Calcium 9.7 Total Bilirubin 0.6 Direct Bilirubin 0.3 Neonat Total Bilirubin Not Reportable Neonat Direct Bilirubin Not Reportable Neonat Indirect Bili Not Reportable AST 29 ALT 18 Alkaline Phosphatase 82 Total Protein 7.7 Albumin 4.7 Lipase 153.2 Urine Color COLORLESS Urine Appearance CLEAR Urine pH 7.0 Ur Specific [place] 1.001 Urine Protein NEGATIVE Urine Glucose (UA) NEGATIVE Urine Ketones NEGATIVE Urine Blood NEGATIVE Urine Nitrite NEGATIVE Urine Bilirubin NEGATIVE Urine Urobilinogen NEGATIVE Ur Leukocyte Esterase NEGATIVE Urine Ascorbic Acid NEGATIVE - Diagnostic Test Radiology reviewed: Image reviewed, Reports reviewed Discharge - Discharge Clinical Impression: Belching, Abdominal distention Constipation Qualifiers: Constipation type: unspecified constipation type Qualified Code(s): K59.00 - Constipation, unspecified Condition: Stable Disposition: HOME, SELF-CARE Instructions: Abdominal Pain ([facility]), Constipation ([facility]) Additional Instructions: Return immediately for any new or worsening symptoms Followup with your primary care provider, call tomorrow to make a followup appointment Prescriptions: Sucralfate [Carafate 1 gm Tablet] 1 gm PO ACHS #40 tablet Referrals: FRANCISCA MYERS MD [NO LOCAL MD] - Follow up as needed
--- NOTE | 2019-12-25 22:43 | RADIOLOGY REPORT (SQ) ---
EXAM DESCRIPTION: XR ABDOMEN 2 VIEWS SUPINE ERECT COMPLETED DATE/TME: 12/25/2019 21:56 CLINICAL HISTORY: 44 years, Male, LUQ pain, +bloating COMPARISON: None. NUMBER OF VIEWS: 3 TECHNIQUE: Supine and erect views of the abdomen LIMITATIONS: None. FINDINGS: Nonspecific, nonobstructive bowel gas pattern. Abundant gas and stool in the colon. No free air IMPRESSION: Abundant gas and stool in the colon copyright 2011 [id number]- All Rights Reserved
[2019-12-26] MEDS ORDERED: MAGNESIUM CITRATE 296 ML BOTTLE PO ONE (00:10)
[2019-12-26 00:22] VITALS: BP 150/89
== END 2019-12-26 00:23 | disposition home or self-care (01) ==
LOC: ER 17:05
DX: K59.00 Constipation, unspecified (principal); R14.2 Eructation; R10.812 Left upper quadrant abdominal tenderness; R14.0 Abdominal distension (gaseous); I10 Essential (primary) hypertension; J44.9 Chronic obstructive pulmonary disease, unspecified; F17.200 Nicotine dependence, unspecified, uncomplicated
CPT/HCPCS: 99284; 36415; 83690; 85025; 80053; 81001; 74019; J3490

== ENCOUNTER 2019-12-31 09:01 | Emergency (ER) | payer SELFPAY ==
[2019-12-31 09:55] LABS: ABSOLUTE BASOPHILS # (AUTO) 0.1 10^3/uL (0.0-0.2); ABSOLUTE EOSINOPHILS # (AUTO) 0.1 10^3/uL (0.0-0.6); ABSOLUTE LYMPHOCYTES (AUTO) 1.6 10^3/uL (0.5-4.7); ABSOLUTE MONOCYTES (AUTO) 0.7 10^3/uL (0.1-1.4); BASOPHILS % (AUTO) 1.1 % (0-2); EOSINOPHILS % (AUTO) 1.4 % (0-6); HEMATOCRIT 48.6 % (37.9-51.0); HEMOGLOBIN 17.3 g/dL (13.5-17.0); LYMPHOCYTES % (AUTO) 15.2 % (13-45); MEAN CORPUSCULAR HEMOGLOBIN 34.1 pg (27.0-33.4); MEAN CORPUSCULAR HGB CONC 35.7 g/dL (32.0-36.0); MEAN CORPUSCULAR VOLUME 96 fl (80-97); MONOCYTES % (AUTO) 6.9 % (3-13); PLATELET COUNT 214 10^3/uL (150-450); RED BLOOD COUNT 5.08 10^6/uL (4.35-5.55); RED CELL DISTRIBUTION WIDTH 13.3 % (11.5-14.0); SEGMENTED NEUTROPHILS % (AUTO) 75.4 % (42-78); TOTAL CELLS COUNTED % (AUTO) 100 %; WHITE BLOOD COUNT 10.6 10^3/uL (4.0-10.5)
[2019-12-31 10:17] LABS: ALBUMIN 4.7 g/dL (3.5-5.0); ALKALINE PHOSPHATASE 104 U/L (38-126); ANION GAP 9 (5-19); ASPARTATE AMINO TRANSFERASE 28 U/L (17-59); BILIRUBIN,DIRECT 0.3 mg/dL (0.0-0.4); BILIRUBIN,TOTAL 0.5 mg/dL (0.2-1.3); BLOOD UREA NITROGEN 12 mg/dL (7-20); CALCIUM 9.9 mg/dL (8.4-10.2); CARBON DIOXIDE 24 mmol/L (22-30); CHLORIDE 107 mmol/L (98-107); CREATINE KINASE 48 U/L (55-170); GLUCOSE 110 mg/dL (75-110); POTASSIUM 4.6 mmol/L (3.6-5.0); TOTAL PROTEIN 7.5 g/dL (6.3-8.2)
[2019-12-31 10:36] LABS: CREATINE KINASE MB 0.36 ng/mL (<4.55)
[2019-12-31 10:38] LABS: TROPONIN I < 0.012 ng/mL
--- NOTE | 2019-12-31 11:17 | ER Document Report ---
ED General - General Chief Complaint: Chest Pain Stated Complaint: CHEST TIGHTNESS Time Seen by Provider: 12/31/19 11:02 Primary Care Provider: FRANCISCA MYERS MD [Primary Care Provider] - Follow up as needed Mode of Arrival: Ambulatory Information source: Patient, [facility] Records Notes: This 44-year-old male patient comes emergency room with upper abdominal pain, chest discomfort, and a shaky feeling in his legs that occurred at 8 AM this morning. He recently started Bentyl for GERD type symptoms which he states has been taking. He last took one at 7 AM this morning. This is his fifth ER visit in 2 weeks. At this time he is completely symptom-free and his primary concern was why his legs felt shaky at 8:00 AM this morning. TRAVEL OUTSIDE OF THE [place] IN LAST 30 DAYS: No - Related Data Allergies/Adverse Reactions: No Known Allergies Allergy (Verified 12/17/19 12:25) Home Medications: bentyl Past Medical History - General Information source: Patient, [facility] Records - Social History Smoking Status: Current Every Day Smoker Cigarette use (# per day): Yes - 1/2 PPD Chew tobacco use (# tins/day): No Smoking Education Provided: No Frequency of alcohol use: Occasional Drug Abuse: None Occupation: Unemployed Lives with: Friend Family History: Reviewed & Not Pertinent, COPD, DM - Past Medical History Cardiac Medical History: Reports: Hx Hypercholesterolemia, Hx Hypertension Pulmonary Medical History: Reports: Hx Sleep Apnea Neurological Medical History: Reports: Hx Migraine Musculoskeletal Medical History: Reports Hx Musculoskeletal Deformity, Reports Hx Musculoskeletal Trauma Psychiatric Medical History: Reports: Hx Anxiety Past Surgical History: Reports: Hx Herniorrhaphy, Hx Myringotomy, Hx Orthopedic Surgery - L cervical laminectomies C4-5,5-6,6-7 with micro plates and screws 2015, Other - 2 Ear surgeries due to infection - Immunizations Hx Diphtheria, Pertussis, Tetanus Vaccination: Yes Review of Systems - Review of Systems Constitutional: No symptoms reported EENT: No symptoms reported Cardiovascular: See HPI Respiratory: No symptoms reported Gastrointestinal: See HPI Genitourinary: No symptoms reported Musculoskeletal: No symptoms reported Skin: No symptoms reported Hematologic/Lymphatic: No symptoms reported Neurological/Psychological: Anxiety Physical Exam - Vital signs Vitals: Temp Pulse Resp BP Pulse Ox 98.8 F 91 18 150/86 H 100 12/31/19 09:19 12/31/19 09:19 12/31/19 09:19 12/31/19 09:19 12/31/19 09:19 - Notes Notes: PHYSICAL EXAMINATION: GENERAL: Well-appearing, well-nourished and in no acute distress. HEAD: Atraumatic, normocephalic. EYES: Pupils equal round and reactive to light, extraocular movements intact, sclera anicteric, conjunctiva are normal. ENT: nares patent, oropharynx clear without exudates. Moist mucous membranes. NECK: Normal range of motion, supple without lymphadenopathy LUNGS: Breath sounds clear to auscultation bilaterally and equal. No wheezes rales or rhonchi. HEART: Regular rate and rhythm without murmurs ABDOMEN: Soft, nontender, normoactive bowel sounds. No guarding, no rebound. No masses appreciated. EXTREMITIES: Normal range of motion, no pitting or edema. No cyanosis. NEUROLOGICAL: Cranial nerves grossly intact. Normal speech, normal gait. Normal sensory, motor, and reflex exams. PSYCH: Normal mood, normal affect. SKIN: Warm, Dry, normal turgor, no rashes or lesions noted. Course - Vital Signs Vital signs: Temp Pulse Resp BP Pulse Ox 97.9 F 83 16 131/88 H 100 12/31/19 11:46 12/31/19 11:46 12/31/19 11:46 12/31/19 11:46 12/31/19 11:46 - Laboratory Result Diagrams: 12/31/19 09:43 12/31/19 09:43 Laboratory results interpreted by me: 12/31/19 12/31/19 09:43 09:43 WBC 10.6 H Hgb 17.3 H MCH 34.1 H Creatine Kinase 48 L - EKG Interpretation by Ks EKG shows normal: Sinus rhythm, Jerome, Intervals, QRS Complexes, ST-T Waves Rate: Normal - 89 Rhythm: NSR Discharge - Discharge Clinical Impression: Abdominal pain Qualifiers: Abdominal location: left upper quadrant Qualified Code(s): R10.12 - Left upper quadrant pain Condition: Stable Disposition: HOME, SELF-CARE Additional Instructions: Abdominal Pain There are many causes of abdominal pain. Pain can mean a serious problem requiring surgery (such as appendicitis). It can also be an innocent problem that goes away on its own (such as a viral infection). Often, time must pass to determine the cause of pain. The physician does not feel that hospitalization is necessary, at present. Things may change within the next 24 hours. Call the doctor or come back for re- examination if any problems occur, such as: (1) Pain that becomes more severe, steady, or becomes concentrated in one specific area. Also, pain that is more severe with movement or coughing. (2) Vomiting that persists or becomes more frequent. (3) Blood in the vomitus, urine, or bowel movements. Blood in the stool may have a tarry or black appearance. (4) Shaking chills or fever greater than 100 degrees F. (5) The abdomen becomes more distended or swollen. (6) Bowel movements cease. (7) Failure to improve as expected. The discomfort you experienced today is probably related to your reflux. There is no clear explanation to explain why your legs felt shaky earlier today. Your EKG, chest x-ray, blood work including liver enzymes and cardiac enzymes were all normal. You should continue taking the Bentyl as needed. Follow-up with your primary care provider if you continue to have problems. RETURN TO THE EMERGENCY ROOM IF ANY NEW OR WORSENING SYMPTOMS. Referrals: FRANCISCA MYERS MD [Primary Care Provider] - Follow up as needed
--- NOTE | 2019-12-31 11:39 | RADIOLOGY REPORT (SQ) ---
EXAM DESCRIPTION: CHEST SINGLE VIEW IMAGES COMPLETED DATE/TIME: 12/31/2019 11:12 am REASON FOR STUDY: chest pain COMPARISON: 12/22/2019 EXAM PARAMETERS: NUMBER OF VIEWS: One view. TECHNIQUE: Single frontal radiographic view of the chest acquired. RADIATION DOSE: NA LIMITATIONS: None. FINDINGS: LUNGS AND PLEURA: No opacities, masses or pneumothorax. No pleural effusion. MEDIASTINUM AND HILAR STRUCTURES: No masses. Contour normal. HEART AND VASCULAR STRUCTURES: Heart normal in size. Normal vasculature. BONES: No acute findings. HARDWARE: None in the chest. OTHER: No other significant finding. IMPRESSION: NO ACUTE RADIOGRAPHIC FINDING IN THE CHEST. TECHNICAL DOCUMENTATION: JOB ID: [id number] 2010 [employer]- All Rights Reserved Reading location - IP/workstation name: [email or web address]
[2019-12-31 11:48] VITALS: BP 131/88
--- NOTE | 2019-12-31 14:36 | EKG REPORT ---
SEVERITY:- NORMAL ECG - SINUS RHYTHM : Confirmed by: Ciara Mills MD 31-Dec-2019 14:34:57
== END 2019-12-31 11:46 | disposition home or self-care (01) ==
LOC: ER 09:01
DX: R07.9 Chest pain, unspecified (principal); R10.12 Left upper quadrant pain; F17.210 Nicotine dependence, cigarettes, uncomplicated; E78.00 Pure hypercholesterolemia, unspecified; I10 Essential (primary) hypertension
CPT/HCPCS: 36415; 71045; 80053; 82550; 82553; 84484; 85025; 93005; 93010; 99285

== ENCOUNTER 2020-01-02 12:21 | Emergency (ER) | payer SELFPAY ==
[2020-01-02] MEDS ORDERED: ONDANSETRON 4 MG TAB.RAPDIS PO ONE (12:38)
--- NOTE | 2020-01-02 12:39 | ER Document Report ---
ED Medical Screen (RME) - General Chief Complaint: Abdominal Pain Stated Complaint: ABDOMINAL PAIN Time Seen by Provider: 01/02/20 12:32 Primary Care Provider: FRANCISCA MYERS MD [Primary Care Provider] - Follow up as needed TRAVEL OUTSIDE OF THE [place] IN LAST 30 DAYS: No - HPI Notes: 01/02/20 12:38 44-year-old male to the emergency department with complaints of right-sided b urning abdominal pain that began this morning. He states it started after he had a bowel movement. He states he has been struggling with a left-sided upper abdominal pain for couple weeks now and is been on Bentyl and suggested that it potentially could be GERD. He has a plan to try to follow-up with GI but has not been able to get a referral from his primary care physician just yet. He states that he feels nauseated with it. And he also endorses extreme fatigue. He states that he usually is a very get up and go kind of person but recently he has just had no energy whatsoever. He admits that sometimes he struggles with some constipation. He denies any blood in his stool. Denies any weight loss. I performed a brief medical screening exam on the patient determined that the patient needs further evaluation and management by main side provider. I have placed initial orders to help expedite care. - Related Data Allergies/Adverse Reactions: No Known Allergies Allergy (Verified 12/17/19 12:25) Home Medications: Bentyl Past Medical History - Past Medical History Cardiac Medical History: Reports: Hx Hypercholesterolemia, Hx Hypertension Pulmonary Medical History: Reports: Hx COPD - sleep apnea-doesn't wear machine, Hx Sleep Apnea Neurological Medical History: Reports: Hx Migraine Renal/ Medical History: Denies: Hx Peritoneal Dialysis Musculoskeltal Medical History: Reports Hx Musculoskeletal Deformity, Reports Hx Musculoskeletal Trauma Psychiatric Medical History: Reports: Hx Anxiety Past Surgical History: Reports: Hx Abdominal Surgery - hernia repair, Hx Herniorrhaphy, Hx Myringotomy, Hx Orthopedic Surgery - L cervical laminectomies C4-5,5-6,6-7 with micro plates and screws 06/2015, Other - 2 Ear surgeries due to infection - Immunizations Hx Diphtheria, Pertussis, Tetanus Vaccination: Yes Physical Exam - Vital signs Vitals: Temp Pulse Resp BP Pulse Ox 97.8 F 83 16 158/96 H 100 01/02/20 12:01/02/20 12:01/02/20 12:01/02/20 12:01/02/20 12:26 Course - Vital Signs Vital signs: Temp Pulse Resp BP Pulse Ox 97.8 F 83 16 158/96 H 100 01/02/20 12:01/02/20 12:01/02/20 12:01/02/20 12:01/02/20 12:26 Doctor's Discharge - Discharge Referrals: FRANCISCA MYERS MD [Primary Care Provider] - Follow up as needed
[2020-01-02 13:31] LABS: ABSOLUTE EOSINOPHILS # (AUTO) 0.1 10^3/uL (0.0-0.6); ABSOLUTE LYMPHOCYTES (AUTO) 1.9 10^3/uL (0.5-4.7); ABSOLUTE MONOCYTES (AUTO) 0.5 10^3/uL (0.1-1.4); ABSOLUTE NEUT (AUTO) 5.3 10^3/uL (1.7-8.2); BASOPHILS % (AUTO) 0.4 % (0-2); EOSINOPHILS % (AUTO) 1.1 % (0-6); HEMATOCRIT 49.6 % (37.9-51.0); HEMOGLOBIN 17.8 g/dL (13.5-17.0); LYMPHOCYTES % (AUTO) 23.9 % (13-45); MEAN CORPUSCULAR HEMOGLOBIN 34.1 pg (27.0-33.4); MEAN CORPUSCULAR HGB CONC 35.8 g/dL (32.0-36.0); MEAN CORPUSCULAR VOLUME 95 fl (80-97); MONOCYTES % (AUTO) 6.8 % (3-13); PLATELET COUNT 211 10^3/uL (150-450); RED BLOOD COUNT 5.22 10^6/uL (4.35-5.55); RED CELL DISTRIBUTION WIDTH 12.7 % (11.5-14.0); SEGMENTED NEUTROPHILS % (AUTO) 67.8 % (42-78); TOTAL CELLS COUNTED % (AUTO) 100 %; WHITE BLOOD COUNT 7.8 10^3/uL (4.0-10.5)
[2020-01-02 13:45] LABS: CHLORIDE 104 mmol/L (98-107)
[2020-01-02 13:51] LABS: ALBUMIN 4.7 g/dL (3.5-5.0); ALKALINE PHOSPHATASE 79 U/L (38-126); ASPARTATE AMINO TRANSFERASE 26 U/L (17-59); BILIRUBIN,DIRECT 0.3 mg/dL (0.0-0.4); BILIRUBIN,TOTAL 0.8 mg/dL (0.2-1.3); BLOOD UREA NITROGEN 10 mg/dL (7-20); CALCIUM 9.8 mg/dL (8.4-10.2); GLUCOSE 104 mg/dL (75-110); POTASSIUM 4.3 mmol/L (3.6-5.0); TOTAL PROTEIN 7.6 g/dL (6.3-8.2)
[2020-01-02 13:52] LABS: CARBON DIOXIDE 24 mmol/L (22-30)
[2020-01-02 13:53] LABS: ANION GAP 10 (5-19)
[2020-01-02] MEDS ORDERED: DICYCLOMINE HCL 20 MG TABLET PO ONE (14:17)
--- NOTE | 2020-01-02 14:18 | ER Document Report ---
ED GI/ - General Chief Complaint: Abdominal Pain Stated Complaint: ABDOMINAL PAIN Time Seen by Provider: 01/02/20 12:32 Primary Care Provider: DAVON FERNANDES MD [ACTIVE STAFF] - Follow up as needed FRANCISCA MIRANDA MD [NO LOCAL MD] - Follow up as needed GARRETT ALY MD [ACTIVE STAFF] - Follow up as needed ROBERTO BROWN MD [ACTIVE STAFF] - Follow up as needed FRANCISCA MYERS MD [Primary Care Provider] - Follow up as needed Mode of Arrival: Ambulatory Information source: Patient Notes: Patient presents complaining of a burning abdominal pain to the lower abdomen is been off and on today. Patient presently states the pain is resolved. Patient denies any fever. Patient reports nausea without any vomiting or diarrhea. Last bowel movement was today. Patient states he has been having abdominal pain symptoms off and on for several weeks. Patient states that he had been taking Bentyl to help his symptoms although he ran out of the Bentyl yesterday. Appetite has been normal. TRAVEL OUTSIDE OF THE [place] IN LAST 30 DAYS: No - HPI Patient complains to provider of: Abdominal pain. No: Flank pain, Vomiting Onset: This morning Timing/Duration: Waxing and waning, Gone Quality of pain: Burning Severity in ED: Mild Pain Level: 1 Location: Pelvis Sexual history: Active Associated symptoms: Constipation, Nausea. denies: Diarrhea, Fever, Loss of appetite, Urinary hesitancy, Urinary frequency, Urinary retention, Urinary urgency, Vomiting Exacerbated by: Denies Relieved by: Denies Similar symptoms previously: Yes Recently seen / treated by doctor: Yes - Related Data Allergies/Adverse Reactions: No Known Allergies Allergy (Verified 12/17/19 12:25) Home Medications: Bentyl Past Medical History - General Information source: Patient - Social History Smoking Status: Current Every Day Smoker Frequency of alcohol use: None Drug Abuse: None Occupation: none Lives with: Spouse/Significant other Family History: Reviewed & Not Pertinent, COPD, DM - Past Medical History Cardiac Medical History: Reports: Hx Hypercholesterolemia, Hx Hypertension Pulmonary Medical History: Reports: Hx COPD - sleep apnea-doesn't wear machine, Hx Sleep Apnea Neurological Medical History: Reports: Hx Migraine Renal/ Medical History: Denies: Hx Peritoneal Dialysis Musculoskeletal Medical History: Reports Hx Musculoskeletal Deformity, Reports Hx Musculoskeletal Trauma Psychiatric Medical History: Reports: Hx Anxiety Past Surgical History: Reports: Hx Abdominal Surgery - hernia repair, Hx Herniorrhaphy, Hx Myringotomy, Hx Orthopedic Surgery - L cervical laminectomies C4-5,5-6,6-7 with micro plates and screws 06/2015, Other - 2 Ear surgeries due to infection - Immunizations Hx Diphtheria, Pertussis, Tetanus Vaccination: Yes Review of Systems - Review of Systems Constitutional: Other - fatigue. denies: Fever EENT: No symptoms reported Cardiovascular: No symptoms reported. denies: Chest pain, Dizziness Respiratory: No symptoms reported. denies: Cough, Short of breath Gastrointestinal: Abdominal pain, Nausea, Constipation. denies: Diarrhea, Vomiting, Poor appetite Genitourinary: No symptoms reported. denies: Dysuria, Flank pain Male Genitourinary: No symptoms reported Musculoskeletal: No symptoms reported. denies: Back pain Skin: No symptoms reported Hematologic/Lymphatic: No symptoms reported Neurological/Psychological: No symptoms reported Physical Exam - Vital signs Vitals: Temp Pulse Resp BP Pulse Ox 97.8 F 83 16 158/96 H 100 01/02/20 12:26 01/02/20 12:26 01/02/20 12:26 01/02/20 12:01/02/20 12:26 - Notes Notes: PHYSICAL EXAMINATION: GENERAL: Well-appearing and in no acute distress. HEAD: Atraumatic, normocephalic. EYES: sclera anicteric, conjunctiva are normal. ENT: nares patent. Moist mucous membranes. NECK: Normal range of motion, supple without lymphadenopathy LUNGS: CTAB and equal. No wheezes rales or rhonchi. HEART: Regular rate and rhythm without murmurs ABDOMEN: Soft, mild epigastric tenderness, normal bowel sounds, no guarding. EXTREMITIES: Normal range of motion, no pitting edema. No cyanosis. BACK: No midline tenderness, no step-off or deformity. No CVA tenderness NEUROLOGICAL: Cranial nerves grossly intact. Normal speech. PSYCH: Normal mood, normal affect. SKIN: Warm, Dry, normal turgor, no rashes or lesions noted Course - Re-evaluation Re-evalutation: 01/02/20 15:39 On repeat exam, abdomen soft nontender. Patient nontoxic in appearance without any fever or leukocytosis. Patient without any vomiting. Patient presents with abdominal pain without signs of peritonitis or other life-threatening or serious etiology. Patient appears stable for discharge and has been instructed to return immediately if the symptoms worsen in any way. Patient encouraged to follow-up with a [employer] librarian for further evaluation. - Vital Signs Vital signs: Temp Pulse Resp BP Pulse Ox 97.9 F 78 16 143/94 H 96 01/02/20 16:30 01/02/20 16:30 01/02/20 16:30 01/02/20 16:30 01/02/20 16:30 - Laboratory Result Diagrams: 01/02/20 13:00 01/02/20 13:00 Laboratory results interpreted by me: 01/02/20 13:00 Hgb 17.8 H MCH 34.1 H 01/02/20 15:08 Labs- All tests 24 hr 01/02/20 01/02/20 01/02/20 13:00 13:00 13:00 WBC 7.8 RBC 5.22 Hgb 17.8 H Hct 49.6 MCV 95 MCH 34.1 H MCHC 35.8 RDW 12.7 Plt Count 211 Lymph % (Auto) 23.9 Troup % (Auto) 6.8 Eos % (Auto) 1.1 Baso % (Auto) 0.4 Absolute Neuts (auto) 5.3 Absolute Lymphs (auto) 1.9 Absolute Monos (auto) 0.5 Absolute Eos (auto) 0.1 Absolute Basos (auto) 0.0 Seg Neutrophils % 67.8 Sodium 138.3 Potassium 4.3 Chloride 104 Carbon Dioxide 24 Anion Gap 10 BUN 10 Creatinine 0.88 Est GFR ( Amer) > 60 Est GFR (MDRD) Non-Af > 60 Glucose 104 Calcium 9.8 Total Bilirubin 0.8 Direct Bilirubin 0.3 Neonat Total Bilirubin Not Reportable Neonat Direct Bilirubin Not Reportable Neonat Indirect Bili Not Reportable AST 26 ALT 16 Alkaline Phosphatase 79 Total Protein 7.6 Albumin 4.7 Lipase 111.5 TSH 1.55 - Diagnostic Test Radiology reviewed: Image reviewed, Reports reviewed Discharge - Discharge Clinical Impression: Abdominal pain Qualifiers: Abdominal location: unspecified location Qualified Code(s): R10.9 - Unspecified abdominal pain Condition: Stable Disposition: HOME, SELF-CARE Instructions: Abdominal Pain ([facility]), Antispasmodics ([facility]) Additional Instructions: Return immediately for any new or worsening symptoms Followup with your primary care provider, call tomorrow to make a followup appoi ntment Follow-up with a [employer] librarian for further evaluation, call tomorrow to make an appointment. Prescriptions: Dicyclomine HCl [Bentyl 20 mg Tablet] 20 mg PO QID PRN #12 tablet PRN Reason: Polyethylene Glycol 3350 [Miralax] 17 gm PO DAILY #119 powder Referrals: FRANCISCA MYERS MD [Primary Care Provider] - Follow up as needed DAVON FERNANDES MD [ACTIVE STAFF] - Follow up as needed GARRETT ALY MD [ACTIVE STAFF] - Follow up as needed FRANCISCA MIRANDA MD [NO LOCAL MD] - Follow up as needed ROBERTO BROWN MD [ACTIVE STAFF] - Follow up as needed
--- NOTE | 2020-01-02 15:21 | RADIOLOGY REPORT (SQ) ---
EXAM DESCRIPTION: KUB/ABDOMEN (SINGLE VIEW) IMAGES COMPLETED DATE/TIME: 01/02/2020 3:03 pm REASON FOR STUDY: abd pain COMPARISON: 12/25/2019. NUMBER OF VIEWS: One view. TECHNIQUE: Supine radiographic image of the abdomen acquired. LIMITATIONS: None. FINDINGS: BOWEL GAS PATTERN: Normal bowel gas pattern. No dilated loops. CALCIFICATIONS: No suspicious calcifications. SOFT TISSUES: No gross mass or suggestion of organomegaly. HARDWARE: None in the abdomen. BONES: No acute fracture. No worrisome bone lesions. OTHER: No other significant finding. IMPRESSION: NO RADIOGRAPHIC EVIDENCE FOR ACUTE ABDOMINAL DISEASE. TECHNICAL DOCUMENTATION: JOB ID: [id number] 2010 [employer]- All Rights Reserved Reading location - IP/workstation name: [email or web address]
[2020-01-02 16:34] VITALS: BP 143/94
== END 2020-01-02 16:31 | disposition home or self-care (01) ==
LOC: ER 12:21
DX: K59.00 Constipation, unspecified (principal); R10.2 Pelvic and perineal pain; R10.816 Epigastric abdominal tenderness; R11.0 Nausea; R53.83 Other fatigue; F17.200 Nicotine dependence, unspecified, uncomplicated; I10 Essential (primary) hypertension; J44.9 Chronic obstructive pulmonary disease, unspecified
CPT/HCPCS: 99284; 36415; 83690; 84443; 85025; 80053; 74018; J3490

== ENCOUNTER 2020-01-03 00:23 | Emergency (ER) | payer SELFPAY ==
[2020-01-03 01:26] VITALS: BP 136/88
--- NOTE | 2020-01-03 01:42 | ER Document Report ---
ED Medical Screen (RME) - General Stated Complaint: UNEASY FEELING WAS HERE EARLIER TODAY Time Seen by Provider: 01/03/20 01:28 Primary Care Provider: FRANCISCA MYERS MD [Primary Care Provider] - Follow up as needed Mode of Arrival: Ambulatory Information source: Patient Notes: Patient presents reporting that he feels fuzzy headed this evening since about 10:00. Patient states that this made him feel anxious and he decided to come in because he was just here earlier in the day. Patient states that he is likely just fatigued although was not certain. Patient had been seen earlier in the day for abdominal pain, patient reports that abdominal pain is resolved and his stomach feels fine at this time. I have greeted and performed a rapid initial assessment of this patient. A comprehensive ED assessment and evaluation of the patient, analysis of test results and completion of the medical decision making process will be conducted by additional ED providers. TRAVEL OUTSIDE OF THE [place] IN LAST 30 DAYS: No - Related Data Allergies/Adverse Reactions: No Known Allergies Allergy (Verified 12/17/19 12:25) Past Medical History - Past Medical History Cardiac Medical History: Reports: Hx Hypercholesterolemia, Hx Hypertension Pulmonary Medical History: Reports: Hx COPD - sleep apnea-doesn't wear machine, Hx Sleep Apnea Neurological Medical History: Reports: Hx Migraine Renal/ Medical History: Denies: Hx Peritoneal Dialysis Musculoskeltal Medical History: Reports Hx Musculoskeletal Deformity, Reports Hx Musculoskeletal Trauma Psychiatric Medical History: Reports: Hx Anxiety Past Surgical History: Reports: Hx Abdominal Surgery - hernia repair, Hx Herniorrhaphy, Hx Myringotomy, Hx Orthopedic Surgery - L cervical laminectomies C4-5,5-6,6-7 with micro plates and screws 06/2015, Other - 2 Ear surgeries due to infection - Immunizations Hx Diphtheria, Pertussis, Tetanus Vaccination: Yes Physical Exam - Vital signs Vitals: Temp Pulse Resp BP Pulse Ox 97.9 F 78 18 136/88 H 98 01/03/20 01:24 01/03/20 01:01/03/20 01:01/03/20 01:01/03/20 01:24 - General General appearance: Appears well, Alert In distress: None - Abdominal Tenderness: Nontender Course - Vital Signs Vital signs: Temp Pulse Resp BP Pulse Ox 97.9 F 78 18 136/88 H 98 01/03/20 01:01/03/20 01:01/03/20 01:01/03/20 01:01/03/20 01:24 Doctor's Discharge - Discharge Referrals: FRANCISCA MYERS MD [Primary Care Provider] - Follow up as needed
== END 2020-01-03 02:40 | disposition left against medical advice (07) ==
LOC: ER 00:23
DX: R68.89 Other general symptoms and signs (principal); I10 Essential (primary) hypertension; J44.9 Chronic obstructive pulmonary disease, unspecified; Z53.20 Procedure and treatment not carried out because of patient's decision for unspecified reasons
CPT/HCPCS: 99281

== ENCOUNTER 2020-01-03 09:49 | Emergency (ER) | payer SELFPAY ==
[2020-01-03] MEDS ORDERED: SIMETHICONE 80 MG TAB.CHEW PO ONE (11:22)
--- NOTE | 2020-01-03 11:24 | ER Document Report ---
ED Medical Screen (RME) - General Chief Complaint: Abdominal Pain Stated Complaint: ABDOMINAL PAIN Time Seen by Provider: 01/03/20 11:12 Primary Care Provider: FRANCISCA MYERS MD [Primary Care Provider] - Follow up as needed Notes: Patient is a 44-year-old male who presents emergency department with a chief complaint of abdominal pain. Patient reports he has been seen here multiple times over the past 2 weeks for the same abdominal pain. Patient reports that his last bowel movement was 24 hours ago. Patient states that he feels like he is having a lot of gas and bloating. States that his abdominal pain is sometimes in the right lower quadrant and then radiates to the left upper quadrant. Denies fever. States the Bentyl was helping with his discomfort. TRAVEL OUTSIDE OF THE [place] IN LAST 30 DAYS: No - Related Data Allergies/Adverse Reactions: No Known Allergies Allergy (Verified 12/17/19 12:25) Past Medical History - Past Medical History Cardiac Medical History: Reports: Hx Hypercholesterolemia, Hx Hypertension Pulmonary Medical History: Reports: Hx COPD - sleep apnea-doesn't wear machine, Hx Sleep Apnea Neurological Medical History: Reports: Hx Migraine Renal/ Medical History: Denies: Hx Peritoneal Dialysis Musculoskeltal Medical History: Reports Hx Musculoskeletal Deformity, Reports Hx Musculoskeletal Trauma Psychiatric Medical History: Reports: Hx Anxiety Past Surgical History: Reports: Hx Abdominal Surgery - hernia repair, Hx Herniorrhaphy, Hx Myringotomy, Hx Orthopedic Surgery - L cervical laminectomies C4-5,5-6,6-7 with micro plates and screws 06/2015, Other - 2 Ear surgeries due to infection - Immunizations Hx Diphtheria, Pertussis, Tetanus Vaccination: Yes Physical Exam - Vital signs Vitals: Temp Pulse Resp BP Pulse Ox 97.6 F 73 20 134/98 H 100 01/03/20 09:58 01/03/20 09:58 01/03/20 09:58 01/03/20 09:58 01/03/20 09:58 - Abdominal Inspection: Normal Distension: No distension Bowel sounds: Normal Tenderness: Nontender Organomegaly: No organomegaly Course - Re-evaluation Re-evalutation: 01/03/20 11:24 I have greeted and performed a rapid initial assessment of this patient. A comprehensive ED assessment and evaluation of the patient, analysis of test results and completion of the medical decision making process will be conducted by additional ED providers. - Vital Signs Vital signs: Temp Pulse Resp BP Pulse Ox 97.6 F 73 20 134/98 H 100 01/03/20 09:58 01/03/20 09:58 01/03/20 09:58 01/03/20 09:58 01/03/20 09:58 Doctor's Discharge - Discharge Referrals: FRANCISCA MYERS MD [Primary Care Provider] - Follow up as needed
[2020-01-03 11:51] LABS: ABSOLUTE EOSINOPHILS # (AUTO) 0.1 10^3/uL (0.0-0.6); ABSOLUTE LYMPHOCYTES (AUTO) 1.5 10^3/uL (0.5-4.7); ABSOLUTE MONOCYTES (AUTO) 0.7 10^3/uL (0.1-1.4); ABSOLUTE NEUT (AUTO) 8.1 10^3/uL (1.7-8.2); BASOPHILS % (AUTO) 0.5 % (0-2); EOSINOPHILS % (AUTO) 0.9 % (0-6); HEMATOCRIT 51.4 % (37.9-51.0); HEMOGLOBIN 18.1 g/dL (13.5-17.0); MEAN CORPUSCULAR HEMOGLOBIN 33.6 pg (27.0-33.4); MEAN CORPUSCULAR HGB CONC 35.3 g/dL (32.0-36.0); MEAN CORPUSCULAR VOLUME 95 fl (80-97); MONOCYTES % (AUTO) 6.8 % (3-13); PLATELET COUNT 234 10^3/uL (150-450); RED BLOOD COUNT 5.41 10^6/uL (4.35-5.55); RED CELL DISTRIBUTION WIDTH 12.9 % (11.5-14.0); SEGMENTED NEUTROPHILS % (AUTO) 77.8 % (42-78); TOTAL CELLS COUNTED % (AUTO) 100 %; WHITE BLOOD COUNT 10.4 10^3/uL (4.0-10.5)
[2020-01-03 11:54] LABS: AMORPHOUS SEDIMENT,URINE TRACE /HPF; APPEARANCE,URINE CLOUDY; BILIRUBIN,URINE NEGATIVE (NEGATIVE); COLOR,URINE YELLOW; GLUCOSE, URINE NEGATIVE (NEGATIVE); KETONES,URINE NEGATIVE (NEGATIVE); LEUKOCYTE ESTERASE,URINE NEGATIVE (NEGATIVE); NITRITE,URINE NEGATIVE (NEGATIVE); PROTEIN,URINE NEGATIVE (NEGATIVE); URINE SPECIFIC GRAVITY 1.013; UROBILINOGEN,URINE NEGATIVE mg/dL (<2.0)
--- NOTE | 2020-01-03 11:59 | RADIOLOGY REPORT (SQ) ---
EXAM DESCRIPTION: ACUTE ABDOMEN SERIES IMAGES COMPLETED DATE/TIME: 01/03/2020 11:50 am REASON FOR STUDY: Reports constipation, bloating COMPARISON: None. NUMBER OF VIEWS: Three views. TECHNIQUE: Frontal chest, supine abdomen and upright/decubitus abdomen radiographic images acquired. LIMITATIONS: None. FINDINGS: CHEST: Lungs clear of infiltrates. FREE AIR: None. No abnormal gas collections. BOWEL GAS PATTERN: Nonobstructive pattern. No dilated loops or air fluid levels. CALCIFICATIONS: No suspicious calcifications. HARDWARE: None in the abdomen. SOFT TISSUES: No gross mass or suggestion of organomegaly. BONES: No acute fracture. No worrisome bone lesions. OTHER: No other significant finding. IMPRESSION: NO RADIOGRAPHIC EVIDENCE FOR ACUTE ABDOMINAL DISEASE. TECHNICAL DOCUMENTATION: JOB ID: [id number] 2010 [employer]- All Rights Reserved Reading location - IP/workstation name: [email or web address]
[2020-01-03 12:13] LABS: ALKALINE PHOSPHATASE 71 U/L (38-126); ANION GAP 10 (5-19); ASPARTATE AMINO TRANSFERASE 28 U/L (17-59); BILIRUBIN,DIRECT 0.3 mg/dL (0.0-0.4); BILIRUBIN,TOTAL 0.8 mg/dL (0.2-1.3); BLOOD UREA NITROGEN 11 mg/dL (7-20); CALCIUM 9.8 mg/dL (8.4-10.2); CARBON DIOXIDE 27 mmol/L (22-30); CHLORIDE 104 mmol/L (98-107); GLUCOSE 103 mg/dL (75-110); POTASSIUM 4.6 mmol/L (3.6-5.0); TOTAL PROTEIN 8.1 g/dL (6.3-8.2)
[2020-01-03 13:44] VITALS: BP 147/88
--- NOTE | 2020-01-03 13:54 | ER Document Report ---
ED General - General Chief Complaint: Abdominal Pain Stated Complaint: ABDOMINAL PAIN Time Seen by Provider: 01/03/20 11:12 Primary Care Provider: FRANCISCA MYERS MD [Primary Care Provider] - Follow up as needed Notes: 44-year-old male presenting with 2 weeks of difficulty and straining to have a bowel movement. He states that he has abdominal pain that starts on the right lower quadrant radiates up to the right upper quadrant and goes across to the left lower quadrant. He states he feels bloated. Has increased burping. Has increased gassiness. States he typically has a soft bowel movement multiple times a day up to 2 weeks ago. 2 weeks ago he began having difficulty having a bowel movement and was having a bowel movement approximately every other day. He denies any blood in the stool. He was seen here yesterday and was given Bentyl and Gas-X which helped alleviate his pain. He was discharged on MiraLAX. He did have a bowel movement yesterday at 9:30 AM. That did help alleviate his pain. He has not had a bowel movement since yesterday. He took the MiraLAX yesterday around 11 PM and did not have a bowel movement this morning. Patient drinks approximately 8 ounces of water a day. He also has coffee. He denies any fever, chills, chest pain or shortness of breath. Labs from yesterday are unremarkable. TRAVEL OUTSIDE OF THE [place] IN LAST 30 DAYS: No - Related Data Allergies/Adverse Reactions: No Known Allergies Allergy (Verified 01/03/20 20:23) Past Medical History - Social History Smoking Status: Current Every Day Smoker Family History: Reviewed & Not Pertinent, COPD, DM - Past Medical History Cardiac Medical History: Reports: Hx Hypercholesterolemia, Hx Hypertension Pulmonary Medical History: Reports: Hx COPD - sleep apnea-doesn't wear machine, Hx Sleep Apnea Neurological Medical History: Reports: Hx Migraine Renal/ Medical History: Denies: Hx Peritoneal Dialysis Musculoskeletal Medical History: Reports Hx Musculoskeletal Deformity, Reports Hx Musculoskeletal Trauma Psychiatric Medical History: Reports: Hx Anxiety Past Surgical History: Reports: Hx Abdominal Surgery - hernia repair, Hx Herniorrhaphy, Hx Myringotomy, Hx Orthopedic Surgery - L cervical laminectomies C4-5,5-6,6-7 with micro plates and screws 06/2015, Other - 2 Ear surgeries due to infection - Immunizations Hx Diphtheria, Pertussis, Tetanus Vaccination: Yes Review of Systems - Review of Systems Constitutional: No symptoms reported EENT: No symptoms reported Cardiovascular: No symptoms reported Respiratory: No symptoms reported Gastrointestinal: See HPI Genitourinary: No symptoms reported Male Genitourinary: No symptoms reported Musculoskeletal: No symptoms reported Skin: No symptoms reported Hematologic/Lymphatic: No symptoms reported Neurological/Psychological: No symptoms reported Physical Exam - Vital signs Vitals: Temp Pulse Resp BP Pulse Ox 97.6 F 73 20 134/98 H 100 01/03/20 09:58 01/03/20 09:58 01/03/20 09:58 01/03/20 09:58 01/03/20 09:58 Interpretation: Hypertensive - Notes Notes: Adult General: GENERAL: Alert, interacts well. No acute distress HEAD: Normocephalic, atraumatic EYES: Pupils equal, round and reactive to light. Extraocular movements intact. ENT: Oral mucosa moist, tongue midline. Oropharynx unremarkable. Airway patent. Nares patent, sinuses nontender, ear canals unremarkable, TMs intact. No Trismus. NECK: Full range of motion. Supple. Trachea midline. No lymphadenopathy. LUNGS: Clear to auscultation bilaterally, no wheezes, rales, or rhonchi. No respiratory distress. Nontender chest wall. HEART: Regular rate and rhythm. No murmurs, rubs or gallops. ABDOMEN: Soft, mild tenderness to left and right lower quadrant. Nondistended. (-) [place] sign. Bowel sounds present in all 4 quadrants. No rebound, guarding or masses. GENITOURINARY: Deferred EXTREMITIES: Moves all 4 extremities spontaneously. No edema, normal radial and dorsal pedis pulses bilaterally. No cyanosis. BACK: No cervical, thoracic, lumbar midline tenderness. No saddle anesthesia, normal distal neurovascular exam. Moves all extremities with full range of motion. NEUROLOGICAL: Alert and oriented x3. Normal speech. Strength 5/ 5 in all extremities. PSYCH: Normal affect, normal mood. SKIN: Warm, dry, normal turgor. No rashes or lesions noted. Course - Re-evaluation Re-evalutation: 01/03/20 13:51 Patient is in no acute distress, nontoxic. EKG is unremarkable. Abdomen is soft with mild tenderness to the right lower and left lower quadrants. Not distended. He has no rebound or guarding noted. Bowel sounds are active in all 4 quadrants. Patient is able to keep food down and denies any nausea or vomiting. His x-ray shows no acute findings. As patient's physical exam is overall unremarkable and his symptoms have improved since yesterday I am comfortable discharging the patient. I do not feel additional imaging is nec essary. I have very low suspicion for ACS, abdominal aortic aneurysm, pancreatitis, appendicitis or other emergent abdominal etiology. I had a long discussion with the patient in regards to how to take the MiraLAX and to increase his water intake with the miralax. I also recommend that he takes Gas- X as this helps to improve his abdominal discomfort and his bloating sensation. I will also prescribed him Colace to help facilitate a bowel movement. I did discuss with him that I do recommend he follows up with his primary care provider. Also recommend that he has a referral to a GI specialist. Emergent return precautions disucssed. Patient acknowledges and verbalizes understanding of instructions and plan. All questions answered. - Vital Signs Vital signs: Temp Pulse Resp BP Pulse Ox 97.6 F 68 18 147/88 H 100 01/03/20 14:21 01/03/20 14:21 01/03/20 14:21 01/03/20 14:21 01/03/20 14:21 - Laboratory Result Diagrams: 01/03/20 11:29 01/03/20 11:29 Laboratory results interpreted by me: 01/03/20 11:29 Hgb 18.1 H Hct 51.4 H MCH 33.6 H Discharge - Discharge Clinical Impression: Abdominal pain Qualifiers: Abdominal location: unspecified location Qualified Code(s): R10.9 - Unspecified abdominal pain Condition: Stable Disposition: HOME, SELF-CARE Instructions: Abdominal Pain ([facility]) Additional Instructions: Your physical exam and work-up has been unremarkable in the emergency department. Please continue to take the MiraLAX. Please continue to increase your fluid intake. Please continue to take Gas-X as I suspect your symptoms are due to constipation and gas buildup in your abdomen. I will prescribe you a medication called Colace to help facilitate a bowel movement. Please follow-up with your primary care provider. You may need a referral to a drywall applicator. Please return to the emergency department for worsening symptoms or development of new symptoms. Prescriptions: Docusate Sodium [Colace 100 mg Capsule] 100 mg PO DAILY #30 capsule Forms: Smoking Cessation Education Referrals: FRANCISCA MYERS MD [Primary Care Provider] - Follow up as needed
== END 2020-01-03 14:21 | disposition home or self-care (01) ==
LOC: ER 09:49
DX: R10.31 Right lower quadrant pain (principal); R10.11 Right upper quadrant pain; R10.32 Left lower quadrant pain; R10.813 Right lower quadrant abdominal tenderness; R10.814 Left lower quadrant abdominal tenderness; R14.2 Eructation; R19.4 Change in bowel habit; F17.200 Nicotine dependence, unspecified, uncomplicated; I10 Essential (primary) hypertension; J44.9 Chronic obstructive pulmonary disease, unspecified
CPT/HCPCS: 36415; 74022; 80053; 81001; 85025; 99285

== ENCOUNTER 2020-01-03 18:06 | Emergency (ER) | payer SELFPAY ==
[2020-01-03 18:54] VITALS: BP 149/93
--- NOTE | 2020-01-03 20:33 | ER Document Report ---
HPI - HPI Time Seen by Provider: 01/03/20 20:28 Pain Level: Denies Notes: 44-year-old male patient presents the emergency department chief complaint of temporary altered sensation to the right side of his face. Patient reports he was seen and discharged from this hospital earlier today, he was prescribed MiraLAX. He states about an hour after he took the MiraLAX he had what felt like a spider crawling on the side of his face. He states there was no spider on his face, the crawling sensation went away within a few minutes. - ROS Systems Reviewed and Negative: Yes All other systems reviewed and negative - CONSTITUTIONAL Constitutional: DENIES: Fever, Chills - REPRODUCTIVE Reproductive: DENIES: : Past Medical History - General Information source: Patient - Social History Smoking Status: Current Every Day Smoker Frequency of alcohol use: Social Drug Abuse: None Family History: Reviewed & Not Pertinent, COPD, DM Patient has homicidal ideation: No - Past Medical History Cardiac Medical History: Reports: Hx Hypercholesterolemia, Hx Hypertension Pulmonary Medical History: Reports: Hx COPD - sleep apnea-doesn't wear machine, Hx Sleep Apnea Neurological Medical History: Reports: Hx Migraine Renal/ Medical History: Denies: Hx Peritoneal Dialysis Musculoskeletal Medical History: Reports Hx Musculoskeletal Deformity, Reports Hx Musculoskeletal Trauma Psychiatric Medical History: Reports: Hx Anxiety Past Surgical History: Reports: Hx Abdominal Surgery - hernia repair, Hx Herniorrhaphy, Hx Myringotomy, Hx Orthopedic Surgery - L cervical laminectomies C4-5,5-6,6-7 with micro plates and screws 06/2015, Other - 2 Ear surgeries due to infection - Immunizations Hx Diphtheria, Pertussis, Tetanus Vaccination: Yes Vertical Provider Document - CONSTITUTIONAL Notes: PHYSICAL EXAMINATION: GENERAL: Well-appearing, well-nourished and in no acute distress. HEAD: Atraumatic, normocephalic. EYES: Pupils equal round extraocular movements intact, conjunctiva are normal. ENT: Nares patent NECK: Normal range of motion LUNGS: No respiratory distress Musculoskeletal: Normal range of motion NEUROLOGICAL: Normal speech, normal gait. PSYCH: Normal mood, normal affect. SKIN: Warm, Dry, normal turgor, no rashes or lesions noted. - INFECTION CONTROL TRAVEL OUTSIDE OF THE [place] IN LAST 30 DAYS: No Course - Re-evaluation Re-evalutation: Patient reports symptoms have completely resolved. I do not feel that this is any type of reaction to the medication. Patient agreeable to be discharged at this time. - Vital Signs Vital signs: Temp Pulse Resp BP Pulse Ox 98.1 F 74 16 149/93 H 99 01/03/20 18:52 01/03/20 18:52 01/03/20 18:52 01/03/20 18:52 01/03/20 18:52 Discharge - Discharge Clinical Impression: Normal exam, Worried well Condition: Stable Disposition: HOME, SELF-CARE Additional Instructions: Please continue taking the MiraLAX as directed by the previous ER provider. Return with any new or life-threatening concerns. Referrals: FRANCISCA MYERS MD [Primary Care Provider] - Follow up as needed
== END 2020-01-03 20:36 | disposition home or self-care (01) ==
LOC: ER 18:06
DX: Z71.1 Person with feared health complaint in whom no diagnosis is made (principal); F17.200 Nicotine dependence, unspecified, uncomplicated; I10 Essential (primary) hypertension; J44.9 Chronic obstructive pulmonary disease, unspecified
CPT/HCPCS: 99282

== ENCOUNTER 2020-01-03 22:33 | Emergency (ER) | payer SELFPAY ==
--- NOTE | 2020-01-04 01:54 | ER Document Report ---
ED ENT - General Chief Complaint: Ear Pain Stated Complaint: [place] PAIN Time Seen by Provider: 01/04/20 01:14 Primary Care Provider: FRANCISCA MYERS MD [Primary Care Provider] - Follow up as needed Notes: Patient is a 44-year-old male who presents to the emergency department with a chief complaint of right ear pain. Patient states that his ear started hurting today. Patient states that he has a history of ear infections in the past. Patient also has chronic otitis externa in the left ear. Patient denies any fever, body aches, or chills. Patient states that he does not have any abdominal pain. States that his abdominal issues that he has been in here multiple times in the emergency department are resolved. TRAVEL OUTSIDE OF THE [place] IN LAST 30 DAYS: No - Related Data Allergies/Adverse Reactions: No Known Allergies Allergy (Verified 01/03/20 20:23) Past Medical History - General Information source: Patient - Social History Smoking Status: Current Every Day Smoker Family History: Reviewed & Not Pertinent, COPD, DM - Past Medical History Cardiac Medical History: Reports: Hx Hypercholesterolemia, Hx Hypertension Pulmonary Medical History: Reports: Hx COPD - sleep apnea-doesn't wear machine, Hx Sleep Apnea Neurological Medical History: Reports: Hx Migraine Renal/ Medical History: Denies: Hx Peritoneal Dialysis Musculoskeletal Medical History: Reports Hx Musculoskeletal Deformity, Reports Hx Musculoskeletal Trauma Psychiatric Medical History: Reports: Hx Anxiety Past Surgical History: Reports: Hx Abdominal Surgery - hernia repair, Hx Herniorrhaphy, Hx Myringotomy, Hx Orthopedic Surgery - L cervical laminectomies C4-5,5-6,6-7 with micro plates and screws 06/2015, Other - 2 Ear surgeries due to infection - Immunizations Hx Diphtheria, Pertussis, Tetanus Vaccination: Yes Review of Systems - Review of Systems Notes: REVIEW OF SYSTEMS: CONSTITUTIONAL : Denies recent illness. Denies recent unintentional weight loss. Denies fever, chills, or sweats. EENT: Denies eye, throat, or mouth pain, discharge, or symptoms. Denies nasal or sinus congestion. See HPI. CARDIOVASCULAR: Denies chest pain. RESPIRATORY: Denies shortness of breath, cough, congestion, difficulty breathing, or wheezing. GASTROINTESTINAL: Denies nausea, vomiting, and diarrhea. Denies abdominal pain. Denies constipation. GENITOURINARY: Denies difficulty urinating, burning, blood in urine, urgency or frequency. MUSCULOSKELETAL: Denies neck and back pain. Denies joint pain or swelling. SKIN: Denies rash, itchiness, or lesions HEMATOLOGIC : Denies easy bruising or bleeding. LYMPHATIC: Denies swollen, painful, enlarged glands. NEUROLOGICAL: Denies no numbness or tingling denies weakness. Denies headache. Denies altered mental status. Denies alteration in speech. PSYCHIATRIC: Denies stress, anxiety, alteration in sleep patterns, or depression. All other systems reviewed and negative. Physical Exam - Vital signs Vitals: Temp Pulse Resp BP Pulse Ox 97.8 F 73 18 148/84 H 99 01/03/20 22:52 01/03/20 22:52 01/03/20 22:52 01/03/20 22:52 01/03/20 22:52 - Notes Notes: PHYSICAL EXAMINATION: GENERAL: Appears well, healthy, well-nourished, no acute distress. HEAD: Normocephalic, atraumatic. EYES: PERRL, conjunctiva normal, all extraocular movements intact, sclera nonicteric ENT: Moist mucous membranes. Purulent drainage noted to left external auditory canal. Erythema noted to right tympanic membrane. NECK: Supple, no noticeable swelling, redness, rash. Normal range of motion. LUNGS: Equal breath sounds bilaterally and clear to auscultation. No wheezes rales or rhonchi. CARDIOVASCULAR: S1-S2, regular rate, regular rhythm. Radial pulses 2+, normal. ABDOMEN: Normoactive bowel sounds. Soft, nontender, no guarding, no rebound te nderness, and no masses palpated. EXTREMITIES: Normal strength and range of motion, no pitting or edema. No cyanosis. NEUROLOGICAL: Moves all extremities upon command. Strength 5/5 in all extremi ties. PSYCH: Normal mood, normal affect. SKIN: Warm, dry. No rash, lesions, ulcerations noted. Normal skin turgor. Course - Re-evaluation Re-evalutation: 01/04/20 02:05 Patient has been here in the emergency department 6 times in the past 4 days. Out of genuine concern, I asked if he was homeless, but he stated that he was n ot. Told him to follow-up with his primary care provider and ENT doctor for his chronic ear discharge of his left ear. We will start him on Ciprodex. Have a low suspicion for mastoiditis, as there is no tenderness to the mastoid process on both sides. Right tympanic membrane is erythematous. We will start him on amoxicillin. He is in agreement with this plan. Follow-up precautions were given. Verbal discharge instructions were given to the patient. They verbalized understanding. They are stable for discharge. - Vital Signs Vital signs: Temp Pulse Resp BP Pulse Ox 97.7 F 71 14 148/97 H 100 01/04/20 02:01 01/04/20 02:01 01/04/20 02:01 01/04/20 02:01 01/04/20 02:01 Discharge - Discharge Clinical Impression: Right otitis media Qualifiers: Otitis media type: suppurative Chronicity: acute Recurrence: not specified as recurrent Spontaneous tympanic membrane rupture: without spontaneous rupture Qualified Code(s): H66.001 - Acute suppurative otitis media without spontaneous rupture of ear drum, right ear Left otitis externa Qualifiers: Otitis externa type: diffuse Chronicity: chronic Qualified Code(s): H60.312 - Diffuse otitis externa, left ear Condition: Stable Disposition: HOME, SELF-CARE Instructions: Use of Ear Drops ([facility]), Otitis Externa ([facility]) Additional Instructions: Otitis Externa You have otitis externa -- an infection of the outer ear canal. This can be very painful. It's sometimes called "swimmer's ear," because it often occurs after prolonged water exposure. Many things, such as earwax and dirt in the ear, can contribute to it. The usual treatment is antibiotic/antiinflammatory ear drops. Occasionally, a wick will be placed in the ear to draw in the medicine. If the infection is se timothy, an oral antibiotic may be prescribed. Pain medication is often needed. Avoid getting water in the ear. Outer ear infections often take longer to heal than you might expect. Some tenderness and ache in the ear may persist for about two weeks. See your physician if you fail to improve as expected. Call the doctor at once if you develop fever, increasing swelling (particularly if it makes your ear "poke out"), severe headache, stiff neck, or decreased hearing. Otitis Media You have a middle ear infection (otitis media). This is usually a complication of a cold or sore throat. The middle ear cavity becomes filled with infection. Pressure and stretching of the ear drum cause pain. Antibiotics are required. A 10 day course is usually prescribed. A decongestant may be recommended if you have a "runny nose." You may need anesthetic drops or other pain medication. A follow-up exam may be recommended to make sure the infection has completely cleared. If the ear begins to drain, it means the ear drum has ruptured. This will usually heal spontaneously. However, it means you should keep the ear dry until re-examined by a doctor. Call the physician or return for examination at once if there is severe headache, stiff neck, confusion, increasing fever, or dizziness. You should improve significantly within two days. If you're not better, call the doctor. Please follow-up with your ENT on Monday and let them know that you are being placed on antibiotics. Prescriptions: Amoxicillin Trihydrate [Amoxil 250 mg Capsule] 250 mg PO TID #30 capsule Ciprofloxacin HCl/Dexameth [Ciprodex Otic Suspension 7.5 ml Bottle] 4 drop OT BID 7 Days #1 bottle Referrals: FRANCISCA MYERS MD [Primary Care Provider] - Follow up as needed
[2020-01-04] MEDS ORDERED: AMOXICILLIN TRIHYD 250 MG CAPSULE PO ONE (01:56)
[2020-01-04 02:03] VITALS: BP 148/97
== END 2020-01-04 02:03 | disposition home or self-care (01) ==
LOC: ER 22:33
DX: H66.001 Acute suppurative otitis media without spontaneous rupture of ear drum, right ear (principal); H60.312 Diffuse otitis externa, left ear; H92.01 Otalgia, right ear; F17.200 Nicotine dependence, unspecified, uncomplicated; I10 Essential (primary) hypertension; J44.9 Chronic obstructive pulmonary disease, unspecified
CPT/HCPCS: 99283; J3490

== ENCOUNTER 2020-01-19 11:37 | Emergency (ER) | payer OTHER ==
[2020-01-19 11:48] VITALS: BP 146/92
--- NOTE | 2020-01-19 12:16 | ER Document Report ---
ED Extremity Problem, Upper - General Chief Complaint: Shoulder Pain Stated Complaint: CHEST/RIB PAIN Time Seen by Provider: 01/19/20 12:10 Primary Care Provider: JUNO SHAFFER DO [ACTIVE STAFF] - Follow up as needed FRANCISCA MYERS MD [Primary Care Provider] - Follow up as needed Notes: CHIEF COMPLAINT: Left chest wall and shoulder injury HPI: 44-year-old male presenting for left shoulder and chest wall injury today. Was helping move furniture for his girlfriend, began having increasing soreness with movement. Unsure if he may have pulled something. No significant chest discomfort at rest no shortness of breath ROS: See HPI - all other systems were reviewed and are otherwise negative Constitutional: no fever Eyes: no drainage, no blurred vision ENT: no runny nose, no sore throat Cardiovascular: Positive chest wall pain Resp: no SOB, no cough GI: no vomiting, no diarrhea, no abdominal pain : no dysuria Integumentary: no rash Allergy: no hives Musculoskeletal: Positive extremity pain or swelling Neurological: no numbness/tingling, no weakness MEDICATIONS: I agree with the patient medications as charted by the RN. ALLERGIES: I agree with the allergies as charted by the RN. PAST MEDICAL HISTORY/PAST SURGICAL HISTORY: Reviewed and agree as charted by RN. SOCIAL HISTORY: Reviewed and agree as charted by RN. FAMILY HISTORY: No significant familial comorbid conditions directly related to patient complaint EXAM: Reviewed vital signs as charted by RN. CONSTITUTIONAL: Alert and oriented and responds appropriately to questions. Well-appearing; well-nourished HEAD: Normocephalic; atraumatic EYES: PERRL; Conjunctivae clear, sclerae non-icteric ENT: normal nose; no rhinorrhea; moist mucous membranes; pharynx without lesions noted, no uvula edema or deviation, no tonsillar hypertrophy, phonation normal NECK: Supple without meningismus; non-tender; no cervical lymphadenopathy, no masses CARD: RRR; no murmurs, no clicks, no rubs, no gallops; symmetric distal pulses RESP: Normal chest excursion without splinting or tachypnea; breath sounds clear and equal bilaterally; no wheezes, no rhonchi, no rales, pulse oximetry 98% on room air not hypoxic. There is mild tenderness across the left anterior and lateral chest wall on palpation ABD/GI: Normal bowel sounds; non-distended; soft, non-tender, no rebound, no guarding; no palpable organomegaly or masses. BACK: The back appears normal and is non-tender to palpation, there is no CVA tenderness EXT: Normal ROM in all joints; mild tenderness through the left shoulder girdle on palpation. No restriction of range of motion noted; no cyanosis, no effusions, no edema SKIN: Normal color for age and race; warm; dry; good turgor; no acute lesions noted NEURO: Moves all extremities equally; Motor and sensory function intact PSYCH: The patient's mood and manner are appropriate. Grooming and personal hygiene are appropriate. MDM: 44-year-old male presenting with chest wall pain left shoulder pain that is reproducible with both palpation and movement he was lifting furniture this morning. I suspect a muscular injury. Patient has no significant pain at rest that would suggest ACS. Will obtain an EKG if no significant abnormalities anticipate discharge home on anti-inflammatory muscle relaxer orthopedic referral TRAVEL OUTSIDE OF THE [place] IN LAST 30 DAYS: No - Related Data Allergies/Adverse Reactions: No Known Allergies Allergy (Verified 01/19/20 12:07) Past Medical History - Social History Smoking Status: Former Smoker Family History: Reviewed & Not Pertinent, COPD, DM - Past Medical History Cardiac Medical History: Reports: Hx Hypercholesterolemia, Hx Hypertension Pulmonary Medical History: Reports: Hx COPD - sleep apnea-doesn't wear machine, Hx Sleep Apnea Neurological Medical History: Reports: Hx Migraine Renal/ Medical History: Denies: Hx Peritoneal Dialysis Musculoskeletal Medical History: Reports Hx Musculoskeletal Deformity, Reports Hx Musculoskeletal Trauma Psychiatric Medical History: Reports: Hx Anxiety Past Surgical History: Reports: Hx Abdominal Surgery - hernia repair, Hx Herniorrhaphy, Hx Myringotomy, Hx Orthopedic Surgery - L cervical laminectomies C4-5,5-6,6-7 with micro plates and screws 06/2015, Other - 2 Ear surgeries due to infection - Immunizations Hx Diphtheria, Pertussis, Tetanus Vaccination: Yes Physical Exam - Vital signs Vitals: Temp Pulse Resp BP Pulse Ox 98.2 F 88 20 146/92 H 99 01/19/20 11:47 01/19/20 11:47 01/19/20 11:47 01/19/20 11:47 01/19/20 11:47 Course - Re-evaluation Re-evalutation: 01/19/20 12:20 EKG normal sinus rhythm with a ventricular rate of 81. MT 132. QT 364. QTc 423. Interpreted by emergency department physician. No other ectopy. Normal EKG. No change from prior EKG December 31, 2019 - Vital Signs Vital signs: Temp Pulse Resp BP Pulse Ox 98.2 F 88 20 146/92 H 99 01/19/20 11:47 01/19/20 11:47 01/19/20 11:47 01/19/20 11:47 01/19/20 11:47 Discharge - Discharge Clinical Impression: Chest wall muscle strain Qualifiers: Encounter type: initial encounter Qualified Code(s): S29.011A - Strain of muscl e and tendon of front wall of thorax, initial encounter Left shoulder strain Qualifiers: Encounter type: initial encounter Qualified Code(s): S46.912A - Strain of unspecified muscle, fascia and tendon at shoulder and upper arm level, left arm, initial encounter Condition: Stable Disposition: HOME, SELF-CARE Additional Instructions: Warm heat to the chest wall ice to the shoulder. Anti-inflammatories and muscle relaxers as prescribed no driving if taking muscle relaxers. Follow-up with orthopedics for further evaluation and treatment call for appointment Prescriptions: Cyclobenzaprine HCl [Flexeril 10 mg Tablet] 10 mg PO TIDP PRN #15 tab PRN Reason: Diclofenac Sodium [Voltaren 50 Mg Tablet.] 50 mg PO BID #20 tablet. Referrals: FRANCISCA MYERS MD [Primary Care Provider] - Follow up as needed JUNO SHAFFER DO [ACTIVE STAFF] - Follow up as needed
--- NOTE | 2020-01-19 23:12 | EKG REPORT ---
SEVERITY:- NORMAL ECG - SINUS RHYTHM : Confirmed by: Ciara Mills MD 19-Jan-2020 23:12:10
== END 2020-01-19 12:22 | disposition home or self-care (01) ==
LOC: ER 11:37
DX: S46.912A Strain of unspecified muscle, fascia and tendon at shoulder and upper arm level, left arm, initial encounter (principal); S29.011A Strain of muscle and tendon of front wall of thorax, initial encounter; X58.XXXA Exposure to other specified factors, initial encounter; I10 Essential (primary) hypertension; J44.9 Chronic obstructive pulmonary disease, unspecified; Z87.891 Personal history of nicotine dependence
CPT/HCPCS: 93005; 93010; 99283

== ENCOUNTER 2020-01-24 06:38 | Emergency (ER) | payer OTHER ==
--- NOTE | 2020-01-24 07:39 | RADIOLOGY REPORT (SQ) ---
EXAM DESCRIPTION: XR CHEST 2 VIEWS COMPLETED DATE/TME: 01/24/2020 00:00 CLINICAL HISTORY: PAIN COMPARISON: 12/31/2019 FINDINGS: Frontal and lateral radiographic views of the chest. Cardiomediastinal silhouette: Normal size and contour. Lungs: No consolidation, pneumothorax, or pleural effusion. Bones: No acute osseous abnormality. Upper abdomen: No abnormality identified. IMPRESSION: 1. No acute pulmonary process identified.
[2020-01-24 07:59] LABS: ABSOLUTE EOSINOPHILS # (AUTO) 0.2 10^3/uL (0.0-0.6); ABSOLUTE LYMPHOCYTES (AUTO) 1.3 10^3/uL (0.5-4.7); ABSOLUTE MONOCYTES (AUTO) 0.5 10^3/uL (0.1-1.4); ABSOLUTE NEUT (AUTO) 4.7 10^3/uL (1.7-8.2); BASOPHILS % (AUTO) 0.6 % (0-2); EOSINOPHILS % (AUTO) 2.3 % (0-6); HEMATOCRIT 47.8 % (37.9-51.0); LYMPHOCYTES % (AUTO) 19.7 % (13-45); MEAN CORPUSCULAR HEMOGLOBIN 33.8 pg (27.0-33.4); MEAN CORPUSCULAR HGB CONC 35.5 g/dL (32.0-36.0); MEAN CORPUSCULAR VOLUME 95 fl (80-97); MONOCYTES % (AUTO) 7.5 % (3-13); PLATELET COUNT 207 10^3/uL (150-450); RED BLOOD COUNT 5.03 10^6/uL (4.35-5.55); RED CELL DISTRIBUTION WIDTH 12.7 % (11.5-14.0); SEGMENTED NEUTROPHILS % (AUTO) 69.9 % (42-78); TOTAL CELLS COUNTED % (AUTO) 100 %; WHITE BLOOD COUNT 6.7 10^3/uL (4.0-10.5)
[2020-01-24 08:19] LABS: ALBUMIN 4.6 g/dL (3.5-5.0); ALKALINE PHOSPHATASE 75 U/L (38-126); ANION GAP 10 (5-19); ASPARTATE AMINO TRANSFERASE 24 U/L (17-59); BILIRUBIN,DIRECT 0.2 mg/dL (0.0-0.4); BILIRUBIN,TOTAL 0.5 mg/dL (0.2-1.3); BLOOD UREA NITROGEN 14 mg/dL (7-20); CALCIUM 9.8 mg/dL (8.4-10.2); CARBON DIOXIDE 26 mmol/L (22-30); CHLORIDE 105 mmol/L (98-107); CREATINE KINASE 42 U/L (55-170); GLUCOSE 99 mg/dL (75-110); POTASSIUM 4.5 mmol/L (3.6-5.0); TOTAL PROTEIN 7.7 g/dL (6.3-8.2)
[2020-01-24 08:42] LABS: CREATINE KINASE MB 0.37 ng/mL (<4.55)
[2020-01-24 08:43] LABS: TROPONIN I < 0.012 ng/mL
--- NOTE | 2020-01-24 09:10 | ER Document Report ---
Entered by ZENY MARTÍNEZ SCRIBE 01/24/20 0818 Acting as scribe for:MAGALYS ROGERS MD ED General - General Chief Complaint: Chest Pain Stated Complaint: CHEST DISCOMFORT/LIGHT HEADED Primary Care Provider: FRANCISCA MYERS MD [Primary Care Provider] - Follow up as needed Mode of Arrival: Ambulatory Information source: Patient Notes: This 44 year old male patient presents to the ED today for evaluation of an episode of lightheadedness followed by left-sided chest discomfort that occurred while in the shower at 0530 this morning. Patient states that he was seen here on 01/18 and was diagnosed with chest wall muscle strain; he was discharged with prescriptions for Voltaren and Flexeril. He states that he took Flexeril around 1999 last night and went to bed around 2029. He mentions that today was the first time he woke up this early since starting Flexeril x5 days ago. He notes associated nausea, but denies any vomiting or diarrhea. Chest discomfort is resolved at this time. TRAVEL OUTSIDE OF THE [place] IN LAST 30 DAYS: No - Related Data Allergies/Adverse Reactions: No Known Allergies Allergy (Verified 01/24/20 07:01) Home Medications: FLEXIRIL. MOTRIN Past Medical History - General Information source: Patient, [facility] Records - Social History Smoking Status: Former Smoker Smoking Education Provided: No Frequency of alcohol use: None Drug Abuse: None Lives with: Spouse/Significant other Family History: Reviewed & Not Pertinent, COPD, DM Patient has suicidal ideation: No Patient has homicidal ideation: No - Past Medical History Cardiac Medical History: Reports: Hx Hypercholesterolemia, Hx Hypertension Pulmonary Medical History: Reports: Hx COPD, Hx Sleep Apnea - not on CPAP Neurological Medical History: Reports: Hx Migraine Musculoskeletal Medical History: Reports Hx Musculoskeletal Deformity, Reports Hx Musculoskeletal Trauma Psychiatric Medical History: Reports: Hx Anxiety Past Surgical History: Reports: Hx Herniorrhaphy, Hx Myringotomy, Hx Orthopedic Surgery - L cervical laminectomies C4-5,5-6,6-7 with micro plates and screws 06/2015, Other - 2 Ear surgeries due to infection - Immunizations Hx Diphtheria, Pertussis, Tetanus Vaccination: Yes Review of Systems - Review of Systems Constitutional: No symptoms reported EENT: No symptoms reported Cardiovascular: See HPI, Chest pain - discomfort, Lightheaded Respiratory: No symptoms reported Gastrointestinal: See HPI, Nausea. denies: Diarrhea, Vomiting Genitourinary: No symptoms reported Male Genitourinary: No symptoms reported Musculoskeletal: No symptoms reported Skin: No symptoms reported Hematologic/Lymphatic: No symptoms reported Neurological/Psychological: No symptoms reported -: Yes All other systems reviewed and negative Physical Exam - Vital signs Vitals: Temp Pulse Resp BP Pulse Ox 98.0 F 71 16 141/73 H 100 01/24/20 07:06 01/24/20 07:06 01/24/20 07:06 01/24/20 07:06 01/24/20 07:06 Interpretation: Normal - General General appearance: Appears well, Alert - HEENT Head: Normocephalic, Atraumatic Eyes: Normal Pupils: PERRL Tympanic membrane: Serous effusion - behind bilateral TMs. No: Injected Pharynx: Normal. No: Erythema Neck: Normal, Supple - Respiratory Respiratory status: No respiratory distress Chest status: Nontender Breath sounds: Normal Chest palpation: Normal - Cardiovascular Rhythm: Regular Heart sounds: Normal auscultation, S1 appreciated, S2 appreciated Murmur: No Friction rub: No Gallop: None auscultated - Abdominal Inspection: Normal Distension: No distension Bowel sounds: Normal Tenderness: Nontender - Abdomen soft Organomegaly: No organomegaly - Back Back: Normal, Nontender - Extremities General upper extremity: Normal inspection General lower extremity: Normal inspection. No: Edema - Neurological Neuro grossly intact: Yes Cognition: Normal Orientation: AAOx4 Murtaza Coma Scale Eye Opening: Spontaneous Murtaza Coma Scale Verbal: Oriented Murtaza Coma Scale Motor: Obeys Commands Murtaza Coma Scale Total: 15 Speech: Normal Cranial nerves: Normal. 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 No: Pronator drift, Weakness Sensory: Normal - Psychological Associated symptoms: Normal affect, Normal mood - Skin Skin Temperature: Warm Skin Moisture: Dry Skin Color: Normal Course - Re-evaluation Re-evalutation: 01/24/20 09:04 Patient is hemodynamically stable not showing any signs of distress at this time. Patient denies any headache chest pain nausea vomiting or dizziness at this time. Patient had awakened early this a.m. around 4 5:00 and noted problems when he was in the shower washing his scalp and hair noted that when he put his head back that he got a little dizzy. Then he started having some left- sided chest pain that resolved. With the symptoms patient came into the ED. - Vital Signs Vital signs: Temp Pulse Resp BP Pulse Ox 98.0 F 71 19 125/90 H 96 01/24/20 07:06 01/24/20 07:06 01/24/20 08:10 01/24/20 08:10 01/24/20 08:10 01/24/20 09:05 Vital signs stable diastolic around 90 recommend patient follow-up regarding his diastolic hypertension. - Laboratory Result Diagrams: 01/24/20 07:41 01/24/20 07:41 Laboratory results interpreted by me: 01/24/20 01/24/20 07:41 07:41 MCH 33.8 H Creatine Kinase 42 L 01/24/20 09:05 Troponin negative at this time otherwise no acute process patient has normal labs otherwise. Patient was just in the emergency department 5 days ago for cardiac work-up which included negative troponin x2. - Diagnostic Test Radiology reviewed: Image reviewed, Reports reviewed Radiology results interpreted by me: 01/24/20 09:06 Chest X-Ray 01/24/20 00:00 IMPRESSION: 1. No acute pulmonary process identified. Chest x-ray shows no acute process. No evidence for an infiltrate or cardiopulmonary disease. - EKG Interpretation by Me Additional EKG results interpreted by me: 01/24/20 09:03 Twelve-lead EKG shows normal sinus rhythm rate of 77 normal axis normal RI QRS and QT intervals. No acute ST elevations to suggest a STEMI. Compared to EKG on 01/19/2020 no change. Discharge - Discharge Clinical Impression: Dizziness, nonspecific, Chest wall muscle strain Condition: Stable Disposition: HOME, SELF-CARE Additional Instructions: Dizziness Under normal circumstances, your sense of balance is controlled by a number of signals that your brain receives from several locations: Eyes. No matter what your position, visual signals help you determine where your body is in space and how it's moving. Sensory nerves. These are in your skin, muscles and joints. Sensory nerves send messages to your brain about body movements and positions. Inner ear. The organ of balance in your inner ear is the vestibular labyrinth. It includes loop-shaped structures (semicircular canals) that contain fluid and fine, hair-like sensors that monitor the rotation of your head. Near the semicircular canals are the utricle and saccule, which contain tiny particles called otoconia ([id number]). These particles are attached to sensors that help detect gravity and [id number] motion. Good balance depends on at least two of these three sensory systems working well. For instance, closing your eyes while washing your hair in the shower doesn't mean you'll lose your balance. Signals from your inner ear and sensory nerves help keep you upright. However, if your central nervous system can't process signals from all of these locations, if the messages are contradictory, or if the sensory systems aren't f unctioning properly, you may experience loss of balance. Dizziness may have a number of potential causes. These may include: Vertigo Vertigo - the false sense of motion or spinning - is the most common symptom of dizziness. Sitting up or moving around may make it worse. Sometimes vertigo is severe enough to cause nausea and vomiting. Vertigo usually results from a problem with the nerves and the structures of the balance mechanism in your inner ear (vestibular system), which sense movement and changes in your head position. Abnormal rhythmic eye movements (nystagmus) almost always accompany vertigo. Causes of vertigo may include: Benign paroxysmal positional vertigo (BPPV). BPPV involves intense, brief episodes of vertigo associated with a change in the position of your head, often when you turn over in bed or sit up in the morning. It occurs when normal calci um carbonate crystals (otoconia) break loose and fall into the wrong part of the canals in your inner ear. When these particles shift, they stimulate sensors in your ear, producing an episode of vertigo. Doctors don't know what causes BPPV, but it may be a natural result of aging. Trauma to your head also may lead to BPPV. Inflammation in the inner ear. Signs and symptoms of inflammation of the inner ear (acute vestibular neuronitis or labyrinthitis) include sudden, intense vertigo that may persist for several days, with nausea and vomiting. It can be incapacitating, requiring bed rest to minimize the signs and symptoms. Fortunately, vestibular neuronitis generally subsides and clears up on its own. Recovery time may be shorter with vestibular rehabilitation exercises. Although the cause of this condition is unknown, it may be a viral infection. Meniere's disease. This disease involves the excessive buildup of fluid in your inner ear. It may affect adults at any age and is characterized by sudden episodes of vertigo lasting 30 minutes to an hour or longer. Other signs and symptoms include the feeling of fullness in your ear, buzzing or ringing in your ear (tinnitus), and fluctuating hearing loss. The cause of Meniere's disease is unknown. Vestibular migraine. People who experience a vestibular migraine are very sensitive to motion. Dizziness and vertigo caused by a vestibular migraine may be triggered by turning your head quickly, being in a crowded or confusing place, driving or riding in a vehicle, or even watching movement on TV. A vestibular migraine may cause feelings of imbalance or unsteadiness, hearing loss, "muffled" hearing, or ringing in your ears (tinnitus). For most people with a vestibular migraine, vertigo doesn't necessarily happen at the same time as the headache. Instead, typical migraine triggers may lead to vertigo without an actual migraine. Attacks of migrainous vertigo can last from a few minutes to several days. Acoustic neuroma. An acoustic neuroma (schwannoma) is a noncancerous (benign) growth on the acoustic nerve, which connects the inner ear to your brain. Signs and symptoms of an acoustic neuroma may include dizziness, loss of balance, hearing loss and tinnitus. Rapid changes in motion. Riding on roller coasters or in boats, cars or even airplanes may on occasion make you dizzy. Other causes. Rarely, vertigo can be a symptom of a more serious neurological problem such as a stroke, brain hemorrhage or multiple sclerosis. Feeling of faintness (presyncope) "Presyncope" is the medical term for feeling faint and lightheaded without losing consciousness. Sometimes nausea, pale skin and a sense of dizziness accompany a feeling of faintness. Causes of presyncope include: Drop in blood pressure (orthostatic hypotension). A dramatic drop in your systolic blood pressure - the higher number in your blood pressure reading - may result in lightheadedness or a feeling of faintness. It can occur after sitting up or standing too quickly. Inadequate output of blood from the heart. Conditions such as partially blocked arteries (atherosclerosis), disease of the heart muscle (cardiomyopathy), abnormal heart rhythm (arrhythmia) or a decrease in blood volume may cause inadequate blood flow from your heart. Loss of balance (disequilibrium) Disequilibrium is the loss of balance or the feeling of unsteadiness when you walk. Causes may include: Inner ear (vestibular) problems. Abnormalities with your inner ear can cause you to feel like you are floating, have a heavy head or are unsteady in the dark. Sensory disorders. Failing vision and nerve damage in your legs (peripheral neuropathy) are common in older adultsand may result in difficulty maintaining your balance. Joint and muscle problems. Muscle weakness and osteoarthritis - the type of arthritis that involves wear and tear of your joints - can contribute to loss of balance when it involves your weight-bearing joints. Medications. Loss of balance can be a side effect of certain medications, such as anti-seizure drugs, sedatives and tranquilizers. Lightheadedness and other kinds of 'dizziness' Feeling lightheaded is the feeling of being "spaced out" or having the sensation of spinning inside your head. It can also give you the sensation that if your lightheadedness worsens, you might lose consciousness. Causes may include: Inner ear disorders. These abnormalities of your inner ear can lead to illusions of motion and make you feel like you're floating. Anxiety disorders. Certain anxiety disorders, such as panic attacks and a fear of leaving home or being it sometimes in Large, open spaces (agoraphobia), may cause lightheadedness. Hyperventilation. Abnormally rapid breathing that often accompanies anxiety disorders may make you feel lightheaded. Today most likely your dizziness occurred due to having taken Flexeril which is a muscle relaxant. Muscle relaxants sometimes have an effect on the body for 10 to 12 hours. Therefore I recommend when you know that you are going to wake up a certain time in the morning and you should take your Flexeril tablet 10 to 12 hours prior to that awake time. Referrals: FRANCISCA MYERS MD [Primary Care Provider] - Follow up as needed I personally performed the services described in the documentation, reviewed and edited the documentation which was dictated to the scribe in my presence, and it accurately records my words and actions.
[2020-01-24 09:18] VITALS: BP 140/96
--- NOTE | 2020-01-24 18:17 | EKG REPORT ---
SEVERITY:- NORMAL ECG - SINUS RHYTHM : Confirmed by: Dang Awan 24-Jan-2020 18:17:12
== END 2020-01-24 09:18 | disposition home or self-care (01) ==
LOC: ER 06:38
DX: S29.011A Strain of muscle and tendon of front wall of thorax, initial encounter (principal); R42 Dizziness and giddiness; R11.0 Nausea; X58.XXXA Exposure to other specified factors, initial encounter; Y93.E1 Activity, personal bathing and showering; Y92.002 Bathroom of unspecified non-institutional (private) residence as the place of occurrence of the external cause; I10 Essential (primary) hypertension; E78.00 Pure hypercholesterolemia, unspecified; J44.9 Chronic obstructive pulmonary disease, unspecified
CPT/HCPCS: 36415; 71046; 80053; 82550; 82553; 84484; 85025; 93005; 93010; 99285

== ENCOUNTER 2020-02-01 19:32 | Emergency (ER) | payer OTHER, MEDICAID ==
--- NOTE | 2020-02-01 19:49 | ER Document Report ---
ED Medical Screen (RME) - General Chief Complaint: Neck and Upper Back Pain Stated Complaint: NECK PAIN Time Seen by Provider: 02/01/20 19:44 Primary Care Provider: FRANCISCA MYERS MD [Primary Care Provider] - Follow up as needed Mode of Arrival: Ambulatory Information source: Patient Notes: 44-year-old male presented to ED for pain behind the right ear. He states it started about 2 hours ago. He states last night both of his legs just gave out from under him but he was able to get right back up. He states he had no other symptoms. He states today he started having pain 100 ear and so became very concerned. He does have changes in the cervical spine due to stenosis. He states in 2018 he had problems with dropping stuff and they told him they thought it might be the hinges in his neck. Today when he did have an pain behind his ear after falling yesterday he became concerned and came to the emergency room. Will get CT of the head neck chest x-ray and blood work and have him seen by another provider. I have greeted and performed a rapid initial assessment of this patient. A comprehensive ED assessment and evaluation of the patient, analysis of test results and completion of medical decision making process will be conducted by an additional ED providers. TRAVEL OUTSIDE OF THE [place] IN LAST 30 DAYS: No - Related Data Allergies/Adverse Reactions: No Known Allergies Allergy (Verified 01/24/20 07:01) Past Medical History - Past Medical History Cardiac Medical History: Reports: Hx Hypercholesterolemia, Hx Hypertension Pulmonary Medical History: Reports: Hx COPD, Hx Sleep Apnea - not on CPAP Neurological Medical History: Reports: Hx Migraine Renal/ Medical History: Denies: Hx Peritoneal Dialysis Musculoskeltal Medical History: Reports Hx Musculoskeletal Deformity, Reports Hx Musculoskeletal Trauma Psychiatric Medical History: Reports: Hx Anxiety Past Surgical History: Reports: Hx Abdominal Surgery - hernia repair, Hx Herniorrhaphy, Hx Myringotomy, Hx Orthopedic Surgery - L cervical laminectomies C4-5,5-6,6-7 with micro plates and screws 06/2015, Other - 2 Ear surgeries due to infection - Immunizations Hx Diphtheria, Pertussis, Tetanus Vaccination: Yes Physical Exam - Vital signs Vitals: Temp Pulse Resp BP Pulse Ox 97.9 F 92 18 134/94 H 98 02/01/20 19:39 02/01/20 19:39 02/01/20 19:39 02/01/20 19:39 02/01/20 19:39 Course - Vital Signs Vital signs: Temp Pulse Resp BP Pulse Ox 97.9 F 92 18 134/94 H 98 02/01/20 19:39 02/01/20 19:39 02/01/20 19:39 02/01/20 19:39 02/01/20 19:39 Doctor's Discharge - Discharge Referrals: FRANCISCA MYERS MD [Primary Care Provider] - Follow up as needed
[2020-02-01 20:46] LABS: ABSOLUTE BASOPHILS # (AUTO) 0.1 10^3/uL (0.0-0.2); ABSOLUTE EOSINOPHILS # (AUTO) 0.1 10^3/uL (0.0-0.6); ABSOLUTE LYMPHOCYTES (AUTO) 1.9 10^3/uL (0.5-4.7); ABSOLUTE MONOCYTES (AUTO) 0.7 10^3/uL (0.1-1.4); ABSOLUTE NEUT (AUTO) 6.1 10^3/uL (1.7-8.2); BASOPHILS % (AUTO) 0.7 % (0-2); EOSINOPHILS % (AUTO) 1.5 % (0-6); HEMATOCRIT 48.7 % (37.9-51.0); HEMOGLOBIN 17.5 g/dL (13.5-17.0); LYMPHOCYTES % (AUTO) 21.3 % (13-45); MEAN CORPUSCULAR HGB CONC 35.9 g/dL (32.0-36.0); MEAN CORPUSCULAR VOLUME 95 fl (80-97); PLATELET COUNT 222 10^3/uL (150-450); RED BLOOD COUNT 5.14 10^6/uL (4.35-5.55); RED CELL DISTRIBUTION WIDTH 12.7 % (11.5-14.0); SEGMENTED NEUTROPHILS % (AUTO) 68.5 % (42-78); TOTAL CELLS COUNTED % (AUTO) 100 %; WHITE BLOOD COUNT 8.9 10^3/uL (4.0-10.5)
[2020-02-01 20:55] LABS: ALBUMIN 4.8 g/dL (3.5-5.0); ALKALINE PHOSPHATASE 100 U/L (38-126); ANION GAP 10 (5-19); ASPARTATE AMINO TRANSFERASE 27 U/L (17-59); BILIRUBIN,DIRECT 0.3 mg/dL (0.0-0.4); BILIRUBIN,TOTAL 0.6 mg/dL (0.2-1.3); BLOOD UREA NITROGEN 19 mg/dL (7-20); CALCIUM 10.2 mg/dL (8.4-10.2); CARBON DIOXIDE 24 mmol/L (22-30); CHLORIDE 104 mmol/L (98-107); GLUCOSE 99 mg/dL (75-110); POTASSIUM 4.4 mmol/L (3.6-5.0); TOTAL PROTEIN 7.7 g/dL (6.3-8.2)
[2020-02-01 20:56] LABS: PARTIAL THROMBOPLASTIN TIME 29.1 SEC (23.5-35.8); PROTHROMBIN TIME 12.6 SEC (11.4-15.4)
[2020-02-01 20:57] LABS: INTERNATIONAL RATION (INR) 0.92
--- NOTE | 2020-02-01 21:15 | RADIOLOGY REPORT (SQ) ---
INDICATION: Pain behind right ear, control of legs last night. COMPARISON: September 03, 2019 CORRELATION: None TECHNIQUE: Noncontrast spiral axial CT images were obtained from the skull base to vertex. Noncontrast spiral axial CT imaging through the cervical spine with multiplanar reconstructions. This exam was performed according to our departmental dose-optimization program, which includes automated exposure control, adjustment of the mA and/or kV according to patient size and/or use of iterative reconstruction techniques. FINDINGS: BRAIN: There is no evidence of acute intracranial hemorrhage, midline shift, mass effect or mass lesion. Husain-white differentiation is normal. There is no evidence of acute large territory infarct. Ventricles and extracerebral spaces are within normal limits, for age. The visualized paranasal sinuses are grossly clear. The orbits and eyeballs are unremarkable. Left mastoiditis. Possible postsurgical change. This is similar to prior. Please correlate with history. Skull base and calvarium appear intact. CERVICAL SPINE: No acute displaced fracture is identified of the cervical spine. Alignment is anatomic. No focal alignment abnormality is identified. The uncovertebral joints and facets are within normal limits, for age. Remote postsurgical change C4-C6. Surrounding soft tissues of the neck are unremarkable. IMPRESSION: No acute intracranial process is identified. Left mastoiditis and perhaps mastoidectomy changes, similar to prior. No acute bony injury is seen to the cervical spine.
[2020-02-01 22:05] VITALS: BP 152/93
--- NOTE | 2020-02-01 22:30 | ER Document Report ---
ED General - General Chief Complaint: Ear Pain Stated Complaint: NECK PAIN Time Seen by Provider: 02/01/20 19:44 Primary Care Provider: FRANCISCA MYERS MD [Primary Care Provider] - Follow up as needed Mode of Arrival: Ambulatory Notes: 44-year-old male history of hypertension hyperlipidemia COPD spinal fusion approximately 4 years ago presents with gradually worsening posterior neck pain and sensation of right ear pressure over the past few weeks with one episode yesterday of losing strength in bilateral legs causing him to fall without any trauma sustained which prompted him to present to the ED. Patient has previously been diagnosed with cervical spinal stenosis, has not had any follow- up with spinal surgeon recently. 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 Patient currently has no symptoms in his lower extremities. 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 Patient denies any current lower extremity weakness, numbness, bowel incontinence, urinary retention, saddle anesthesia, fever, drug use, ear pain, discharge, pain behind ears, diabetes history TRAVEL OUTSIDE OF THE [place] IN LAST 30 DAYS: No - Related Data Allergies/Adverse Reactions: No Known Allergies Allergy (Verified 01/24/20 07:01) Past Medical History - General Information source: Patient - Social History Smoking Status: Former Smoker Chew tobacco use (# tins/day): No Frequency of alcohol use: Rare Drug Abuse: None Family History: Reviewed & Not Pertinent, COPD, DM - Past Medical History Cardiac Medical History: Reports: Hx Hypercholesterolemia, Hx Hypertension Pulmonary Medical History: Reports: Hx COPD, Hx Sleep Apnea - not on CPAP Neurological Medical History: Reports: Hx Migraine Renal/ Medical History: Denies: Hx Peritoneal Dialysis Musculoskeletal Medical History: Reports Hx Musculoskeletal Deformity, Reports Hx Musculoskeletal Trauma Psychiatric Medical History: Reports: Hx Anxiety Past Surgical History: Reports: Hx Abdominal Surgery - hernia repair, Hx Herniorrhaphy, Hx Myringotomy, Hx Orthopedic Surgery - L cervical laminectomies C4-5,5-6,6-7 with micro plates and screws 06/2015, Other - 2 Ear surgeries due to infection - Immunizations Hx Diphtheria, Pertussis, Tetanus Vaccination: Yes Review of Systems - Review of Systems Notes: REVIEW OF SYSTEMS: CONSTITUTIONAL : Denies fever, chills, or sweats. EENT: Denies recent cold/sinus symptoms, denies throat pain CARDIOVASCULAR: Denies chest pain, SERINA RESPIRATORY: Denies cough, denies shortness of breath. GASTROINTESTINAL: Denies abdominal pain, nausea/vomiting. GENITOURINARY: Denies difficulty urinating, painful urination. MUSCULOSKELETAL: + neck pain, -back pain. SKIN: Denies rash or skin lesions. HEMATOLOGIC : Denies easy bruising or bleeding. LYMPHATIC: Denies swollen, enlarged glands. NEUROLOGICAL: Denies headache, denies change in gait. PSYCHIATRIC: Denies anxiety or stress or depression. Physical Exam - Vital signs Vitals: Temp Pulse Resp BP Pulse Ox 97.9 F 92 18 134/94 H 98 02/01/20 19:39 02/01/20 19:39 02/01/20 19:39 02/01/20 19:39 02/01/20 19:39 - Notes Notes: PHYSICAL EXAMINATION: GENERAL: Well-appearing, well-nourished and in no acute distress. HEAD: Atraumatic, normocephalic. EYES: Pupils equal round and appropriate constriction, sclera anicteric, conjunctiva are normal. ENT: nares patent, moist mucous membranes, left cholesteatoma, no mastoid tenderness bilaterally, normal ear positioning, normal external pinnae NECK: Normal range of motion, supple without lymphadenopathy, healed surgical scar, nontender, no deformities LUNGS: Breath sounds clear to auscultation bilaterally and equal. No wheezes rales or rhonchi. HEART: Regular rate and rhythm without murmurs ABDOMEN: Soft, nontender, no guarding, no masses, no CVAT EXTREMITIES: Normal range of motion, no pitting or edema. No cyanosis. NEUROLOGICAL: Awake, alert, conversing appropriately, moves all extremities spontaneously. Cranial nerves II through XII intact bilaterally, normal [id number] bilaterally, 5 out of 5 strength in bilateral lower extremities, 5/5 strength right upper extremity, mild pronator drift on left upper extremity, normal strength in all other upper extremity distributions, DP and radial pulses 2+ bilaterally, no midline spinal tenderness or deformity PSYCH: Normal mood, normal affect. SKIN: Warm, Dry, normal turgor, no rashes or lesions noted. Course - Re-evaluation Re-evalutation: 02/01/20 22:35 Symptoms concerning for possible worsening cervical spinal stenosis although currently lower extremity symptoms are resolved and left upper extremity weakness has been chronically worsening for several months. Obtained CT which showed left mastoiditis which has been unchanged since prior imaging and likely postsurgical change as patient has no symptoms there, no tenderness, no risk factors for mastoiditis, no significant corresponding lab abnormalities. Discussed with Dr. Manning who agrees that this is not inside sales representative of an acute mastoid infection. Patient requires MRI of the neck, offered to transfer patient to facility capable of performing MRI overnight or have patient wait in the ED until MRI available in the morning but patient declined, so will discharge patient AMA and will return tomorrow during MRI hours to obtain C-spine MRI. Patient has capacity to leave AMA and demonstrates understanding of risks and reasonable decision-making capability. Gave extensive return to ED precautions which patient demonstrated understanding of. - Vital Signs Vital signs: Temp Pulse Resp BP Pulse Ox 97.9 F 92 20 152/93 H 98 02/01/20 19:39 02/01/20 19:39 02/01/20 22:01 02/01/20 22:01 02/01/20 22:01 - Laboratory Result Diagrams: 02/01/20 20:27 02/01/20 20:27 Laboratory results interpreted by me: 02/01/20 20:27 Hgb 17.5 H MCH 34.0 H Discharge - Discharge Clinical Impression: Neck pain, Weakness Disposition: AGAINST MEDICAL ADVICE Additional Instructions: You are leaving AGAINST MEDICAL ADVICE. Your symptoms could be due to pressure on your spinal cord which is a dangerous condition that can result in disability, paralysis, and . Please return tomorrow to obtain MRI. There is a risk of further disability, pain, , delay of treatment, delayed diagnosis, need for additional medical care. If not able to return to ED then please schedule urgent follow-up outpatient with spinal surgeon. Follow-up with PCP within 1 week. Referrals: KOREY KUMAR MD [ACTIVE STAFF] - Follow up in 3-5 days FRANCISCA MYERS MD [Primary Care Provider] - Follow up in 1 week
--- NOTE | 2020-02-02 20:20 | EKG REPORT ---
SEVERITY:- NORMAL ECG - SINUS RHYTHM : Confirmed by: Morgan Mares MD 02-Feb-2020 20:18:59
== END 2020-02-01 22:51 | disposition left against medical advice (07) ==
LOC: ER 19:32
DX: H92.01 Otalgia, right ear (principal); M62.81 Muscle weakness (generalized); M54.2 Cervicalgia; W19.XXXA Unspecified fall, initial encounter; H71.92 Unspecified cholesteatoma, left ear; I10 Essential (primary) hypertension; E78.5 Hyperlipidemia, unspecified; J44.9 Chronic obstructive pulmonary disease, unspecified; Z87.891 Personal history of nicotine dependence
CPT/HCPCS: 36415; 70450; 72125; 80053; 84484; 85025; 85610; 85652; 85730; 86140; 93005; 93010; 99285

== ENCOUNTER 2020-02-02 19:09 | Emergency (ER) | payer MEDICAID, OTHER ==
[2020-02-02 19:25] VITALS: BP 148/87
--- NOTE | 2020-02-03 00:45 | ER Document Report ---
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 Patient had no change in symptoms since visit 1 day prior TRAVEL OUTSIDE OF THE [place] IN LAST 30 DAYS: No - Related Data Allergies/Adverse Reactions: No Known Allergies Allergy (Verified 01/24/20 07:01) Past Medical History - General Information source: Patient, [facility] Records - Social History Smoking Status: Former Smoker Frequency of alcohol use: former Family History: Reviewed & Not Pertinent, COPD, DM - Past Medical History Cardiac Medical History: Reports: Hx Hypercholesterolemia, Hx Hypertension Pulmonary Medical History: Reports: Hx COPD, Hx Sleep Apnea - not on CPAP Neurological Medical History: Reports: Hx Migraine Renal/ Medical History: Denies: Hx Peritoneal Dialysis Musculoskeletal Medical History: Reports Hx Musculoskeletal Deformity, Reports Hx Musculoskeletal Trauma Psychiatric Medical History: Reports: Hx Anxiety Past Surgical History: Reports: Hx Abdominal Surgery - hernia repair, Hx Herniorrhaphy, Hx Myringotomy, Hx Orthopedic Surgery - L cervical laminectomies C4-5,5-6,6-7 with micro plates and screws 06/2015, Other - 2 Ear surgeries due to infection - Immunizations Hx Diphtheria, Pertussis, Tetanus Vaccination: Yes Review of Systems - Review of Systems Notes: REVIEW OF SYSTEMS: CONSTITUTIONAL : Denies fever, chills, or sweats. EENT: Denies recent cold/sinus symptoms, denies throat pain CARDIOVASCULAR: Denies chest pain, SERINA RESPIRATORY: Denies cough, denies shortness of breath. GASTROINTESTINAL: Denies abdominal pain, nausea/vomiting. GENITOURINARY: Denies difficulty urinating, painful urination. MUSCULOSKELETAL: + neck pain, -back pain. SKIN: Denies rash or skin lesions. HEMATOLOGIC : Denies easy bruising or bleeding. LYMPHATIC: Denies swollen, enlarged glands. NEUROLOGICAL: Denies headache, denies change in gait. PSYCHIATRIC: Denies anxiety or stress or depression. Physical Exam - Vital signs Vitals: Temp Pulse Resp BP Pulse Ox 98.3 F 81 17 148/87 H 98 02/02/20 19:24 02/02/20 19:24 02/02/20 19:24 02/02/20 19:24 02/02/20 19:24 - Notes Notes: PHYSICAL EXAMINATION: GENERAL: Well-appearing, well-nourished and in no acute distress. HEAD: Atraumatic, normocephalic. EYES: Pupils equal round and appropriate constriction, sclera anicteric, conjunctiva are normal. ENT: nares patent, moist mucous membranes. NECK: Normal range of motion, healed surgical incision LUNGS: Normal respiratory rate and effort, speaking in full sentences HEART: Regular rate, no JVD EXTREMITIES: Normal range of motion, No cyanosis. NEUROLOGICAL: Awake, alert, conversing appropriately, moves all extremities spontaneously. PSYCH: Normal mood, normal affect. SKIN: Warm, Dry, normal turgor, no rashes or lesions noted. Course - Re-evaluation Re-evalutation: 02/03/20 00:43 Patient return for C-spine MRI which was ordered by technical system analyst left prior to time of shift changepatient unable to obtain MRI. Patient still did not want transfers so patient left AMA again to return the next day for MRI. Patient had no change in his symptoms between initial visit and this visit. Patient with capacity to make decisions and given no acute change in symptoms this is reasonable decision making. Will inform incoming physician that patient likely to return later this morning for MRI. Will recommend that it be done emergently as although patient symptoms have not acutely changed he is not able to obtain outpatient MRI for approximately 2 months. - Vital Signs Vital signs: Temp Pulse Resp BP Pulse Ox 98.3 F 81 17 148/87 H 98 02/02/20 19:24 02/02/20 19:24 02/02/20 19:24 02/02/20 19:24 02/02/20 19:24 Discharge - Discharge Clinical Impression: Neck pain Disposition: ELOPED Referrals: FRANCISCA MYERS MD [Primary Care Provider] - Follow up as needed
== END 2020-02-02 23:19 | disposition left against medical advice (07) ==
LOC: ER 19:09
DX: M54.2 Cervicalgia (principal); E78.00 Pure hypercholesterolemia, unspecified; I10 Essential (primary) hypertension; J44.9 Chronic obstructive pulmonary disease, unspecified; Z98.1 Arthrodesis status
CPT/HCPCS: 99281

== ENCOUNTER 2020-02-03 12:14 | Emergency (ER) | payer OTHER ==
--- NOTE | 2020-02-03 13:09 | ER Document Report ---
ED Medical Screen (RME) - General Chief Complaint: Neck Pain >24hrs old Stated Complaint: HEAD INJURY Time Seen by Provider: 02/03/20 13:03 Primary Care Provider: FRANCISCA MYERS MD [Primary Care Provider] - Follow up as needed Notes: Patient presents complaining of decreased arm strength to the upper extremity. Patient states he has had neck pain as well. Patient has a history of previous cervical spine fusion. Patient fell 3 days ago was evaluated in the ER and provider at that time wanted him to have an MRI. Patient is here for MRI imaging. I have greeted and performed a rapid initial assessment of this patient. A comprehensive ED assessment and evaluation of the patient, analysis of test results and completion of the medical decision making process will be conducted by additional ED providers. TRAVEL OUTSIDE OF THE [place] IN LAST 30 DAYS: No - Related Data Allergies/Adverse Reactions: No Known Allergies Allergy (Verified 01/24/20 07:01) Past Medical History - Past Medical History Cardiac Medical History: Reports: Hx Hypercholesterolemia, Hx Hypertension Pulmonary Medical History: Reports: Hx COPD, Hx Sleep Apnea - not on CPAP Neurological Medical History: Reports: Hx Migraine Renal/ Medical History: Denies: Hx Peritoneal Dialysis Musculoskeltal Medical History: Reports Hx Musculoskeletal Deformity, Reports Hx Musculoskeletal Trauma Psychiatric Medical History: Reports: Hx Anxiety Past Surgical History: Reports: Hx Abdominal Surgery - hernia repair, Hx Herniorrhaphy, Hx Myringotomy, Hx Orthopedic Surgery - L cervical laminectomies C4-5,5-6,6-7 with micro plates and screws 06/2015, Other - 2 Ear surgeries due to infection - Immunizations Hx Diphtheria, Pertussis, Tetanus Vaccination: Yes Physical Exam - Vital signs Vitals: Temp Pulse Resp BP Pulse Ox 97.9 F 82 20 151/94 H 97 02/03/20 13:02 02/03/20 13:02 02/03/20 13:02 02/03/20 13:02 02/03/20 13:02 - General General appearance: Appears well, Alert Notes: Cervical spine tenderness Course - Vital Signs Vital signs: Temp Pulse Resp BP Pulse Ox 97.9 F 82 20 151/94 H 97 02/03/20 13:02 02/03/20 13:02 02/03/20 13:02 02/03/20 13:02 02/03/20 13:02 Doctor's Discharge - Discharge Referrals: FRANCISCA MYERS MD [Primary Care Provider] - Follow up as needed
--- NOTE | 2020-02-03 14:11 | RADIOLOGY REPORT (SQ) ---
EXAM DESCRIPTION: MRI CERVICAL SPINE WITHOUT IMAGES COMPLETED DATE/TIME: 02/03/2020 1:56 pm REASON FOR STUDY: neck pain, weak database manager COMPARISON: 02/01/[address] TECHNIQUE: Sagittal and Axial imaging includes T1, T2, STIR and gradient echo sequences. LIMITATIONS: None. FINDINGS: ALIGNMENT: Normal. VERTEBRAE: Intact. BONE MARROW: Normal. No marrow replacement or reactive changes. DISCS: Stable mild disc disease including disc height and signal loss. Individual levels are describ ed below. HARDWARE: Dorsal instrumentation artifact, mild. This is present at C4 and C5 and C6 on the left, pl ate and screw fixation. CORD AND BASE OF BRAIN: Allowing for mild limiting instrumentation artifact, cord signal appears to b e normal. No inferior brain lesions. SOFT TISSUES: No soft tissue masses. C1-C2: No significant spinal stenosis. C2-C3: No significant spinal stenosis or exit foraminal stenosis. C3-C4: Mild bilateral foraminal narrowing C4-C5: Uncovertebral spurring on the right with what appears to be marked right foraminal stenosis. The left neural foramen is less well assessed due to artifact. There is probably grossly moderate le ft foraminal narrowing. C5-C6: Limiting artifact. Mild uncovertebral spurring. Suspect up to moderate foraminal narrowing. C6-C7: Limiting artifact. There appears to be disc bulge without cord compression or high-grade cent ral stenosis. Bilateral foraminal narrowing is likely moderate. C7-T1: No significant spinal stenosis or exit foraminal stenosis. UPPER THORACIC: Incompletely imaged. No significant spinal stenosis or exit foraminal stenosis. OTHER: No other significant finding. IMPRESSION: 1. Postoperative and degenerative changes. No surekha cord compression or myelopathic signal in the co rd. Variable foraminal stenosis as outlined above. 2. No fracture or worrisome bone lesion or spinal malalignment. TECHNICAL DOCUMENTATION: JOB ID: [id number] [employer]- All Rights Reserved Reading location - IP/workstation name: [email or web address]
--- NOTE | 2020-02-03 18:35 | ER Document Report ---
ED General - General Chief Complaint: Neck Pain >24hrs old Stated Complaint: HEAD INJURY Time Seen by Provider: 02/03/20 13:03 Primary Care Provider: SARAH CORDON DO [NO LOCAL MD] - Follow up in 3-5 days FRANCISCA MYERS MD [Primary Care Provider] - Follow up as needed TRAVEL OUTSIDE OF THE [place] IN LAST 30 DAYS: No - HPI Notes: Patient is a 44-year-old male who presents to the ER for an MRI. Patient was walking several days ago when his legs gave out. Patient came to the ER and had a CT scan of his neck. He has had some neck pain as well as increasing left arm weakness. He has had this left arm weakness and pain since 2018 when he had cervical surgery. He states he thinks it is worsening and he is dropping things. He has tried to talk about this with his neurosurgeon but would like to have a second opinion he as he has been unable to get any answers. Patient was recommended to get an MRI at his first ER visit but did not want to wait so he left AMA. He returned again to the ER yesterday for an MRI but they were unable to do it at that time. Patient again returns today for an MRI. He is denying any new weakness or numbness. He denies any other complaints. - Related Data Allergies/Adverse Reactions: No Known Allergies Allergy (Verified 01/24/20 07:01) Past Medical History - General Information source: Patient, Relative - Social History Smoking Status: Former Smoker Family History: Reviewed & Not Pertinent, COPD, DM - Past Medical History Cardiac Medical History: Reports: Hx Hypercholesterolemia, Hx Hypertension Pulmonary Medical History: Reports: Hx COPD, Hx Sleep Apnea - not on CPAP Neurological Medical History: Reports: Hx Migraine Renal/ Medical History: Denies: Hx Peritoneal Dialysis Musculoskeletal Medical History: Reports Hx Musculoskeletal Deformity, Reports Hx Musculoskeletal Trauma Psychiatric Medical History: Reports: Hx Anxiety Past Surgical History: Reports: Hx Abdominal Surgery - hernia repair, Hx Herniorrhaphy, Hx Myringotomy, Hx Orthopedic Surgery - L cervical laminectomies C4-5,5-6,6-7 with micro plates and screws 06/2015, Other - 2 Ear surgeries due to infection - Immunizations Hx Diphtheria, Pertussis, Tetanus Vaccination: Yes Review of Systems - Review of Systems Notes: CONSTITUTIONAL: No fever, fatigue or weight loss. SKIN: No rash. HENT: No congestion, ear pain, or sore throat. EYES: No recent vision problems or eye pain. CARDIOVASCULAR: No chest pain or edema. RESPIRATORY: No cough, shortness of breath, congestion, or wheezing. GASTROINTESTINAL: No abdominal pain, nausea, vomiting, bloody stools or diarrhea. GENITOURINARY: No dysuria. MUSCULOSKELETAL: No joint pain or swelling. Positive for chronic neck pain. LYMPHATIC: No swollen glands. NEUROLOGIC: No seizures. No headache. Positive for feelings of weakness in left arm which is chronic. HEMATOLOGIC: No unusual bruising or bleeding. PSYCHIATRIC: No depression or anxiety. Physical Exam - Vital signs Vitals: Temp Pulse Resp BP Pulse Ox 97.9 F 82 20 151/94 H 97 02/03/20 13:02 02/03/20 13:02 02/03/20 13:02 02/03/20 13:02 02/03/20 13:02 - General General appearance: Appears well Notes: VITAL SIGNS: Within normal limits. GENERAL: No acute distress, non-toxic appearance. HEAD: Normal with no signs of head trauma. EYES: PERRLA, EOMI, conjunctiva normal, no discharge. EARS: Hearing grossly intact. NOSE: Normal. THROAT: Oropharynx is normal. NECK: Normal range of motion, no tenderness, supple, no lymphadenopathy, No adenopathy, no JVD. CHEST: Clear breath sounds bilaterally. No wheezes, rales, or rhonchi. CARDIAC: Regular rate and rhythm. S1 and S2, without murmurs, gallops, or rubs. VASCULAR: No Edema. Peripheral pulses normal and equal in all extremities. ABDOMEN: Normal and soft with no tenderness, no masses or pulsatile masses. GASTROINTESTINAL: Bowel sounds normal GENITOURINARY: Normal, No tenderness LYMPATHTIC: No lymphadenopathy noted. MUSCULOSKELETAL: Good range of motion of all major joints. Extremities without clubbing, cyanosis or edema. NEUROLOGICAL: Alert and oriented x 3. No focal sensory or strength deficits. Speech normal. Follows commands appropriately. Strenght is 5 out of 5 bilaterally in upper and lower extremities. Sensation is intact bilaterally. 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 Pulses normal. PSYCHIATRIC: Normal Affect, judgement and mood. SKIN: Normal appearance with no rashes or lesions. Course - Re-evaluation Re-evalutation: 02/03/20 21:08 Patient's MRI shows foraminal stenosis and degenerative changes. There is also a disc bulge. There is no evidence of cord compression. Patient's neurological exam is normal. I did refer him to a neurosurgeon in [place] as he wants a second opinion from his neurosurgeon. Patient was instructed that he can take NSAIDs and Tylenol as needed. He was given strict return precautions for worsening weakness, numbness, any other concerning symptoms. Patient is very agreeable to this plan. - Vital Signs Vital signs: Temp Pulse Resp BP Pulse Ox 98.5 F 80 18 130/99 H 97 02/03/20 18:23 02/03/20 18:23 02/03/20 18:23 02/03/20 18:23 02/03/20 18:23 Discharge - Discharge Clinical Impression: Neck pain, Foraminal stenosis of cervical region Condition: Stable Disposition: HOME, SELF-CARE Additional Instructions: Please follow-up with neurosurgery. You may take Tylenol and ibuprofen as prescribed. Return to the ER for any weakness, numbness, any other symptoms. Referrals: FRANCISCA MYERS MD [Primary Care Provider] - Follow up as needed SARAH CORDON DO [NO LOCAL MD] - Follow up in 3-5 days
[2020-02-03 18:38] VITALS: BP 130/99
== END 2020-02-03 18:37 | disposition home or self-care (01) ==
LOC: ER 12:14
DX: M48.02 Spinal stenosis, cervical region (principal); M54.2 Cervicalgia; M62.81 Muscle weakness (generalized); M79.602 Pain in left arm; S09.90XA Unspecified injury of head, initial encounter; W19.XXXA Unspecified fall, initial encounter; Z87.891 Personal history of nicotine dependence; I10 Essential (primary) hypertension; J44.9 Chronic obstructive pulmonary disease, unspecified
CPT/HCPCS: 72141; 99284

== ENCOUNTER 2020-02-09 21:30 | Emergency (ER) | payer OTHER ==
[2020-02-09] MEDS ORDERED: BUTALB/ACETAMINOPHEN/CAFFEINE 1 TAB EACH PO ONE (21:53)
--- NOTE | 2020-02-09 21:54 | ER Document Report ---
ED Medical Screen (RME) - General Chief Complaint: Headache Stated Complaint: HEADACHE Time Seen by Provider: 02/09/20 21:44 Primary Care Provider: FRANCISCA MYERS MD [Primary Care Provider] - Follow up as needed TRAVEL OUTSIDE OF THE [place] IN LAST 30 DAYS: No - HPI Notes: 02/09/20 21:53 44-year-old male with past medical history for cervical radiculopathy and herniated disc to the emergency department with complaints of right-sided headache has been ongoing since he sustained a fall about 2-1/2 to 3 weeks ago. When he fell, he had worsening of his neck symptoms. He was seen in our emergency department and MRI of his neck was done. It showed some foraminal stenosis as well as little bit of a bulging disc. He states at that time he was told he may have a little bit of a headache with his neck symptoms. He states that he has had a total level 1 headache since the fall but recently has been increasing to a 2. He states has been taking Tylenol Motrin without a lot of benefit. Denies photophobia, nausea vomiting. He has had headaches in the past but this headache is different from prior. He states he has seen a headache specialist in the past for all of her headaches and was given topiramate without any benefit. He denies any new symptoms with his neck or new focal neurological symptoms. I performed a brief medical screening exam on the patient determined that the patient needs further evaluation and management by main side provider. I have placed initial orders to help expedite care. - Related Data Allergies/Adverse Reactions: No Known Allergies Allergy (Verified 02/09/20 21:43) Past Medical History - Social History Frequency of alcohol use: None - Past Medical History Cardiac Medical History: Reports: Hx Hypercholesterolemia, Hx Hypertension Pulmonary Medical History: Reports: Hx COPD, Hx Sleep Apnea - not on CPAP Neurological Medical History: Reports: Hx Migraine Renal/ Medical History: Denies: Hx Peritoneal Dialysis Musculoskeltal Medical History: Reports Hx Musculoskeletal Deformity, Reports Hx Musculoskeletal Trauma Psychiatric Medical History: Reports: Hx Anxiety Past Surgical History: Reports: Hx Abdominal Surgery - hernia repair, Hx Herniorrhaphy, Hx Myringotomy, Hx Orthopedic Surgery - L cervical laminectomies C4-5,5-6,6-7 with micro plates and screws 06/2015, Other - 2 Ear surgeries due to infection - Immunizations Hx Diphtheria, Pertussis, Tetanus Vaccination: Yes Physical Exam - Vital signs Vitals: Temp Pulse Resp BP Pulse Ox 98.4 F 86 20 166/97 H 98 02/09/20 21:43 02/09/20 21:43 02/09/20 21:43 02/09/20 21:43 02/09/20 21:43 Course - Vital Signs Vital signs: Temp Pulse Resp BP Pulse Ox 98.4 F 86 20 166/97 H 98 02/09/20 21:43 02/09/20 21:43 02/09/20 21:43 02/09/20 21:43 02/09/20 21:43 Doctor's Discharge - Discharge Referrals: FRANCISCA MYERS MD [Primary Care Provider] - Follow up as needed
[2020-02-10 00:26] VITALS: BP 173/105
--- NOTE | 2020-02-10 00:27 | ER Document Report ---
HPI - HPI Time Seen by Provider: 02/09/20 21:44 Pain Level: 1 Notes: 44-year-old male patient presents the emergency department chief complaint of persistent headaches. Patient reports he has been ongoing for quite some time now. He denies any fever, chills, nuchal rigidity. Denies reaching max intensity quickly. He was initially seen by provider in triage and was medicated for his symptoms. - CONSTITUTIONAL Constitutional: DENIES: Fever, Chills - REPRODUCTIVE Reproductive: DENIES: : Past Medical History - General Information source: Patient - Social History Smoking Status: Former Smoker Frequency of alcohol use: None Family History: Reviewed & Not Pertinent, COPD, DM Patient has homicidal ideation: No - Past Medical History Cardiac Medical History: Reports: Hx Hypercholesterolemia, Hx Hypertension Pulmonary Medical History: Reports: Hx COPD, Hx Sleep Apnea - not on CPAP Neurological Medical History: Reports: Hx Migraine Renal/ Medical History: Denies: Hx Peritoneal Dialysis Musculoskeletal Medical History: Reports Hx Musculoskeletal Deformity, Reports Hx Musculoskeletal Trauma Psychiatric Medical History: Reports: Hx Anxiety Past Surgical History: Reports: Hx Abdominal Surgery - hernia repair, Hx Herniorrhaphy, Hx Myringotomy, Hx Orthopedic Surgery - L cervical laminectomies C4-5,5-6,6-7 with micro plates and screws 06/2015, Other - 2 Ear surgeries due to infection - Immunizations Hx Diphtheria, Pertussis, Tetanus Vaccination: Yes Vertical Provider Document - CONSTITUTIONAL Notes: PHYSICAL EXAMINATION: GENERAL: Well-appearing, well-nourished and in no acute distress. HEAD: Atraumatic, normocephalic. EYES: Pupils equal round extraocular movements intact, conjunctiva are normal. ENT: Nares patent NECK: Normal range of motion LUNGS: No respiratory distress Musculoskeletal: Normal range of motion NEUROLOGICAL: Normal speech, normal gait. PSYCH: Normal mood, normal affect. SKIN: Warm, Dry, normal turgor, no rashes or lesions noted. - INFECTION CONTROL TRAVEL OUTSIDE OF THE [place] IN LAST 30 DAYS: No Course - Re-evaluation Re-evalutation: Patient reports headache completely resolved after administration of Fioricet here in the emergency department. He is requesting a prescription for same. A prescription for a short course of this will be provided. Encourage patient to take Tylenol or ibuprofen first and then take the Fioricet if symptoms persist. I did tariff counsel him that there is acetaminophen/Tylenol in this medication so to be cautious of dosages. Patient verbalized understanding and agreement with this plan. He will follow-up with his primary care provider. - Vital Signs Vital signs: Temp Pulse Resp BP Pulse Ox 98.4 F 61 16 173/105 H 100 02/09/20 21:43 02/10/20 00:22 02/10/20 00:22 02/10/20 00:22 02/10/20 00:22 Discharge - Discharge Clinical Impression: Headache Qualifiers: Headache type: unspecified Headache chronicity pattern: unspecified pattern Intractability: not intractable Qualified Code(s): R51.9 - Headache, unspecified Condition: Stable Disposition: HOME, SELF-CARE Additional Instructions: Take medication as prescribed for severe headache. If you develop very less severe headache please try taking Tylenol or ibuprofen first. Follow-up with your primary care provider regarding today's elevated blood pressure. Prescriptions: Butalb/Acetaminophen/Caffeine [Fioricet (50-325-40 mg) Tablet] 1 - 2 tab PO Q4HP PRN #20 tab PRN Reason: Referrals: FRANCISCA MYERS MD [Primary Care Provider] - Follow up as needed
== END 2020-02-10 00:31 | disposition home or self-care (01) ==
LOC: ER 21:30
DX: R51.9 Headache, unspecified (principal); I10 Essential (primary) hypertension; J44.9 Chronic obstructive pulmonary disease, unspecified; Z87.891 Personal history of nicotine dependence
CPT/HCPCS: 99283; J3490